=== PATIENT | female | born 1940 | race African-American/Black ===

== ENCOUNTER 2016-11-23 18:23 | Inpatient (IN) | payer BC, OTHER ==
--- NOTE | 2016-11-23 19:11 | PDOC ---
History of Present Illness - History of Present Illness Initial Comments: 11/23/16 20:10 The patient is a 76 year old female, with a significant past medical history of COPD/Asthma, who presents to the emergency department sent by PCP for dyspnea on exertion and dry cough for 1 week. She states she is not dyspneic at baseline , however, has noticed worsening shortness of breath with walking short distances. She also reports a dry, nonproductive cough, which has been worsening over the past few days. She states her asthma is typically controlled with at-home nebulizer treatments, but states they have not been helping with her current symptoms. She states she was seen at her PCP office today, received 2 nebulizer treatments and the physician referred her to the ED for pulse ox of 86% after receiving the treatments. She denies chest pain, headache and dizziness. She denies fever, chills, nausea , vomit, diarrhea and constipation. She denies dysuria, frequency, urgency and hematuria. PCP - Dr. Edilson Day <Nathalie Benjamin - Last Filed: 11/23/16 21:07> <Rand Heard - Last Filed: 11/24/16 01:14> - General Chief Complaint: Shortness of Breath Stated Complaint: PCP SENT/ASTHMA Time Seen by Provider: 11/23/16 18:50 Past History <Nathalie Benjamin - Last Filed: 11/23/16 21:07> - Past Medical History Asthma: Yes Cancer: Yes (rt breast, colon ,ovarian) COPD: Yes Diabetes: Yes HTN: Yes Hypercholesterolemia: Yes - Surgical History Abdominal Surgery: Yes (colon) Appendectomy: Yes - Psycho/Social/Smoking Cessation Hx Anxiety: No Suicidal Ideation: No Smoking History: Former smoker Have you smoked in the past 12 months: No Information on smoking cessation initiated: No Hx Alcohol Use: No Drug/Substance Use Hx: No Substance Use Type: None <Rand Heard - Last Filed: 11/24/16 01:14> - Past Medical History Allergies/Adverse Reactions: Allergies Allergy/AdvReac Type Severity Reaction Status Date / Time No Known Allergies Allergy Unverified 11/23/16 18:42 Home Medications: Ambulatory Orders Insulin Glargine,Hum.rec.anlog [Lantus Solostar] 60 unit SQ ASDIR 02/06/14 Prednisone 20 mg PO DAILY #90 04/16/14 Albuterol Sulfate [Proair Respiclick] 90 mcg IH ASDIR 11/23/16 Amlodipine Besylate [Norvasc -] 10 mg PO DAILY 11/23/16 Cholecalciferol (Vitamin D3) [Vitamin D3 -] 1,000 unit PO DAILY 11/23/16 Folic Acid - 1 mg PO DAILY 11/23/16 Ipratropium [place] 0.2 mg IH ASDIR 11/23/16 Lisinopril [Prinivil] 20 mg PO DAILY 11/23/16 Salmeterol/Fluticasone [Advair 500Mcg/50Mcg] 1 inh PO BID 11/23/16 Simvastatin [Zocor] 10 mg PO HS 11/23/16 Sitagliptin Phos/Metformin HCl [Janumet 50-500 mg Tablet] 1 each PO DAILY Review of Systems - Review of Systems Able to Perform ROS?: Yes Comments:: 11/23/16 20:10 CONSTITUTIONAL: Absent: fever, chills, diaphoresis, generalized weakness, malaise, loss of appetite HEENT: Absent: rhinorrhea, nasal congestion, throat pain, throat swelling, difficulty swallowing, mouth swelling, ear pain, eye pain, visual Changes CARDIOVASCULAR: Absent: chest pain, syncope, palpitations, irregular heart rate, lightheadedness , peripheral edema RESPIRATORY: (+) cough, shortness of breath, dyspnea with exertion, Absent: orthopnea, wheezing, stridor, hemoptysis GASTROINTESTINAL: Absent: abdominal pain, abdominal distension, nausea, vomiting, diarrhea, constipation, melena, hematochezia GENITOURINARY: Absent: dysuria, frequency, urgency, hesitancy, hematuria, flank pain, genital pain MUSCULOSKELETAL: Absent: myalgia, arthralgia, joint swelling SKIN: Absent: rash, itching, pallor HEMATOLOGIC/IMMUNOLOGIC: Absent: easy bleeding, easy bruising, lymphadenopathy, frequent infections ENDOCRINE: Absent: unexplained weight gain, unexplained weight loss, heat intolerance, cold intolerance NEUROLOGIC: Absent: headache, focal weakness or paresthesias, dizziness, unsteady gait, seizure, mental status changes, bladder or bowel incontinence PSYCHIATRIC: Absent: anxiety, depression, suicidal or homicidal ideation, hallucinations. <Nathalie Benjamin - Last Filed: 11/23/16 21:07> *Physical Exam - Vital Signs Last Vital Signs Temp Pulse Resp BP Pulse Ox 97.7 F 88 18 143/76 93 L 11/23/16 18:42 11/23/16 18:42 11/23/16 18:42 11/23/16 18:42 11/23/16 18:42 - Physical Exam Comments: 11/23/16 20:10 GENERAL: Well developed, well nourished. Awake and alert. No acute distress. HEENT: Normocephalic, atraumatic. PERRLA, EOMI. No conjunctival pallor. Sclera are non- icteric. Moist mucous membranes. Oropharynx is clear. NECK: Supple. Full ROM. No JVD. Carotid pulses 2+ and symmetric, without bruits. No thyromegaly. No lymphadenopathy. CARDIOVASCULAR: Regular rate and rhythm. No murmurs, rubs, or gallops. Distal pulses are 2+ and symmetric. PULMONARY: No evidence of respiratory distress. Lungs clear to auscultation bilaterally. No wheezing, rales or rhonchi. ABDOMINAL: Soft. Non-tender. Non-distended. No rebound or guarding. No organomegaly. Normoactive bowel sounds. MUSCULOSKELETAL Normal range of motion at all joints. No bony deformities or tenderness. No CVA tenderness. EXTREMITIES: No cyanosis. No clubbing. No edema. No calf tenderness. SKIN: Warm and dry. Normal capillary refill. No rashes. No jaundice. NEUROLOGICAL: Alert, awake, appropriate. Cranial nerves 2-12 intact. Normoreflexic in the upper and lower extremities. Normal speech. Toes are down-going bilaterally. Gait is normal without ataxia. PSYCHIATRIC: Cooperative. Good eye contact. Appropriate mood and affect. <Nathalie Benjamin - Last Filed: 11/23/16 21:07> - Vital Signs Last Vital Signs Temp Pulse Resp BP Pulse Ox 97.7 F 88 18 143/76 93 L 11/23/16 18:42 11/23/16 18:42 11/23/16 18:42 11/23/16 18:42 11/23/16 18:42 <Rand Heard - Last Filed: 11/24/16 01:14> ED Treatment Course - LABORATORY CBC & Chemistry Diagram: 11/23/16 19:50 11/23/16 19:50 - Medications Given in the ED: ED Medications Discontinued Medications Generic Name Dose Route Start Last Admin Trade Name [place] PRN Reason Stop Dose Admin Magnesium Sulfate 2 gm 11/23/16 19:44 11/23/16 20:02 Magnesium Sulfate IVPB 11/23/16 19:45 2 gm ONCE ONE Administration <Nathalie Benjamin - Last Filed: 11/23/16 21:07> - LABORATORY CBC & Chemistry Diagram: 11/23/16 19:50 11/23/16 19:50 <Rand Heard - Last Filed: 11/24/16 01:14> Medical Decision Making - Medical Decision Making 11/23/16 21:07 Dr. Hayley Corey was paged requesting a callback for doctor to doctor consult regarding patient admission. <Nathalie Benjamin - Last Filed: 11/23/16 21:07> - Medical Decision Making 11/24/16 01:07 76-year-old female sent from Dr. Petty's office for admission for asthma exacerbation Dr. Petty did give her steroids IM and several breathing treatments prior to her arrival. -his referral note stated that she was 85% pulse ox when she arrived in his office. The patient states that she is oxygen dependent and usually uses about 2 L nasal cannula at home Patient still has scattered wheezing She was admitted for asthma exacerbation <Rand Heard - Last Filed: 11/24/16 01:14> *DC/Admit/Observation/Transfer - Attestations Scribe Attestion: 11/23/16 20:11 Documentation prepared by Nathalie Benjamin, acting as medical appointment clerk for Rand Heard MD <Nathalie Benjamin - Last Filed: 11/23/16 21:07> - Discharge Dispostion Admit: Yes <Rand Heard - Last Filed: 11/24/16 01:14> Diagnosis at time of Disposition: Asthma exacerbation - Referrals
[2016-11-23] MEDS ORDERED: MAGNESIUM SULF 50% (8.12 MEQ/2 ML-1 GM VIAL) IVPB ONE (19:44)
[2016-11-23] MEDS ORDERED: MAGNESIUM SULF 50% (8.12 MEQ/2 ML-1 GM VIAL) ONE (19:47)
[2016-11-23] MEDS ORDERED: ALBUTEROL SO4 2.5/IPRATROPIUM 0.5 INH SOL 3 ML VIAL.NEB. NEB ONE (19:51)
[2016-11-23] MEDS ORDERED: predniSONE 20 MG TABLET (UD) PO ONE (20:10)
[2016-11-23 20:11] LABS: BASOPHIL 0.6 % (0-2.0); EOSINOPHIL 3.2 % (0-4.5); MCH 22.1 pg (25.7-33.7); MCHC 31.4 g/dl (32.0-36.0); MEAN CELL VOLUME 70.3 fl (80-96); MEAN PLT VOLUME 8.7 fl (7.5-11.1); NEUTROPHILS 74.2 % (42.8-82.8); PLATELET COUNT 408 K/MM3 (134-434); RDW 16.6 % (11.6-15.6)
[2016-11-23 20:24] LABS: ALBUMIN 3.7 g/dl (3.4-5.0); ANION GAP 10 (8-16); BILIRUBIN,TOTAL 0.3 mg/dL (0.2-1.0); CALCIUM 9.6 mg/dL (8.5-10.1); CO2 28 mmol/L (21-32); CREATININE 0.8 mg/dL (0.55-1.02); GLUCOSE,RANDOM 123 mg/dL (74-106); SGOT/AST 9 U/L (15-37); SGPT/ALT 16 U/L (12-78)
[2016-11-23 20:25] LABS: ALK PHOS 135 U/L (45-117); INR 1.07 (0.82-1.09); PROTHROMBIN TIME (PATIENT) 11.8 SEC (9.98-11.88); TOT PROT 7.1 g/dl (6.4-8.2)
[2016-11-23 20:28] LABS: TROPONIN I < 0.02 ng/ml (0.00-0.05)
[2016-11-23] MEDS ORDERED: HEMOQUE CONTROL SOLUTION ONE (20:28)
[2016-11-23] MEDS ORDERED: predniSONE 20 MG TABLET (UD) ONE ×2 (20:28→20:50)
[2016-11-23] MEDS ORDERED: ALBUTEROL SO4 2.5/IPRATROPIUM 0.5 INH SOL 3 ML VIAL.NEB. NEB PRN (21:14)
[2016-11-23] MEDS: ATORVASTATIN CA 10 MG TABLET (FP) PO SCH (23:08)
[2016-11-23] MEDS: BUDESONIDE/FORMETEROL FUMARATE 160/4.5 mcg INHALER IH SCH (23:12)
[2016-11-23 23:40] VITALS: BMI 31.0
[2016-11-24] MEDS: methylPREDNISolone NA SUCC 125 MG/2 ML VIAL IVPB SCH ×2 (01:56→10:23)
[2016-11-24] MEDS: metFORMIN HCL 500 MG TABLET (FP) PO SCH (06:27)
[2016-11-24] MEDS: sitaGLIPtin PHOSPHATE 50 MG TABLET PO SCH (06:29)
[2016-11-24] MEDS: INSULIN SLIDING SCALE (NOVOLOG) 1 VIAL SQ SCH ×3 (06:30→18:36)
[2016-11-24] MEDS ORDERED: INSULIN DETEMIR 100 UNITS/ML MDV SQ SCH (07:00)
[2016-11-24 08:26] LABS: BASOPHIL 0.1 % (0-2.0); EOSINOPHIL 0.5 % (0-4.5); MCH 22.3 pg (25.7-33.7); MCHC 31.4 g/dl (32.0-36.0); MEAN PLT VOLUME 8.3 fl (7.5-11.1); NEUTROPHILS 95.1 % (42.8-82.8); PLATELET COUNT 390 K/MM3 (134-434); RDW 16.1 % (11.6-15.6); WHITE BLOOD COUNT 11.7 K/mm3 (4.0-10.0)
[2016-11-24 09:35] LABS: ALBUMIN 3.6 g/dl (3.4-5.0); ALK PHOS 131 U/L (45-117); ANION GAP 12 (8-16); BILIRUBIN,TOTAL 0.4 mg/dL (0.2-1.0); CALCIUM 9.6 mg/dL (8.5-10.1); CO2 26 mmol/L (21-32); CREATININE 0.9 mg/dL (0.55-1.02); GLUCOSE,RANDOM 152 mg/dL (74-106); SGOT/AST 7 U/L (15-37); SGPT/ALT 15 U/L (12-78); TOT PROT 7.4 g/dl (6.4-8.2)
[2016-11-24] MEDS ORDERED: PATIENT'S OWN MEDICATION (NON-FORMULARY) (Sitagliptin Phos/Metformin Hcl [Janumet 50-500 M PO SCH (10:00)
[2016-11-24] MEDS: amLODIPine BESYLATE 10 MG TABLET (FP) PO SCH (10:23)
[2016-11-24] MEDS: FOLIC ACID 1 MG TABLET (FP) PO SCH (10:23)
[2016-11-24] MEDS: PANTOPRAZOLE 40 MG TABLET (FP) PO SCH (10:23)
[2016-11-24] MEDS: LISINOPRIL 20 MG TABLET (FP) PO SCH (10:23)
[2016-11-24] MEDS: BUDESONIDE/FORMETEROL FUMARATE 160/4.5 mcg INHALER IH SCH ×2 (10:24→22:29)
--- NOTE | 2016-11-24 11:21 | HP ---
Admitting History and Physical - Primary Care Physician PCP: Edilson Day - Admission Chief Complaint: SOB History of Present Illness: -ER HISTORY History of Present Illness Initial Comments: 11/23/16 20:10 The patient is a 76 year old female, with a significant past medical history of COPD/Asthma, who presents to the emergency department sent by PCP for dyspnea on exertion and dry cough for 1 week. She states she is not dyspneic at baseline , however, has noticed worsening shortness of breath with walking short distances. She also reports a dry, nonproductive cough, which has been worsening over the past few days. She states her asthma is typically controlled with at-home nebulizer treatments, but states they have not been helping with her current symptoms. She states she was seen at her PCP office today, received 2 nebulizer treatments and the physician referred her to the ED for pulse ox of 86% after receiving the treatments. She denies chest pain, headache and dizziness. She denies fever, chills, nausea , vomit, diarrhea and constipation. She denies dysuria, frequency, urgency and hematuria. PCP - Dr. 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 She has worsening SOB for 1 week - exertional dyspnea . She has chronic exertional dyspnea , orthopnea, but it has worsened for the past week. Denies any fever, chills, cold like symptoms Has not seen a cloth doubling machine operator No chest pain States she never has wheezing History Source: Patient Limitations to Obtaining History: No Limitations - Past Medical History Cardiovascular: Yes: HTN Pulmonary: Yes: Asthma, COPD Endocrine: Yes: Diabetes Mellitus - Smoking History Smoking history: Former smoker Have you smoked in the past 12 months: No If you are a former smoker, when did you quit?: years ago - Alcohol/Substance Use Hx Alcohol Use: No Home Medications - Allergies Allergies/Adverse Reactions: Allergies Allergy/AdvReac Type Severity Reaction Status Date / Time No Known Allergies Allergy Unverified 11/23/16 18:42 - Home Medications Home Medications: Ambulatory Orders Insulin Glargine,Hum.rec.anlog [Lantus Solostar] 60 unit SQ ASDIR 04/16/14 Prednisone 20 mg PO DAILY #90 02/06/14 Albuterol Sulfate [Proair Respiclick] 90 mcg IH ASDIR 11/23/16 Amlodipine Besylate [Norvasc -] 10 mg PO DAILY 11/23/16 Cholecalciferol (Vitamin D3) [Vitamin D3 -] 1,000 unit PO DAILY 11/23/16 Folic Acid - 1 mg PO DAILY 11/23/16 Ipratropium [place] 0.2 mg IH ASDIR 11/23/16 Lisinopril [Prinivil] 20 mg PO DAILY 11/23/16 Salmeterol/Fluticasone [Advair 500Mcg/50Mcg] 1 inh PO BID 11/23/16 Simvastatin [Zocor] 10 mg PO HS 11/23/16 Sitagliptin Phos/Metformin HCl [Janumet 50-500 mg Tablet] 1 each PO DAILY Review of Systems - Review of Systems Constitutional: denies: Chills, Fever Cardiovascular: denies: Chest Pain Respiratory: reports: Exercise Intolerance, SOB Physical Examination Vital Signs: Vital Signs Temperature 98.5 F 11/24/16 06:00 Pulse Rate 83 11/24/16 06:00 Respiratory Rate 20 11/24/16 06:00 Blood Pressure 109/58 11/24/16 06:00 O2 Sat by Pulse Oximetry (%) 98 11/23/16 23:44 Constitutional: Yes: No Distress, Calm Cardiovascular: Yes: Regular Rate and Rhythm Respiratory: Yes: Diminished (decreased breath sounds) Gastrointestinal: Yes: Normal Bowel Sounds, Soft, Abdomen, Obese. No: Distention, Tenderness Edema: Yes Edema: LLE: Trace, RLE: Trace Psychiatric: Yes: Alert, Oriented Labs: CBC, BMP 11/24/16 08:05 11/24/16 08:05 Imaging - Results Chest X-ray: Image Reviewed (atelectasis, granuloma) EKG: Image Reviewed (Sinus) Problem List - Problems (1) Asthma exacerbation Code(s): J45.901 - UNSPECIFIED ASTHMA WITH (ACUTE) EXACERBATION (2) COPD (chronic obstructive pulmonary disease) Code(s): J44.9 - CHRONIC OBSTRUCTIVE PULMONARY DISEASE, UNSPECIFIED Qualifiers : COPD type: COPD with acute exacerbation Qualified Code(s): J44.1 - Chronic obstructive pulmonary disease with (acute) exacerbation (3) 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 (4) Diastolic CHF Code(s): I50.30 - UNSPECIFIED DIASTOLIC (CONGESTIVE) HEART FAILURE Qualifiers : Congestive heart failure chronicity: chronic Qualified Code(s): I50.32 - Chronic diastolic (congestive) heart failure Assessment/Plan PLAN --- Continue with Solumedrol -- start Zithromax -- Nebs standing -- check Echo and CT chest -- Pulmonary evaluation -- GI prophylaxis- Protonix -- DVT prophylaxis-- Lovenox -- start IV lasix for diastolic dysfunction due to COPD
--- NOTE | 2016-11-24 13:44 | EKG ---
Test Reason : Blood Pressure : / mmHG Vent. Rate : 085 BPM Atrial Rate : 085 BPM P-R Int : 116 ms QRS Dur : 080 ms QT Int : 370 ms P-R-T Axes : 065 032 062 degrees QTc Int : 440 ms NORMAL SINUS RHYTHM NORMAL ECG NO PREVIOUS ECGS AVAILABLE Confirmed by CHUYITA ARTEAGA, ANITA ([id number]) on 11/24/2016 1:43:43 PM Referred By: Confirmed By:ANITA BOOGIE MD
--- NOTE | 2016-11-24 14:45 | CON.PULM ---
Consult Consult Specialty:: PULMONARY Referred by:: Dr. Corey Reason for Consultation:: shortness of breath - History of Present Illness Chief Complaint: shortness of breath History of Present Illness: 76yo female with h/o HTN, DM, hyperlipidemia, asthma/COPD, chronic hypoxic respiratory failure on home O2, former smoker who presents with worsening shortness of breath x 1 week. She denies any chest pain or discomfort. No palpitations. She reports a nonproductive cough and no wheezing but she states that she never wheezes. He did notice some pedal edema starting 2 days prior to admission and reports waking up at night short of breath and gasping. She has never been intubated, is on prednisone maybe twice a year, has not been hospitalized in a few years for asthma/COPD, maintained on Symbicort and Proair at home. She is a long time smoker, quit 6 years ago. 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 - History Source History Provided By: Patient, Medical Record Limitations to Obtaining History: No Limitations - Past Medical History Cardio/Vascular: Yes: HTN Pulmonary: Yes: Asthma, COPD Endocrine: Yes: Diabetes Mellitus - Alcohol/Substance Use Hx Alcohol Use: No - Smoking History Smoking history: Former smoker Have you smoked in the past 12 months: No If you are a former smoker, when did you quit?: years ago Home Medications - Allergies Allergies/Adverse Reactions: Allergies Allergy/AdvReac Type Severity Reaction Status Date / Time No Known Allergies Allergy Unverified 11/23/16 18:42 - Home Medications Home Medications: Ambulatory Orders Insulin Glargine,Hum.rec.anlog [Lantus Solostar] 60 unit SQ ASDIR 02/06/14 Prednisone 20 mg PO DAILY #90 02/06/14 Albuterol Sulfate [Proair Respiclick] 90 mcg ASDIR 11/23/16 Amlodipine Besylate [Norvasc -] 10 mg PO DAILY 11/23/16 Cholecalciferol (Vitamin D3) [Vitamin D3 -] 1,000 unit PO DAILY 11/23/16 Folic Acid - 1 mg PO DAILY 11/23/16 Ipratropium [place] 0.2 mg IH ASDIR 11/23/16 Lisinopril [Prinivil] 20 mg PO DAILY 11/23/16 Salmeterol/Fluticasone [Advair 500Mcg/50Mcg] 1 inh PO BID 11/23/16 Simvastatin [Zocor] 10 mg PO HS 11/23/16 Sitagliptin Phos/Metformin HCl [Janumet 50-500 mg Tablet] 1 each PO DAILY Family Disease History - Family Disease History Other Family History: non-contributory Review of Systems - Review of Systems Constitutional: reports: Weakness. denies: Chills, Fever Eyes: denies: Recent Change in Vision HENT: denies: Nasal Congestion, Throat Pain Neck: denies: Stiffness, Tenderness Cardiovascular: reports: Edema, Shortness of Breath. denies: Chest Pain, Palpitations Respiratory: reports: Cough, Orthopnea, PND, SOB, SOB on Exertion. denies: Hemoptysis, Wheezing Gastrointestinal: denies: Abdominal Pain, Nausea, Vomiting Genitourinary: denies: Dysuria, Hematuria Neurological: denies: Dizziness, Headache Physical Exam Vital Sings: Vital Signs Temperature 98.2 F 11/24/16 14:13 Pulse Rate 99 H 11/24/16 14:13 Respiratory Rate 16 11/24/16 14:13 Blood Pressure 112/53 11/24/16 14:13 O2 Sat by Pulse Oximetry (%) 98 11/24/16 09:00 Constitutional: Yes: Mild Distress (mildly tachypneic at rest) Eyes: Yes: Conjunctiva Clear, EOM Intact HENT: Yes: Atraumatic, Normocephalic Neck: Yes: Supple, Trachea Midline Cardiovascular: Yes: Regular Rate and Rhythm Respiratory: Yes: Rales (bibasilar) ...Clubbing: No Gastrointestinal: Yes: Normal Bowel Sounds, Soft. No: Tenderness Edema: No Neurological: Yes: Alert, Oriented Labs: CBC, BMP 11/24/16 08:05 11/24/16 08:05 Imaging - Results Chest X-ray: Report Reviewed, Image Reviewed (cardiomegaly, pulmonary vascular congestion, small bilateral effusions) Assessment/Plan r/o CHF exacerbation Asthma/COPD Chronic Hypoxic Respiratory Failure Former smoker HTN DM Hyperlipidemia - suspect CHF over COPD at this time given CXR and clinical exam - will start trial of lasix - monitor urine output, creatinine - O2 to keep SpO2>90% - inhaled bronchodilators - will decrease steroids to 40mg q8h - echocardiogram - DVT prophylaxis - will follow with you Thank you for this consult Sam Boogie MD
[2016-11-24] MEDS: FUROSEMIDE 40 MG/4 ML INJECTABLE VIAL IVPUSH SCH (17:27)
[2016-11-24] MEDS: methylPREDNISolone NA SUCC 40 MG/1 ML VIAL IVPB SCH (17:27)
[2016-11-24 17:39] LABS: URINE APPEARANCE SLCLOUDY; URINE BILIRUBIN NEGATIVE (NEGATIVE); URINE BLOOD NEGATIVE (NEGATIVE); URINE COLOR LTYELLOW; URINE GLUCOSE (UA) 1+ (NEGATIVE); URINE KETONE NEGATIVE (NEGATIVE); URINE NITRITE NEGATIVE (NEGATIVE); URINE PROTEIN NEGATIVE (NEGATIVE); URINE UROBILINOGEN NEGATIVE E.U./dl (0.2-1.0)
[2016-11-24 17:42] LABS: URINE LEUK ESTERASE TRACE (NEGATIVE)
[2016-11-24 17:43] LABS: URINE HYALINE CAST 1 /lpf; URINE MUCUS RARE; URINE RBC <1 /hpf (0-3); URINE WBC 3 /hpf (3-5)
[2016-11-24] MEDS: AZITHROMYCIN IVPB 250 ML IVPB SCH (20:30)
[2016-11-24] MEDS: ALBUTEROL SO4 2.5/IPRATROPIUM 0.5 INH SOL 3 ML VIAL.NEB. NEB PRN (21:50)
[2016-11-24] MEDS: ATORVASTATIN CA 10 MG TABLET (FP) PO SCH (22:06)
[2016-11-24] MEDS ORDERED: PT OWN MED DRAWER 7, Y5N ONE (22:12)
[2016-11-25] MEDS: methylPREDNISolone NA SUCC 40 MG/1 ML VIAL IVPB SCH ×3 (02:00→22:11)
[2016-11-25] MEDS: metFORMIN HCL 500 MG TABLET (FP) PO SCH (06:51)
[2016-11-25] MEDS: sitaGLIPtin PHOSPHATE 50 MG TABLET PO SCH (06:51)
[2016-11-25] MEDS: INSULIN DETEMIR 100 UNITS/ML MDV SQ SCH (06:51)
[2016-11-25] MEDS: INSULIN SLIDING SCALE (NOVOLOG) 1 VIAL SQ SCH ×3 (06:52→18:10)
[2016-11-25] MEDS: ALBUTEROL SO4 2.5/IPRATROPIUM 0.5 INH SOL 3 ML VIAL.NEB. NEB PRN ×2 (06:56→17:44)
--- NOTE | 2016-11-25 09:13 | PN ---
Progress Note (short form) - Note Progress Note: Breathing feels better today. Some dry cough. Reports significant amount of urine output due to Lasix given yesterday. Intake & Output 11/22/16 11/23/16 11/24/16 11/25/16 23:59 23:59 23:59 23:59 Intake Total 100 250 100 Balance 100 250 100 Weight 181 lb Last Vital Signs Temp Pulse Resp BP Pulse Ox 98.5 F 91 H 20 124/73 98 11/25/16 06:16 11/25/16 06:16 11/25/16 06:16 11/25/16 06:16 11/24/16 21:00 Active Medications Albuterol/Ipratropium (Duoneb -) 1 amp NEB Q4H PRN PRN Reason: ASTHMA Last Admin: 11/25/16 06:56 Dose: 1 amp Amlodipine Besylate (Norvasc -) 10 mg PO DAILY [facility] Last Admin: 11/24/16 10:23 Dose: 10 mg Atorvastatin Calcium (Lipitor -) 10 mg PO HS [facility] Last Admin: 11/24/16 22:06 Dose: 10 mg Budesonide/Formoterol Fumarate (Symbicort 160/4.5mcg -) 2 puff IH BID [facility] Last Admin: 11/24/16 22:29 Dose: 2 puff Enoxaparin Sodium (Lovenox -) 40 mg SQ DAILY [facility] Folic Acid (Folic Acid -) 1 mg PO DAILY [facility] Last Admin: 11/24/16 10:23 Dose: 1 mg Furosemide (Lasix Injection -) 20 mg IVPUSH DAILY [facility] Last Admin: 11/24/16 17:27 Dose: 20 mg Azithromycin (Zithromax 500mg Ivpb (Pre-Docked)) 250 mls @ 250 mls/hr IVPB DAILY [facility] Last Admin: 11/24/16 20:30 Dose: 250 mls/hr Insulin Aspart (Novolog Vial Sliding Scale -) 1 vial SQ TIDAC [facility] PRN Reason: Protocol Last Admin: 11/25/16 06:52 Dose: 4 unit Insulin Detemir (Levemir Vial) 35 units SQ AM [facility] Last Admin: 11/25/16 06:51 Dose: 35 units Lisinopril (Prinivil) 20 mg PO DAILY [facility] Last Admin: 11/24/16 10:23 Dose: 20 mg Metformin HCl (Glucophage -) 500 mg PO AM [facility] Last Admin: 11/25/16 06:51 Dose: 500 mg Methylprednisolone Sodium Succinate (Solu-Medrol -) 40 mg IVPB Q8H-IV [facility] Last Admin: 11/25/16 02:00 Dose: 40 mg Pantoprazole Sodium (Protonix -) 40 mg PO DAILY [facility] Last Admin: 11/24/16 10:23 Dose: 40 mg Sitagliptin Phosphate (Januvia -) 50 mg PO DAILY@0700 [facility] Last Admin: 11/25/16 06:51 Dose: 50 mg Constitutional: Yes: Awake and alert, NAD Eyes: Yes: Conjunctiva Clear, EOM Intact HENT: Yes: Atraumatic, Normocephalic Neck: Yes: Supple, Trachea Midline Cardiovascular: Yes: Regular Rate and Rhythm Respiratory: Yes: Scattered rhonchi, no wheeze ...Clubbing: No Gastrointestinal: Yes: Normal Bowel Sounds, Soft. No: Tenderness Edema: No Neurological: Yes: Alert, Oriented Labs: Assessment/Plan (?) CHF exacerbation Asthma/COPD Chronic Hypoxic Respiratory Failure on home O2 since 2011 Former smoker HTN DM Hyperlipidemia - monitor urine output, creatinine - O2 to keep SpO2>90% - inhaled bronchodilators - will decrease steroids to 40mg q12h - Check echocardiogram - DVT prophylaxis - If stable/Improved in AM -> can possibly change to Prednsione and D/C planning - Zmax for [address] Ortiz
[2016-11-25] MEDS: ENOXAPARIN NA (PORCINE) 40 MG/0.4 ML DISP.SYRIN SQ SCH (10:37)
[2016-11-25] MEDS: AZITHROMYCIN IVPB 250 ML IVPB SCH (10:37)
[2016-11-25] MEDS: FUROSEMIDE 40 MG/4 ML INJECTABLE VIAL IVPUSH SCH (10:37)
[2016-11-25] MEDS: FOLIC ACID 1 MG TABLET (FP) PO SCH (10:38)
[2016-11-25] MEDS: PANTOPRAZOLE 40 MG TABLET (FP) PO SCH (10:38)
[2016-11-25] MEDS: LISINOPRIL 20 MG TABLET (FP) PO SCH (10:38)
[2016-11-25] MEDS: amLODIPine BESYLATE 10 MG TABLET (FP) PO SCH (10:38)
[2016-11-25] MEDS: BUDESONIDE/FORMETEROL FUMARATE 160/4.5 mcg INHALER IH SCH ×2 (10:39→22:11)
--- NOTE | 2016-11-25 12:31 | PN ---
Progress Note, Physician Chief Complaint: feels better had SOB last night she ambulates to the bathroom without O2 on and she gets more SOB not at her baseline yet - Current Medication List Current Medications: Active Medications Albuterol Sulfate (Ventolin 0.083% Nebulizer Soln -) 1 amp NEB TIDR ZAKI Albuterol/Ipratropium (Duoneb -) 1 amp NEB Q4H PRN PRN Reason: ASTHMA Last Admin: 11/25/16 06:56 Dose: 1 amp Amlodipine Besylate (Norvasc -) 10 mg PO DAILY [facility] Last Admin: 11/25/16 10:38 Dose: 10 mg Atorvastatin Calcium (Lipitor -) 10 mg PO HS [facility] Last Admin: 11/24/16 22:06 Dose: 10 mg Budesonide/Formoterol Fumarate (Symbicort 160/4.5mcg -) 2 puff IH BID [facility] Last Admin: 11/25/16 10:39 Dose: 2 puff Enoxaparin Sodium (Lovenox -) 40 mg SQ DAILY [facility] Last Admin: 11/25/16 10:37 Dose: 40 mg Folic Acid (Folic Acid -) 1 mg PO DAILY [facility] Last Admin: 11/25/16 10:38 Dose: 1 mg Furosemide (Lasix Injection -) 20 mg IVPUSH DAILY [facility] Last Admin: 11/25/16 10:37 Dose: 20 mg Azithromycin (Zithromax 500mg Ivpb (Pre-Docked)) 250 mls @ 250 mls/hr IVPB DAILY [facility] Last Admin: 11/25/16 10:37 Dose: 250 mls/hr Insulin Aspart (Novolog Vial Sliding Scale -) 1 vial SQ TIDAC [facility] PRN Reason: Protocol Last Admin: 11/25/16 12:05 Dose: 6 unit Insulin Detemir (Levemir Vial) 35 units SQ AM [facility] Last Admin: 11/25/16 06:51 Dose: 35 units Lisinopril (Prinivil) 20 mg PO DAILY [facility] Last Admin: 11/25/16 10:38 Dose: 20 mg Metformin HCl (Glucophage -) 500 mg PO AM [facility] Last Admin: 11/25/16 06:51 Dose: 500 mg Methylprednisolone Sodium Succinate (Solu-Medrol -) 40 mg IVPB BID [facility] Last Admin: 11/25/16 10:39 Dose: 40 mg Pantoprazole Sodium (Protonix -) 40 mg PO DAILY [facility] Last Admin: 11/25/16 10:38 Dose: 40 mg Sitagliptin Phosphate (Januvia -) 50 mg PO DAILY@0700 [facility] Last Admin: 11/25/16 06:51 Dose: 50 mg - Objective Vital Signs: Vital Signs Temperature 98.0 F 11/25/16 09:00 Pulse Rate 63 11/25/16 10:10 Respiratory Rate 18 11/25/16 09:00 Blood Pressure 117/61 11/25/16 09:00 O2 Sat by Pulse Oximetry (%) 94 L 11/25/16 10:10 Constitutional: Yes: No Distress, Calm Cardiovascular: Yes: Regular Rate and Rhythm Respiratory: Yes: Diminished Gastrointestinal: Yes: Normal Bowel Sounds, Soft, Abdomen, Obese. No: Distention, Tenderness Edema: No Labs: CBC, BMP 11/24/16 08:05 11/24/16 08:05 INR, PTT INR 1.07 (0.82-1.09) 11/23/16 19:50 Problem List - Problems (1) Asthma exacerbation Code(s): J45.901 - UNSPECIFIED ASTHMA WITH (ACUTE) EXACERBATION (2) COPD (chronic obstructive pulmonary disease) Code(s): J44.9 - CHRONIC OBSTRUCTIVE PULMONARY DISEASE, UNSPECIFIED Qualifiers : COPD type: COPD with acute exacerbation Qualified Code(s): J44.1 - Chronic obstructive pulmonary disease with (acute) exacerbation (3) 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 (4) Diastolic CHF Code(s): I50.30 - UNSPECIFIED DIASTOLIC (CONGESTIVE) HEART FAILURE Qualifiers : Congestive heart failure chronicity: chronic Qualified Code(s): I50.32 - Chronic diastolic (congestive) heart failure Assessment/Plan PLAN --- Continue tapering Solumedrol -- on Zithromax -- Nebs standing -- echo and CT chest noted-- d/w pt -- Pulmonary evaluation appreciated -- GI prophylaxis- Protonix -- DVT prophylaxis-- Lovenox --IV Lasix-- pt has good response
[2016-11-25] MEDS: ALBUTEROL SO4 0.083% IH SOL 2.5 MG/3 ML VIAL.NEB. NEB SCH ×2 (14:23→22:37)
[2016-11-25] MEDS: ATORVASTATIN CA 10 MG TABLET (FP) PO SCH (22:11)
[2016-11-26] MEDS: ALBUTEROL SO4 0.083% IH SOL 2.5 MG/3 ML VIAL.NEB. NEB SCH ×3 (06:46→22:00)
[2016-11-26] MEDS: INSULIN DETEMIR 100 UNITS/ML MDV SQ SCH (06:51)
[2016-11-26] MEDS: metFORMIN HCL 500 MG TABLET (FP) PO SCH (06:52)
[2016-11-26] MEDS: sitaGLIPtin PHOSPHATE 50 MG TABLET PO SCH (06:52)
[2016-11-26] MEDS: INSULIN SLIDING SCALE (NOVOLOG) 1 VIAL SQ SCH ×3 (06:52→18:20)
--- NOTE | 2016-11-26 08:46 | PN ---
Progress Note (short form) - Note Progress Note: SUBJECTIVE: Patient seen and examined. Still feels short of breath. No distress. Chart reviewed. Denies chest pain. OBJECTIVE: Vital Signs 11/26/16 06:00 Temperature 98.3 F Pulse Rate 94 H Respiratory 20 Rate Blood Pressure 104/70 Intake & Output 11/25/16 11/26/16 11/26/16 23:59 07:59 15:59 Intake Total 750 Output Total 1 1 Balance 749 -1 Weight 82.463 kg Intake: IVPB 300 Oral 450 Output: Urine 1 1 Void 1 1 Other: Voiding Method Toilet Weight Measurement Method Built in [facility] Active Medications Albuterol Sulfate (Ventolin 0.083% Nebulizer Soln -) 1 amp NEB TIDR [facility] Last Admin: 11/26/16 06:46 Dose: 1 amp Albuterol/Ipratropium (Duoneb -) 1 amp NEB Q4H PRN PRN Reason: ASTHMA Last Admin: 11/25/16 17:44 Dose: 1 amp Amlodipine Besylate (Norvasc -) 10 mg PO DAILY [facility] Last Admin: 11/25/16 10:38 Dose: 10 mg Atorvastatin Calcium (Lipitor -) 10 mg PO HS [facility] Last Admin: 11/25/16 22:11 Dose: 10 mg Budesonide/Formoterol Fumarate (Symbicort 160/4.5mcg -) 2 puff IH BID [facility] Last Admin: 11/25/16 22:11 Dose: 2 puff Enoxaparin Sodium (Lovenox -) 40 mg SQ DAILY [facility] Last Admin: 11/25/16 10:37 Dose: 40 mg Folic Acid (Folic Acid -) 1 mg PO DAILY [facility] Last Admin: 11/25/16 10:38 Dose: 1 mg Furosemide (Lasix Injection -) 20 mg IVPUSH DAILY [facility] Last Admin: 11/25/16 10:37 Dose: 20 mg Azithromycin (Zithromax 500mg Ivpb (Pre-Docked)) 250 mls @ 250 mls/hr IVPB DAILY [facility] Last Admin: 11/25/16 10:37 Dose: 250 mls/hr Insulin Aspart (Novolog Vial Sliding Scale -) 1 vial SQ TIDAC [facility] PRN Reason: Protocol Last Admin: 11/26/16 06:52 Dose: 4 unit Insulin Detemir (Levemir Vial) 35 units SQ AM [facility] Last Admin: 11/26/16 06:51 Dose: 35 units Lisinopril (Prinivil) 20 mg PO DAILY [facility] Last Admin: 11/25/16 10:38 Dose: 20 mg Metformin HCl (Glucophage -) 500 mg PO AM [facility] Last Admin: 11/26/16 06:52 Dose: 500 mg Methylprednisolone Sodium Succinate (Solu-Medrol -) 40 mg IVPB BID [facility] Last Admin: 11/25/16 22:11 Dose: 40 mg Pantoprazole Sodium (Protonix -) 40 mg PO DAILY [facility] Last Admin: 11/25/16 10:38 Dose: 40 mg Sitagliptin Phosphate (Januvia -) 50 mg PO DAILY@0700 [facility] Last Admin: 11/26/16 06:52 Dose: 50 mg CBC, BMP 11/24/16 08:05 11/24/16 08:05 Laboratory Results - last 24 hr 11/25/16 11/25/16 11/26/16 11:46 17:51 06:51 POC Glucometer 257 235 214 PHYSICAL EXAMINATION: Constitutional: Yes: No Distress, Calm Cardiovascular: Yes: Regular Rate and Rhythm Respiratory: Yes: Scattered Rhonchi Gastrointestinal: Yes: Normal Bowel Sounds, Soft, Abdomen, Obese. No: Distention, Tenderness Edema: No ASSESSMENT & PLAN: - Clinically better. - Still short of breath. - Continue steroids. - Daily out of bed to chair. - Will follow. 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
[2016-11-26] MEDS ORDERED: PT OWN MED DRAWER 7, Y5N ONE (10:42)
[2016-11-26] MEDS: AZITHROMYCIN IVPB 250 ML IVPB SCH (10:44)
[2016-11-26] MEDS: FOLIC ACID 1 MG TABLET (FP) PO SCH (10:45)
[2016-11-26] MEDS: BUDESONIDE/FORMETEROL FUMARATE 160/4.5 mcg INHALER IH SCH ×2 (10:45→21:58)
[2016-11-26] MEDS: ENOXAPARIN NA (PORCINE) 40 MG/0.4 ML DISP.SYRIN SQ SCH (10:45)
[2016-11-26] MEDS: FUROSEMIDE 40 MG/4 ML INJECTABLE VIAL IVPUSH SCH (10:45)
[2016-11-26] MEDS: methylPREDNISolone NA SUCC 40 MG/1 ML VIAL IVPB SCH ×2 (10:46→21:57)
[2016-11-26] MEDS: PANTOPRAZOLE 40 MG TABLET (FP) PO SCH (10:46)
[2016-11-26] MEDS: LISINOPRIL 20 MG TABLET (FP) PO SCH (10:46)
[2016-11-26] MEDS: amLODIPine BESYLATE 10 MG TABLET (FP) PO SCH (10:46)
--- NOTE | 2016-11-26 15:37 | PN ---
Progress Note (short form) - Note Progress Note: Breathing feels slightly more labored today. Increased SOB / cough. Intake & Output 11/23/16 11/24/16 11/25/16 11/26/16 23:59 23:59 23:59 23:59 Intake Total 041 119 1210 Output Total 1 1 Balance 100 250 999 -1 Weight 181 lb 181 lb 12.8 oz Last Vital Signs Temp Pulse Resp BP Pulse Ox 97.9 F 93 H 20 122/66 94 L 11/26/16 15:29 11/26/16 15:29 11/26/16 15:29 11/26/16 15:29 11/25/16 21:00 Active Medications Albuterol Sulfate (Ventolin 0.083% Nebulizer Soln -) 1 amp NEB TIDR [facility] Last Admin: 11/26/16 14:15 Dose: 1 amp Albuterol/Ipratropium (Duoneb -) 1 amp NEB Q4H PRN PRN Reason: ASTHMA Last Admin: 11/25/16 17:44 Dose: 1 amp Amlodipine Besylate (Norvasc -) 10 mg PO DAILY [facility] Last Admin: 11/26/16 10:46 Dose: 10 mg Atorvastatin Calcium (Lipitor -) 10 mg PO HS [facility] Last Admin: 11/25/16 22:11 Dose: 10 mg Budesonide/Formoterol Fumarate (Symbicort 160/4.5mcg -) 2 puff IH BID [facility] Last Admin: 11/26/16 10:45 Dose: 2 puff Enoxaparin Sodium (Lovenox -) 40 mg SQ DAILY [facility] Last Admin: 11/26/16 10:45 Dose: 40 mg Folic Acid (Folic Acid -) 1 mg PO DAILY [facility] Last Admin: 11/26/16 10:45 Dose: 1 mg Furosemide (Lasix Injection -) 20 mg IVPUSH DAILY [facility] Last Admin: 11/26/16 10:45 Dose: 20 mg Azithromycin (Zithromax 500mg Ivpb (Pre-Docked)) 250 mls @ 250 mls/hr IVPB DAILY [facility] Last Admin: 11/26/16 10:44 Dose: 250 mls/hr Insulin Aspart (Novolog Vial Sliding Scale -) 1 vial SQ TIDAC [facility] PRN Reason: Protocol Last Admin: 11/26/16 12:38 Dose: 4 unit Insulin Detemir (Levemir Vial) 35 units SQ AM [facility] Last Admin: 11/26/16 06:51 Dose: 35 units Lisinopril (Prinivil) 20 mg PO DAILY [facility] Last Admin: 11/26/16 10:46 Dose: 20 mg Metformin HCl (Glucophage -) 500 mg PO AM [facility] Last Admin: 11/26/16 06:52 Dose: 500 mg Methylprednisolone Sodium Succinate (Solu-Medrol -) 40 mg IVPB BID [facility] Last Admin: 11/26/16 10:46 Dose: 40 mg Pantoprazole Sodium (Protonix -) 40 mg PO DAILY [facility] Last Admin: 11/26/16 10:46 Dose: 40 mg Sitagliptin Phosphate (Januvia -) 50 mg PO DAILY@0700 [facility] Last Admin: 11/26/16 06:52 Dose: 50 mg Constitutional: Yes: Awake and alert, NAD Eyes: Yes: Conjunctiva Clear, EOM Intact HENT: Yes: Atraumatic, Normocephalic Neck: Yes: Supple, Trachea Midline Cardiovascular: Yes: Regular Rate and Rhythm Respiratory: Yes: Scattered rhonchi, no wheeze ...Clubbing: No Gastrointestinal: Yes: Normal Bowel Sounds, Soft. No: Tenderness Edema: No Neurological: Yes: Alert, Oriented Labs: Laboratory Results - last 24 hr 11/25/16 11/26/16 11/26/16 17:51 06:51 12:38 POC Glucometer 235 214 229 Assessment/Plan Asthma/COPD Chronic Hypoxic Respiratory Failure on home O2 since 2011 Former smoker HTN DM Hyperlipidemia - monitor urine output, creatinine - O2 to keep SpO2>90% - inhaled bronchodilators - Medrol IV - DVT prophylaxis - Zmax for [address] Ortiz
[2016-11-26] MEDS: ATORVASTATIN CA 10 MG TABLET (FP) PO SCH (21:57)
[2016-11-27] MEDS: INSULIN SLIDING SCALE (NOVOLOG) 1 VIAL SQ SCH ×3 (06:12→17:01)
[2016-11-27] MEDS: sitaGLIPtin PHOSPHATE 50 MG TABLET PO SCH (06:12)
[2016-11-27] MEDS: metFORMIN HCL 500 MG TABLET (FP) PO SCH (06:12)
[2016-11-27] MEDS: INSULIN DETEMIR 100 UNITS/ML MDV SQ SCH (06:12)
[2016-11-27] MEDS: ALBUTEROL SO4 0.083% IH SOL 2.5 MG/3 ML VIAL.NEB. NEB SCH ×3 (06:40→21:15)
--- NOTE | 2016-11-27 09:46 | PN ---
Progress Note (short form) - Note Progress Note: Breathing feels better today. Less HAUSER on ambulating to the bathroom. Less cough. Intake & Output 11/24/16 11/25/16 11/26/16 11/27/16 23:59 23:59 23:59 23:59 Intake Total 250 1000 600 150 Output Total 1 1 Balance 250 999 599 150 Weight 181 lb 12.8 oz 183 lb Last Vital Signs Temp Pulse Resp BP Pulse Ox 98.3 F 82 20 120/61 96 11/27/16 06:21 11/27/16 06:21 11/27/16 06:21 11/27/16 06:21 11/26/16 21:00 Active Medications Albuterol Sulfate (Ventolin 0.083% Nebulizer Soln -) 1 amp NEB TIDR [facility] Last Admin: 11/27/16 06:40 Dose: 1 amp Albuterol/Ipratropium (Duoneb -) 1 amp NEB Q4H PRN PRN Reason: ASTHMA Last Admin: 11/25/16 17:44 Dose: 1 amp Amlodipine Besylate (Norvasc -) 10 mg PO DAILY [facility] Last Admin: 11/26/16 10:46 Dose: 10 mg Atorvastatin Calcium (Lipitor -) 10 mg PO HS [facility] Last Admin: 11/26/16 21:57 Dose: 10 mg Budesonide/Formoterol Fumarate (Symbicort 160/4.5mcg -) 2 puff IH BID [facility] Last Admin: 11/26/16 21:58 Dose: 2 puff Enoxaparin Sodium (Lovenox -) 40 mg SQ DAILY [facility] Last Admin: 11/26/16 10:45 Dose: 40 mg Folic Acid (Folic Acid -) 1 mg PO DAILY [facility] Last Admin: 11/26/16 10:45 Dose: 1 mg Furosemide (Lasix Injection -) 20 mg IVPUSH DAILY [facility] Last Admin: 11/26/16 10:45 Dose: 20 mg Azithromycin (Zithromax 500mg Ivpb (Pre-Docked)) 250 mls @ 250 mls/hr IVPB DAILY [facility] Last Admin: 11/26/16 10:44 Dose: 250 mls/hr Insulin Aspart (Novolog Vial Sliding Scale -) 1 vial SQ TIDAC [facility] PRN Reason: Protocol Last Admin: 11/27/16 06:12 Dose: 4 unit Insulin Detemir (Levemir Vial) 35 units SQ AM [facility] Last Admin: 11/27/16 06:12 Dose: 35 units Lisinopril (Prinivil) 20 mg PO DAILY [facility] Last Admin: 11/26/16 10:46 Dose: 20 mg Metformin HCl (Glucophage -) 500 mg PO AM [facility] Last Admin: 11/27/16 06:12 Dose: 500 mg Methylprednisolone Sodium Succinate (Solu-Medrol -) 40 mg IVPB BID [facility] Last Admin: 11/26/16 21:57 Dose: 40 mg Pantoprazole Sodium (Protonix -) 40 mg PO DAILY [facility] Last Admin: 11/26/16 10:46 Dose: 40 mg Sitagliptin Phosphate (Januvia -) 50 mg PO DAILY@0700 [facility] Last Admin: 11/27/16 06:12 Dose: 50 mg Constitutional: Yes: Awake and alert, NAD Eyes: Yes: Conjunctiva Clear, EOM Intact HENT: Yes: Atraumatic, Normocephalic Neck: Yes: Supple, Trachea Midline Cardiovascular: Yes: Regular Rate and Rhythm Respiratory: Yes: Scattered rhonchi, no wheeze ...Clubbing: No Gastrointestinal: Yes: Normal Bowel Sounds, Soft. No: Tenderness Edema: No Neurological: Yes: Alert, Oriented Labs: Laboratory Results - last 24 hr 11/26/16 11/26/16 11/27/16 12:38 16:58 06:11 POC Glucometer 229 249 240 Assessment/Plan Asthma/COPD Chronic Hypoxic Respiratory Failure on home O2 since 2011 Former smoker HTN DM Hyperlipidemia - monitor urine output, creatinine - O2 to keep SpO2>90% - inhaled bronchodilators - Medrol IV -> If she remains stable/improved can change to Prednisone in the AM - DVT prophylaxis - Zmax for [address] Ortiz
[2016-11-27] MEDS ORDERED: PT OWN MED DRAWER 7, Y5N ONE (10:56)
[2016-11-27] MEDS: FUROSEMIDE 40 MG/4 ML INJECTABLE VIAL IVPUSH SCH (10:58)
[2016-11-27] MEDS: LISINOPRIL 20 MG TABLET (FP) PO SCH (10:58)
[2016-11-27] MEDS: FOLIC ACID 1 MG TABLET (FP) PO SCH (10:58)
[2016-11-27] MEDS: amLODIPine BESYLATE 10 MG TABLET (FP) PO SCH (10:58)
[2016-11-27] MEDS: ENOXAPARIN NA (PORCINE) 40 MG/0.4 ML DISP.SYRIN SQ SCH (10:58)
[2016-11-27] MEDS: BUDESONIDE/FORMETEROL FUMARATE 160/4.5 mcg INHALER IH SCH ×2 (10:59→22:02)
[2016-11-27] MEDS: PANTOPRAZOLE 40 MG TABLET (FP) PO SCH (10:59)
[2016-11-27] MEDS: methylPREDNISolone NA SUCC 40 MG/1 ML VIAL IVPB SCH ×2 (10:59→22:02)
--- NOTE | 2016-11-27 12:39 | PN ---
Progress Note, Physician Chief Complaint: feels better no cough - Current Medication List Current Medications: Active Medications Albuterol Sulfate (Ventolin 0.083% Nebulizer Soln -) 1 amp NEB TIDR [facility] [place] Last Admin: 11/27/16 06:40 Dose: 1 amp Albuterol/Ipratropium (Duoneb -) 1 amp NEB Q4H PRN PRN Reason: ASTHMA Last Admin: 11/25/16 17:44 Dose: 1 amp Amlodipine Besylate (Norvasc -) 10 mg PO DAILY [facility] [place] Last Admin: 11/27/16 10:58 Dose: 10 mg Atorvastatin Calcium (Lipitor -) 10 mg PO HS [facility] [place] Last Admin: 11/26/16 21:57 Dose: 10 mg Budesonide/Formoterol Fumarate (Symbicort 160/4.5mcg -) 2 puff IH BID [facility] Last Admin: 11/27/16 10:59 Dose: 2 puff Enoxaparin Sodium (Lovenox -) 40 mg SQ DAILY [facility] Last Admin: 11/27/16 10:58 Dose: 40 mg Folic Acid (Folic Acid -) 1 mg PO DAILY [facility] Last Admin: 11/27/16 10:58 Dose: 1 mg Furosemide (Lasix Injection -) 20 mg IVPUSH DAILY [facility] [place] Last Admin: 11/27/16 10:58 Dose: 20 mg Insulin Aspart (Novolog Vial Sliding Scale -) 1 vial SQ TIDAC [facility] PRN Reason: Protocol Last Admin: 11/27/16 06:12 Dose: 4 unit Insulin Detemir (Levemir Vial) 35 units SQ AM [facility] [place] Last Admin: 11/27/16 06:12 Dose: 35 units Lisinopril (Prinivil) 20 mg PO DAILY [facility] Last Admin: 11/27/16 10:58 Dose: 20 mg Metformin HCl (Glucophage -) 500 mg PO AM [facility] [place] Last Admin: 11/27/16 06:12 Dose: 500 mg Methylprednisolone Sodium Succinate (Solu-Medrol -) 40 mg IVPB BID [facility] Last Admin: 11/27/16 10:59 Dose: 40 mg Pantoprazole Sodium (Protonix -) 40 mg PO DAILY [facility] Last Admin: 11/27/16 10:59 Dose: 40 mg Sitagliptin Phosphate (Januvia -) 50 mg PO DAILY@0700 [facility] Last Admin: 11/27/16 06:12 Dose: 50 mg - Objective Vital Signs: Vital Signs Temperature 98.4 F 11/27/16 10:00 Pulse Rate 100 H 11/27/16 10:00 Respiratory Rate 20 11/27/16 10:00 Blood Pressure 144/78 11/27/16 10:00 O2 Sat by Pulse Oximetry (%) 96 11/26/16 21:00 Constitutional: Yes: No Distress, Calm Cardiovascular: Yes: Regular Rate and Rhythm Respiratory: Yes: Diminished (better aeration) Gastrointestinal: Yes: Normal Bowel Sounds, Soft. 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
[2016-11-27] MEDS: ATORVASTATIN CA 10 MG TABLET (FP) PO SCH (21:57)
[2016-11-28] MEDS: ALBUTEROL SO4 0.083% IH SOL 2.5 MG/3 ML VIAL.NEB. NEB SCH ×3 (06:25→21:55)
[2016-11-28] MEDS: metFORMIN HCL 500 MG TABLET (FP) PO SCH (06:39)
[2016-11-28] MEDS: sitaGLIPtin PHOSPHATE 50 MG TABLET PO SCH (06:39)
[2016-11-28] MEDS: INSULIN DETEMIR 100 UNITS/ML MDV SQ SCH (06:39)
[2016-11-28] MEDS: INSULIN SLIDING SCALE (NOVOLOG) 1 VIAL SQ SCH ×3 (06:40→16:48)
--- NOTE | 2016-11-28 09:18 | PN ---
[id number] Medication List Current Medications: Active Medications Albuterol Sulfate (Ventolin 0.083% Nebulizer Soln -) 1 amp NEB TIDR [facility] Last Admin: 11/28/16 06:25 Dose: 1 amp Albuterol/Ipratropium (Duoneb -) 1 amp NEB Q4H PRN PRN Reason: ASTHMA Last Admin: 11/25/16 17:44 Dose: 1 amp Amlodipine Besylate (Norvasc -) 10 mg PO DAILY [facility] Last Admin: 11/27/16 10:58 Dose: 10 mg Atorvastatin Calcium (Lipitor -) 10 mg PO HS [facility] Last Admin: 11/27/16 21:57 Dose: 10 mg Budesonide/Formoterol Fumarate (Symbicort 160/4.5mcg -) 2 puff IH BID [facility] Last Admin: 11/27/16 22:02 Dose: 2 puff Enoxaparin Sodium (Lovenox -) 40 mg SQ DAILY [facility] Last Admin: 11/27/16 10:58 Dose: 40 mg Folic Acid (Folic Acid -) 1 mg PO DAILY [facility] Last Admin: 11/27/16 10:58 Dose: 1 mg Furosemide (Lasix -) 20 mg PO DAILY [facility] Insulin Aspart (Novolog Vial Sliding Scale -) 1 vial SQ TIDAC [facility] PRN Reason: Protocol Last Admin: 11/28/16 06:40 Dose: 4 unit Insulin Detemir (Levemir Vial) 35 units SQ AM [facility] Last Admin: 11/28/16 06:39 Dose: 35 units Lisinopril (Prinivil) 20 mg PO DAILY [facility] Last Admin: 11/27/16 10:58 Dose: 20 mg Metformin HCl (Glucophage -) 500 mg PO AM [facility] Last Admin: 11/28/16 06:39 Dose: 500 mg Methylprednisolone Sodium Succinate (Solu-Medrol -) 40 mg IVPB BID [facility] Last Admin: 11/27/16 22:02 Dose: 40 mg Pantoprazole Sodium (Protonix -) 40 mg PO DAILY [facility] Last Admin: 11/27/16 10:59 Dose: 40 mg Sitagliptin Phosphate (Januvia -) 50 mg PO DAILY@0700 [facility] Last Admin: 11/28/16 06:39 Dose: 50 mg - Objective Vital Signs: Vital Signs Temperature 98.0 F 11/28/16 08:44 Pulse Rate 86 11/28/16 08:44 Respiratory Rate 20 11/28/16 08:44 Blood Pressure 123/78 11/28/16 08:44 O2 Sat by Pulse Oximetry (%) 96 11/27/16 21:00 Constitutional: Yes: No Distress, Calm Cardiovascular: Yes: Regular Rate and Rhythm Respiratory: Yes: Diminished. No: Rhonchi Gastrointestinal: Yes: Normal Bowel Sounds, Soft, Abdomen, Obese. 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
[2016-11-28] MEDS ORDERED: PT OWN MED DRAWER 7, Y5N ONE (10:24)
[2016-11-28] MEDS: FUROSEMIDE 20 MG TABLET (FP) PO SCH (10:28)
[2016-11-28] MEDS: ENOXAPARIN NA (PORCINE) 40 MG/0.4 ML DISP.SYRIN SQ SCH (10:28)
[2016-11-28] MEDS: predniSONE 20 MG TABLET (UD) PO SCH ×2 (10:28→22:12)
[2016-11-28] MEDS: FOLIC ACID 1 MG TABLET (FP) PO SCH (10:28)
[2016-11-28] MEDS: LISINOPRIL 20 MG TABLET (FP) PO SCH (10:29)
[2016-11-28] MEDS: amLODIPine BESYLATE 10 MG TABLET (FP) PO SCH (10:29)
[2016-11-28] MEDS: PANTOPRAZOLE 40 MG TABLET (FP) PO SCH (10:29)
[2016-11-28] MEDS: BUDESONIDE/FORMETEROL FUMARATE 160/4.5 mcg INHALER IH SCH ×2 (10:29→22:11)
--- NOTE | 2016-11-28 10:32 | PN ---
Progress Note (short form) - Note Progress Note: Breathing feels better today. No HAUSER on ambulating to the bathroom. Less cough. Intake & Output 11/25/16 11/26/16 11/27/16 11/28/16 23:59 23:59 23:59 23:59 Intake Total 1000 600 850 Output Total 1 1 Balance 999 599 850 Weight 181 lb 12.8 oz 183 lb 181 lb 5 oz Last Vital Signs Temp Pulse Resp BP Pulse Ox 98.0 F 86 20 123/78 96 11/28/16 08:44 11/28/16 08:44 11/28/16 08:44 11/28/16 08:44 11/27/16 21:00 Active Medications Albuterol Sulfate (Ventolin 0.083% Nebulizer Soln -) 1 amp NEB TIDR [facility] Last Admin: 11/28/16 06:25 Dose: 1 amp Albuterol/Ipratropium (Duoneb -) 1 amp NEB Q4H PRN PRN Reason: ASTHMA Last Admin: 11/25/16 17:44 Dose: 1 amp Amlodipine Besylate (Norvasc -) 10 mg PO DAILY [facility] Last Admin: 11/28/16 10:29 Dose: 10 mg Atorvastatin Calcium (Lipitor -) 10 mg PO HS [facility] Last Admin: 11/27/16 21:57 Dose: 10 mg Budesonide/Formoterol Fumarate (Symbicort 160/4.5mcg -) 2 puff IH BID [facility] Last Admin: 11/28/16 10:29 Dose: 2 puff Enoxaparin Sodium (Lovenox -) 40 mg SQ DAILY [facility] Last Admin: 11/28/16 10:28 Dose: 40 mg Folic Acid (Folic Acid -) 1 mg PO DAILY [facility] Last Admin: 11/28/16 10:28 Dose: 1 mg Furosemide (Lasix -) 20 mg PO DAILY [facility] Last Admin: 11/28/16 10:28 Dose: 20 mg Insulin Aspart (Novolog Vial Sliding Scale -) 1 vial SQ TIDAC [facility] PRN Reason: Protocol Last Admin: 11/28/16 06:40 Dose: 4 unit Insulin Detemir (Levemir Vial) 35 units SQ AM [facility] Last Admin: 11/28/16 06:39 Dose: 35 units Lisinopril (Prinivil) 20 mg PO DAILY [facility] Last Admin: 11/28/16 10:29 Dose: 20 mg Metformin HCl (Glucophage -) 500 mg PO AM [facility] Last Admin: 11/28/16 06:39 Dose: 500 mg Pantoprazole Sodium (Protonix -) 40 mg PO DAILY [facility] Last Admin: 11/28/16 10:29 Dose: 40 mg Prednisone (Deltasone -) 40 mg PO BID [facility] Last Admin: 11/28/16 10:28 Dose: 40 mg Sitagliptin Phosphate (Januvia -) 50 mg PO DAILY@0700 [facility] Last Admin: 11/28/16 06:39 Dose: 50 mg Constitutional: Yes: Awake and alert, NAD Eyes: Yes: Conjunctiva Clear, EOM Intact HENT: Yes: Atraumatic, Normocephalic Neck: Yes: Supple, Trachea Midline Cardiovascular: Yes: Regular Rate and Rhythm Respiratory: Yes: Scattered rhonchi, no wheeze ...Clubbing: No Gastrointestinal: Yes: Normal Bowel Sounds, Soft. No: Tenderness Edema: No Neurological: Yes: Alert, Oriented Labs: Laboratory Results - last 24 hr 11/27/16 11/27/16 11/28/16 11:58 17:00 05:57 POC Glucometer 267 270 238 Assessment/Plan Asthma/COPD Chronic Hypoxic Respiratory Failure on home O2 since 2011 Former smoker HTN DM Hyperlipidemia - O2 to keep SpO2>90% - inhaled bronchodilators - Prednisone - DVT prophylaxis - D/C planning Dr Ortiz
[2016-11-28] MEDS: ATORVASTATIN CA 10 MG TABLET (FP) PO SCH (22:12)
[2016-11-28] MEDS ORDERED: methylPREDNISolone NA SUCC 40 MG/1 ML VIAL IVPB ONE (23:45)
[2016-11-28] MEDS ORDERED: methylPREDNISolone NA SUCC 125 MG/2 ML VIAL ONE ×2 (23:50→23:58)
[2016-11-29] MEDS: metFORMIN HCL 500 MG TABLET (FP) PO SCH (06:18)
[2016-11-29] MEDS: sitaGLIPtin PHOSPHATE 50 MG TABLET PO SCH (06:19)
[2016-11-29] MEDS: INSULIN DETEMIR 100 UNITS/ML MDV SQ SCH (06:19)
[2016-11-29] MEDS: INSULIN SLIDING SCALE (NOVOLOG) 1 VIAL SQ SCH ×3 (06:20→17:52)
[2016-11-29] MEDS: ALBUTEROL SO4 0.083% IH SOL 2.5 MG/3 ML VIAL.NEB. NEB SCH (06:48)
--- NOTE | 2016-11-29 08:19 | PN ---
Progress Note (short form) - Note Progress Note: SUBJECTIVE: Patient seen and examined. Chart reviewed. Still feels short of breath. On Venti-Mask now. Denies chest pain. Got Solumedrol last night. OBJECTIVE: Vital Signs 11/29/16 05:59 Temperature 98.4 F Pulse Rate 81 Respiratory 20 Rate Blood Pressure 128/72 Intake & Output 11/28/16 11/29/16 11/29/16 23:59 07:59 15:59 Intake Total 120 0 Balance 120 0 Weight 83.121 kg Intake: Oral 120 0 Other: Voiding Method Toilet Toilet # Unmeasured Voids Void 1 1 Bowel Movement No No Weight Measurement Method Built in [facility] Active Medications Albuterol Sulfate (Ventolin 0.083% Nebulizer Soln -) 1 amp NEB TIDR [facility] Last Admin: 11/29/16 06:48 Dose: 1 amp Albuterol/Ipratropium (Duoneb -) 1 amp NEB Q4H PRN PRN Reason: ASTHMA Last Admin: 11/25/16 17:44 Dose: 1 amp Amlodipine Besylate (Norvasc -) 10 mg PO DAILY [facility] Last Admin: 11/28/16 10:29 Dose: 10 mg Atorvastatin Calcium (Lipitor -) 10 mg PO HS [facility] Last Admin: 11/28/16 22:12 Dose: 10 mg Budesonide/Formoterol Fumarate (Symbicort 160/4.5mcg -) 2 puff IH BID [facility] Last Admin: 11/28/16 22:11 Dose: 2 puff Enoxaparin Sodium (Lovenox -) 40 mg SQ DAILY [facility] Last Admin: 11/28/16 10:28 Dose: 40 mg Folic Acid (Folic Acid -) 1 mg PO DAILY [facility] Last Admin: 11/28/16 10:28 Dose: 1 mg Furosemide (Lasix -) 20 mg PO DAILY [facility] Last Admin: 11/28/16 10:28 Dose: 20 mg Insulin Aspart (Novolog Vial Sliding Scale -) 1 vial SQ TIDAC [facility] PRN Reason: Protocol Last Admin: 11/29/16 06:20 Dose: 6 unit Insulin Detemir (Levemir Vial) 35 units SQ AM [facility] Last Admin: 11/29/16 06:19 Dose: 35 units Lisinopril (Prinivil) 20 mg PO DAILY [facility] Last Admin: 11/28/16 10:29 Dose: 20 mg Metformin HCl (Glucophage -) 500 mg PO AM [facility] Last Admin: 11/29/16 06:18 Dose: 500 mg Pantoprazole Sodium (Protonix -) 40 mg PO DAILY [facility] Last Admin: 11/28/16 10:29 Dose: 40 mg Prednisone (Deltasone -) 40 mg PO BID [facility] Last Admin: 11/28/16 22:12 Dose: 40 mg Sitagliptin Phosphate (Januvia -) 50 mg PO DAILY@0700 [facility] Last Admin: 11/29/16 06:19 Dose: 50 mg CBC, BMP 11/24/16 08:05 11/24/16 08:05 Laboratory Results - last 24 hr 11/28/16 11/28/16 11/29/16 11:46 16:46 05:57 POC Glucometer 214 350 280 PHYSICAL EXAMINATION: Constitutional: Yes: No Distress, Calm Cardiovascular: Yes: Regular Rate and Rhythm Respiratory: Yes: Diminished, No Wheezes. Gastrointestinal: Yes: Normal Bowel Sounds, Soft. No: Distention, Tenderness Edema: No Psychiatric: Yes: Alert ASSESSMENT & PLAN: - Still feeling short of breath. - Pulmonary to follow. - Continue present care. - Increase Prednisone. - Will not discharge to home today. - Discussed with Dr. Boogie also. 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
--- NOTE | 2016-11-29 10:05 | PN ---
Progress Note (short form) - Note Progress Note: PULMONARY Short of breath overnight with nonproductive cough and wheezing. CXR unchanged. Now on ventimask. Last Vital Signs Temp Pulse Resp BP Pulse Ox 98.4 F 81 20 128/72 92 L 11/29/16 05:59 11/29/16 05:59 11/29/16 05:59 11/29/16 05:59 11/28/16 21:00 Gen: anxious, mildly tachypneic at rest Heart: RRR Lung: distant breath sounds, no wheezes Abd: soft, nontender Ext: no edema CBC, BMP 11/24/16 08:05 11/24/16 08:05 Active Medications Albuterol Sulfate (Ventolin 0.083% Nebulizer Soln -) 1 amp NEB TIDR [facility] Last Admin: 11/29/16 06:48 Dose: 1 amp Albuterol/Ipratropium (Duoneb -) 1 amp NEB Q4H PRN PRN Reason: ASTHMA Last Admin: 11/25/16 17:44 Dose: 1 amp Amlodipine Besylate (Norvasc -) 10 mg PO DAILY [facility] Last Admin: 11/28/16 10:29 Dose: 10 mg Atorvastatin Calcium (Lipitor -) 10 mg PO HS [facility] Last Admin: 11/28/16 22:12 Dose: 10 mg Budesonide/Formoterol Fumarate (Symbicort 160/4.5mcg -) 2 puff IH BID [facility] Last Admin: 11/28/16 22:11 Dose: 2 puff Enoxaparin Sodium (Lovenox -) 40 mg SQ DAILY [facility] Last Admin: 11/28/16 10:28 Dose: 40 mg Folic Acid (Folic Acid -) 1 mg PO DAILY [facility] Last Admin: 11/28/16 10:28 Dose: 1 mg Furosemide (Lasix -) 20 mg PO DAILY [facility] Last Admin: 11/28/16 10:28 Dose: 20 mg Insulin Aspart (Novolog Vial Sliding Scale -) 1 vial SQ TIDAC [facility] PRN Reason: Protocol Last Admin: 11/29/16 06:20 Dose: 6 unit Insulin Detemir (Levemir Vial) 35 units SQ AM [facility] Last Admin: 11/29/16 06:19 Dose: 35 units Lisinopril (Prinivil) 20 mg PO DAILY [facility] Last Admin: 11/28/16 10:29 Dose: 20 mg Metformin HCl (Glucophage -) 500 mg PO AM [facility] Last Admin: 11/29/16 06:18 Dose: 500 mg Pantoprazole Sodium (Protonix -) 40 mg PO DAILY [facility] Last Admin: 11/28/16 10:29 Dose: 40 mg Prednisone (Deltasone -) 40 mg PO BID [facility] Last Admin: 11/28/16 22:12 Dose: 40 mg Sitagliptin Phosphate (Januvia -) 50 mg PO DAILY@0700 [facility] Last Admin: 11/29/16 06:19 Dose: 50 mg A/P Acute COPD Exacerbation Chronic Hypoxic Respiratory Failure Former smoker HTN DM Hyperlipidemia - will increase prednisone to 60mg BID - taper O2 to keep SpO2>90% - inhaled bronchodilators - DVT prophylaxis
[2016-11-29] MEDS ORDERED: ALBUTEROL SO4 0.083% IH SOL 2.5 MG/3 ML VIAL.NEB. NEB PRN (10:06)
[2016-11-29] MEDS: amLODIPine BESYLATE 10 MG TABLET (FP) PO SCH (10:38)
[2016-11-29] MEDS: PANTOPRAZOLE 40 MG TABLET (FP) PO SCH (10:38)
[2016-11-29] MEDS: BUDESONIDE/FORMETEROL FUMARATE 160/4.5 mcg INHALER IH SCH ×2 (10:38→21:29)
[2016-11-29] MEDS: FUROSEMIDE 20 MG TABLET (FP) PO SCH (10:38)
[2016-11-29] MEDS: FOLIC ACID 1 MG TABLET (FP) PO SCH (10:38)
[2016-11-29] MEDS: LISINOPRIL 20 MG TABLET (FP) PO SCH (10:38)
[2016-11-29] MEDS: ENOXAPARIN NA (PORCINE) 40 MG/0.4 ML DISP.SYRIN SQ SCH (10:38)
[2016-11-29] MEDS: predniSONE 20 MG TABLET (UD) PO SCH ×2 (10:55→21:24)
[2016-11-29] MEDS: ALBUTEROL SO4 2.5/IPRATROPIUM 0.5 INH SOL 3 ML VIAL.NEB. NEB SCH ×2 (11:25→16:40)
[2016-11-29] MEDS: ATORVASTATIN CA 10 MG TABLET (FP) PO SCH (21:25)
[2016-11-30] MEDS: metFORMIN HCL 500 MG TABLET (FP) PO SCH (06:04)
[2016-11-30] MEDS: sitaGLIPtin PHOSPHATE 50 MG TABLET PO SCH (06:04)
[2016-11-30] MEDS: INSULIN DETEMIR 100 UNITS/ML MDV SQ SCH (06:18)
[2016-11-30] MEDS: INSULIN SLIDING SCALE (NOVOLOG) 1 VIAL SQ SCH ×2 (06:23→11:47)
[2016-11-30] MEDS: ALBUTEROL SO4 2.5/IPRATROPIUM 0.5 INH SOL 3 ML VIAL.NEB. NEB SCH ×3 (09:15→13:46)
[2016-11-30] MEDS: predniSONE 20 MG TABLET (UD) PO SCH ×2 (09:19→12:03)
[2016-11-30] MEDS: PANTOPRAZOLE 40 MG TABLET (FP) PO SCH (09:20)
[2016-11-30] MEDS: FUROSEMIDE 20 MG TABLET (FP) PO SCH (09:20)
[2016-11-30] MEDS: amLODIPine BESYLATE 10 MG TABLET (FP) PO SCH (09:20)
[2016-11-30] MEDS: ENOXAPARIN NA (PORCINE) 40 MG/0.4 ML DISP.SYRIN SQ SCH (09:20)
[2016-11-30] MEDS: FOLIC ACID 1 MG TABLET (FP) PO SCH (09:20)
[2016-11-30] MEDS: BUDESONIDE/FORMETEROL FUMARATE 160/4.5 mcg INHALER IH SCH (09:20)
[2016-11-30] MEDS: LISINOPRIL 20 MG TABLET (FP) PO SCH (09:20)
--- NOTE | 2016-11-30 10:06 | PN ---
Progress Note (short form) - Note Progress Note: PULMONARY Prednisone increased yesterday with improvement in symptoms. No cough or wheezing. Last Vital Signs Temp Pulse Resp BP Pulse Ox 98.6 F 92 H 20 117/59 93 L 11/30/16 08:41 11/30/16 08:41 11/30/16 08:41 11/30/16 08:41 11/29/16 21:00 Gen: less tachypneic Heart: RRR Lung: distant breath sounds, no wheezes Abd: soft, nontender Ext: no edema CBC, BMP 11/24/16 08:05 11/24/16 08:05 Active Medications Albuterol Sulfate (Ventolin 0.083% Nebulizer Soln -) 1 amp NEB Q4H PRN PRN Reason: SHORT OF BREATH/WHEEZING Last Admin: 11/30/16 06:31 Dose: 1 amp Albuterol/Ipratropium (Duoneb -) 1 amp NEB QID [facility] Last Admin: 11/30/16 09:15 Dose: Not Given Amlodipine Besylate (Norvasc -) 10 mg PO DAILY [facility] Last Admin: 11/30/16 09:20 Dose: 10 mg Atorvastatin Calcium (Lipitor -) 10 mg PO HS [facility] Last Admin: 11/29/16 21:25 Dose: 10 mg Budesonide/Formoterol Fumarate (Symbicort 160/4.5mcg -) 2 puff IH BID [facility] Last Admin: 11/30/16 09:20 Dose: 2 puff Enoxaparin Sodium (Lovenox -) 40 mg SQ DAILY [facility] Last Admin: 11/30/16 09:20 Dose: 40 mg Folic Acid (Folic Acid -) 1 mg PO DAILY [facility] Last Admin: 11/30/16 09:20 Dose: 1 mg Furosemide (Lasix -) 20 mg PO DAILY [facility] Last Admin: 11/30/16 09:20 Dose: 20 mg Insulin Aspart (Novolog Vial Sliding Scale -) 1 vial SQ TIDAC [facility] PRN Reason: Protocol Last Admin: 11/30/16 06:23 Dose: 6 unit Insulin Detemir (Levemir Vial) 35 units SQ AM [facility] Last Admin: 11/30/16 06:18 Dose: 35 units Lisinopril (Prinivil) 20 mg PO DAILY [facility] Last Admin: 11/30/16 09:20 Dose: 20 mg Metformin HCl (Glucophage -) 500 mg PO AM [facility] Last Admin: 11/30/16 06:04 Dose: 500 mg Pantoprazole Sodium (Protonix -) 40 mg PO DAILY [facility] Last Admin: 11/30/16 09:20 Dose: 40 mg Prednisone (Deltasone -) 60 mg PO BID [facility] Last Admin: 11/30/16 09:19 Dose: 60 mg Sitagliptin Phosphate (Januvia -) 50 mg PO DAILY@0700 [facility] Last Admin: 11/30/16 06:04 Dose: 50 mg A/P Acute COPD Exacerbation Chronic Hypoxic Respiratory Failure Former smoker HTN DM Hyperlipidemia - continue prednisone 60mg BID and taper as outpt - taper O2 to keep SpO2>90% - inhaled bronchodilators - DVT prophylaxis - can discharge home from pulmonary standpoint
--- NOTE | 2016-11-30 13:31 | DS ---
Physical Examination Vital Signs: Vital Signs Temperature 98.6 F 11/30/16 08:41 Pulse Rate 92 H 11/30/16 11:41 Respiratory Rate 20 11/30/16 08:41 Blood Pressure 117/59 11/30/16 08:41 O2 Sat by Pulse Oximetry (%) 93 L 11/30/16 11:41 Constitutional: Yes: No Distress, Calm Cardiovascular: Yes: Regular Rate and Rhythm Respiratory: Yes: Diminished. No: Rales, Rhonchi, Wheezes Gastrointestinal: Yes: Normal Bowel Sounds, Soft, Abdomen, Obese. No: Distention, Tenderness Edema: No Labs: CBC, BMP 11/24/16 08:05 11/24/16 08:05 Discharge Summary Reason For Visit: EXACERBATION OF ASTHMA,INCREASED OXYGEN DEMAND Current Active Problems Asthma exacerbation (Acute) COPD (chronic obstructive pulmonary disease) (Acute) Diastolic CHF (Acute) O2 dependent (Acute) Hospital Course: Admitted for asthma exacerbation / COPD exacerbation She is on home O2 Was started on Solumedrol , nebs and LAsix Echo noted Pt was seen by Pulmonary Stable after tapering steroids Stable for dc home Condition: Good - Instructions Diet, Activity, Other Instructions: Pt advised to stay home from work for one more week- she will be seeing her PMD to be cleared to return to work . Referrals: Sami Harrington MD [Staff Physician] - Edilson Day MD [Primary Care Provider] - 1 Week Disposition: HOME - Home Medications Comprehensive Discharge Medication List: Ambulatory Orders Albuterol Sulfate [Proair Respiclick] 90 mcg IH ASDIR 11/23/16 Amlodipine Besylate [Norvasc -] 10 mg PO DAILY 11/23/16 Cholecalciferol (Vitamin D3) [Vitamin D3 -] 1,000 unit PO DAILY 11/23/16 Folic Acid - 1 mg PO DAILY 11/23/16 Ipratropium Payne 0.2 mg IH ASDIR 11/23/16 Lisinopril [Prinivil] 20 mg PO DAILY 11/23/16 Salmeterol/Fluticasone [Advair 500Mcg/50Mcg -] 1 inh PO BID 11/23/16 Simvastatin [Zocor -] 10 mg PO HS 11/23/16 Sitagliptin Phos/Metformin HCl [Janumet 50-500 mg Tablet] 1 each PO DAILY Albuterol 0.083% Nebulizer Jazmine [Ventolin 0.083% Nebulizer Soln -] 1 amp NEB TIDR amp 11/29/16 Albuterol 2.5/Ipratropium 0.5 [Duoneb -] 1 amp NEB Q4H PRN #0 amp 11/29/16 Furosemide [Lasix -] 20 mg PO DAILY tablet 11/29/16 Insulin (Levemir) [Levemir Vial] 35 units SQ AM ml 11/29/16 Insulin Sliding Scale [Novolog Vial Sliding Scale -] 1 vial SQ TIDAC units 04/09 Metformin HCl [Glucophage -] 500 mg PO AM tablet 11/29/16 Pantoprazole Sodium [Protonix -] 40 mg PO DAILY tablet.ec 11/29/16 Prednisone 10 mg PO BID #60 tablet 11/29/16 Ranitidine HCl [Zantac] 150 mg PO DAILY #30 tablet 11/29/16 Sitagliptin Phosphate [Januvia -] 50 mg PO DAILY@0700 tablet 11/29/16
--- NOTE | 2016-11-30 13:31 | PN ---
Progress Note, Physician Chief Complaint: see dc summary - Current Medication List Current Medications: Active Medications Albuterol Sulfate (Ventolin 0.083% Nebulizer Soln -) 1 amp NEB Q4H PRN PRN Reason: SHORT OF BREATH/WHEEZING Last Admin: 11/30/16 06:31 Dose: 1 amp Albuterol/Ipratropium (Duoneb -) 1 amp NEB QID [facility] Last Admin: 11/30/16 09:15 Dose: Not Given Amlodipine Besylate (Norvasc -) 10 mg PO DAILY [facility] Last Admin: 11/30/16 09:20 Dose: 10 mg Atorvastatin Calcium (Lipitor -) 10 mg PO HS [facility] Last Admin: 11/29/16 21:25 Dose: 10 mg Budesonide/Formoterol Fumarate (Symbicort 160/4.5mcg -) 2 puff IH BID [facility] Last Admin: 11/30/16 09:20 Dose: 2 puff Enoxaparin Sodium (Lovenox -) 40 mg SQ DAILY [facility] Last Admin: 11/30/16 09:20 Dose: 40 mg Folic Acid (Folic Acid -) 1 mg PO DAILY [facility] Last Admin: 11/30/16 09:20 Dose: 1 mg Furosemide (Lasix -) 20 mg PO DAILY [facility] Last Admin: 11/30/16 09:20 Dose: 20 mg Insulin Aspart (Novolog Vial Sliding Scale -) 1 vial SQ TIDAC [facility] PRN Reason: Protocol Last Admin: 11/30/16 11:47 Dose: 8 unit Insulin Detemir (Levemir Vial) 35 units SQ AM [facility] Last Admin: 11/30/16 06:18 Dose: 35 units Lisinopril (Prinivil) 20 mg PO DAILY [facility] Last Admin: 11/30/16 09:20 Dose: 20 mg Metformin HCl (Glucophage -) 500 mg PO AM [facility] Last Admin: 11/30/16 06:04 Dose: 500 mg Pantoprazole Sodium (Protonix -) 40 mg PO DAILY [facility] Last Admin: 11/30/16 09:20 Dose: 40 mg Prednisone (Deltasone -) 60 mg PO BID [facility] Last Admin: 11/30/16 09:19 Dose: 60 mg Sitagliptin Phosphate (Januvia -) 50 mg PO DAILY@0700 [facility] Last Admin: 11/30/16 06:04 Dose: 50 mg - Objective Vital Signs: Vital Signs Temperature 98.6 F 11/30/16 08:41 Pulse Rate 92 H 11/30/16 11:41 Respiratory Rate 20 11/30/16 08:41 Blood Pressure 117/59 11/30/16 08:41 O2 Sat by Pulse Oximetry (%) 93 L 11/30/16 11:41 Labs: CBC, BMP 11/24/16 08:05 11/24/16 08:05 INR, PTT INR 1.07 (0.82-1.09) 11/23/16 19:50 Problem List - Problems (1) Asthma exacerbation Code(s): J45.901 - UNSPECIFIED ASTHMA WITH (ACUTE) EXACERBATION (2) COPD (chronic obstructive pulmonary disease) Code(s): J44.9 - CHRONIC OBSTRUCTIVE PULMONARY DISEASE, UNSPECIFIED Qualifiers : COPD type: COPD with acute exacerbation Qualified Code(s): J44.1 - Chronic obstructive pulmonary disease with (acute) exacerbation (3) 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 (4) Diastolic CHF Code(s): I50.30 - UNSPECIFIED DIASTOLIC (CONGESTIVE) HEART FAILURE Qualifiers : Congestive heart failure chronicity: chronic Qualified Code(s): I50.32 - Chronic diastolic (congestive) heart failure
[2016-11-30 15:17] VITALS: BP 118/61; PULSE 106; TEMP 98.2
== END 2016-11-30 16:33 | disposition home or self-care (01) | DRG 191 ==
LOC: JER 18:23 → J8W 20:39
PROVIDERS: ADMIT Internal Medicine; ATTEND Internal Medicine
PROC: 3E0F7GC Introduction of Other Therapeutic Substance into Respiratory Tract, Via Natural or Artificial Opening (ICD-10-PCS; principal; 2016-11-23)
DX: J44.1 Chronic obstructive pulmonary disease with (acute) exacerbation (principal); J96.10 Chronic respiratory failure, unspecified whether with hypoxia or hypercapnia; I50.32 Chronic diastolic (congestive) heart failure; J45.901 Unspecified asthma with (acute) exacerbation; I10 Essential (primary) hypertension; E78.00 Pure hypercholesterolemia, unspecified; E11.9 Type 2 diabetes mellitus without complications; Z99.81 Dependence on supplemental oxygen; Z87.891 Personal history of nicotine dependence; Z85.3 Personal history of malignant neoplasm of breast; Z85.038 Personal history of other malignant neoplasm of large intestine; Z85.43 Personal history of malignant neoplasm of ovary
CPT/HCPCS: 36415; 71010-TC; 71250-TC; 80053; 81003; 81015; 82550; 83880; 84484; 85025; 85610; 93005; 93010; 93306-TC; 94150; 94640; 99283-25

== ENCOUNTER 2018-03-10 10:01 | Inpatient (IN) | payer BC, OTHER ==
[2018-03-10] MEDS ORDERED: methylPREDNISolone NA SUCC 125 MG/2 ML VIAL IVPUSH ONE (11:11)
--- NOTE | 2018-03-10 11:16 | PDOC ---
History of Present Illness <Apollo Frank - Last Filed: 03/10/18 11:31> - History of Present Illness Initial Comments: 03/10/18 11:28 The patient is a 77 year old female with a significant PMH of COPD, asthma, breast CA, colon CA, ovarian CA, HTN, hyperlipidemia, and diabetes who presents to the emergency department with worsening shortness of breath beginning approximately 1 week ago. The patients notes dyspnea with minimal exertion which is aggravated by walking and alleviated by rest. She reports she was very lightheaded this morning when she tried to walk, prompting her to see her PMD. She reports taking a dose of steroids last night which she uses as needed. The patient denies sick contacts or recent travel. The patient denies leg swelling. She denies cough. Saw her PMD Dr. Day this morning who send her to the ED. The patient denies chest pain, headache Denies fever, chills, nausea, vomit, diarrhea and constipation. Denies dysuria, frequency, urgency and hematuria. Allergies: NKA Past surgical history: Colon resection. Appendectomy. Right breast surgery. Social history: Former smoker (quit 10 years ago). No reported alcohol or drug use. PCP: Dr. Edilson Day Pulm: Dr. Garcia <Ryann Mantilla - Last Filed: 03/10/18 14:50> - General Chief Complaint: Shortness of Breath Stated Complaint: SOB (PCP SENT) Time Seen by Provider: 03/10/18 10:22 Past History <Apollo Frank - Last Filed: 03/10/18 11:31> - Past Medical History Asthma: Yes Cancer: Yes (rt breast, colon ,ovarian) COPD: Yes Diabetes: Yes HTN: Yes Hypercholesterolemia: Yes - Surgical History Abdominal Surgery: Yes (colon) Appendectomy: Yes - Suicide/Smoking/Psychosocial Hx Smoking History: Former smoker Have you smoked in the past 12 months: No If you are a former smoker, when did you quit?: 10yrs ago Information on smoking cessation initiated: No Hx Alcohol Use: No Drug/Substance Use Hx: No Substance Use Type: None <Ryann Mantilla - Last Filed: 03/10/18 14:50> - Past Medical History Allergies/Adverse Reactions: Allergies Allergy/AdvReac Type Severity Reaction Status Date / Time No Known Allergies Allergy Unverified 11/23/16 18:42 Home Medications: Ambulatory Orders Albuterol Sulfate [Proair Hfa] 8.5 gm IH DAILY 03/10/18 Amlodipine Besylate 10 mg PO DAILY 03/10/18 Fluticasone/Salmeterol [Advair 250-50 Diskus] 1 each IH DAILY 03/10/18 Folic Acid - 1 mg PO DAILY 03/10/18 Insulin Glargine,Hum.rec.anlog [Basaglar Kwikpen U-100] 45 unit SQ DAILY Lisinopril 20 mg PO DAILY 03/10/18 Montelukast Na [Singulair -] 10 mg PO HS 03/10/18 Simvastatin 10 mg PO HS 03/10/18 Sitagliptin Phos/Metformin HCl [Janumet 50-1,000 mg Tablet] 1 each PO BID Review of Systems - Review of Systems Comments:: 03/10/18 11:29 GENERAL/CONSTITUTIONAL: No fever or chills. No weakness. HEAD, EYES, EARS, NOSE AND THROAT: No change in vision. No ear pain or discharge. No sore throat. GASTROINTESTINAL: No nausea, vomiting, diarrhea or constipation. GENITOURINARY: No dysuria, frequency, or change in urination. CARDIOVASCULAR: No chest pain. RESPIRATORY: (+) Shortness of breath. No cough, wheezing, or hemoptysis. MUSCULOSKELETAL: No joint or muscle swelling or pain. No neck or back pain. SKIN: No rash NEUROLOGIC: No headache, vertigo, loss of consciousness, or change in strength/ sensation. ENDOCRINE: No increased thirst. No abnormal weight change. HEMATOLOGIC/LYMPHATIC: No anemia, easy bleeding, or history of blood clots. ALLERGIC/IMMUNOLOGIC: No hives or skin allergy. <Ryann Mantilla - Last Filed: 03/10/18 14:50> *Physical Exam - Vital Signs Last Vital Signs Temp Pulse Resp BP Pulse Ox 97.8 F 92 H 22 153/80 95 03/10/18 10:15 03/10/18 10:15 03/10/18 10:15 03/10/18 10:15 03/10/18 10:15 <Apollo Frank - Last Filed: 03/10/18 11:31> - Vital Signs Last Vital Signs Temp Pulse Resp BP Pulse Ox 97.8 F 92 H 22 153/80 95 03/10/18 10:15 03/10/18 10:15 03/10/18 10:15 03/10/18 10:15 03/10/18 10:15 - Physical Exam Comments: 03/10/18 11:29 GENERAL: Awake, alert, and fully oriented, in no acute distress HEAD: No signs of trauma EYES: PERRLA, EOMI, sclera anicteric, conjunctiva clear ENT: Auricles normal inspection, hearing grossly normal, nares patent, oropharynx clear without exudates. Moist mucosa NECK: Normal ROM, supple, no lymphadenopathy, JVD, or masses LUNGS: (+) Diminished breath sounds throughout. No wheezes, and no crackles HEART: Regular rate and rhythm, normal S1 and S2, no murmurs, rubs or gallops ABDOMEN: Soft, nontender, normoactive bowel sounds. No guarding, no rebound. No masses EXTREMITIES: Normal range of motion, no edema. No clubbing or cyanosis. No cords , erythema, or tenderness BACK: No midline spinal tenderness in cervical/thoracic/lumbar region NEUROLOGICAL: Normal speech, cranial nerves intact, negative pronator drift, 5/ 5 strength in all 4 extremities, normal sensation to light touch in all 4 extremities, normal cerebellar exam, normal gait, normal reflexes and tone SKIN: Warm, Dry, normal turgor, no rashes or lesions noted. <Ryann Mantilla - Last Filed: 03/10/18 14:50> Heart Score/ECG Review #1 03/10/18 11:29 Twelve-lead EKG was performed and reviewed by me. Sinus rhythm, rate 92. Normal axis. No ST elevations or T-wave inversions. +PAC <Ryann Mantilla - Last Filed: 03/10/18 14:50> ED Treatment Course - LABORATORY CBC & Chemistry Diagram: 03/10/18 11:32 03/10/18 11:32 - RADIOLOGY Radiology Studies Ordered: Category Date Time Status CHEST X-RAY PORTABLE* [RAD] Stat Radiology 03/10/18 11:09 Ordered <Ryann Mantilla - Last Filed: 03/10/18 14:50> Medical Decision Making - Medical Decision Making 03/10/18 11:15 77-year-old female with multiple medical problems including COPD presents the emergency department with progressive shortness of breath on exertion and lightheadness this morning. Vitals unremarkable. Exam with diminished breath sounds throughout. Differential includes COPD exacerbation versus CHF versus ACS versus pulmonary embolism. Patient has no PE risk factors and thus we'll check a d-dimer. Plan -labs -CXR -call PMD -dispo 03/10/18 11:[address] Day, pt was very dyspneic in his office, he sent her in for observation as she often syncopizes when SOB in the setting of her COPD exacerbations. 03/10/18 14:49 Pt remains SOB despite nebs and steroids, will redose albuterol. Case Discussed with Dr. Burciaga, will admit to tele obs Case discussed in detail with admitting physician including history, physical exam and ancillary studies. Admitting physician has assumed care for the patient, will follow all pending diagnostics and will complete the evaluation and treatment. <Ryann Mantilla - Last Filed: 03/10/18 14:50> *DC/Admit/Observation/Transfer - Attestations Scribe Attestion: 03/10/18 11:31 Documentation prepared by Apollo Frank, acting as hospital medical assistant for Ryann Mantilla MD. <Apollo Frank - Last Filed: 03/10/18 11:31> - Discharge Dispostion Decision to Admit order: Yes - Attestations Physician Attestion: 03/10/18 14:50 I, Dr. Ryann Mantilla MD, attest that this document has been prepared under my direction and personally reviewed by me in its entirety. I further attest, that it accurately reflects all work, treatment, procedures and medical decision -making performed by me. <Ryann Mantilla - Last Filed: 03/10/18 14:50> Diagnosis at time of Disposition: COPD (chronic obstructive pulmonary disease) - Discharge Dispostion Condition at time of disposition: Stable - Referrals Referrals: Edilson Day MD [Primary Care Provider] - - Patient Instructions - Post Discharge Activity
[2018-03-10] MEDS ORDERED: ALBUTEROL SO4 2.5/IPRATROPIUM 0.5 INH SOL 3 ML VIAL.NEB. NEB ONE ×3 (11:20→14:49)
[2018-03-10] MEDS ORDERED: methylPREDNISolone NA SUCC 125 MG/2 ML VIAL ONE (11:21)
[2018-03-10] MEDS: ALBUTEROL SO4 2.5/IPRATROPIUM 0.5 INH SOL 3 ML VIAL.NEB. NEB SCH ×4 (11:22→12:18)
[2018-03-10 11:56] LABS: HEMATOCRIT 35.5 % (32.4-45.2); HEMOGLOBIN 10.9 GM/dL (10.7-15.3); MCHC 30.8 g/dl (32.0-36.0); MEAN CELL VOLUME 68.1 fl (80-96); MEAN PLT VOLUME 9.1 fl (7.5-11.1); PLATELET COUNT 463 K/MM3 (134-434); RBC 5.22 M/mm3 (3.60-5.2); RDW 17.4 % (11.6-15.6); WHITE BLOOD COUNT 12.2 K/mm3 (4.0-10.0)
[2018-03-10 12:22] LABS: ALBUMIN 3.9 g/dl (3.4-5.0); ANION GAP 6 (8-16); BILIRUBIN,TOTAL 0.5 mg/dL (0.2-1.0); BLOOD UREA NITROGEN 18 mg/dL (7-18); CALCIUM 9.7 mg/dL (8.5-10.1); CHLORIDE 104 mmol/L (98-107); CO2 30 mmol/L (21-32); GLUCOSE,RANDOM 95 mg/dL (74-106); POTASSIUM 4.8 mmol/L (3.5-5.1); SGOT/AST 8 U/L (15-37); SGPT/ALT 12 U/L (12-78); SODIUM 140 mmol/L (136-145)
[2018-03-10 12:24] LABS: ALK PHOS 173 U/L (45-117); CREATININE 0.9 mg/dL (0.55-1.02)
[2018-03-10 12:51] LABS: URINE APPEARANCE CLEAR; URINE BILIRUBIN NEGATIVE (<2.0 mg/dL); URINE COLOR LTYELLOW; URINE GLUCOSE (UA) NEGATIVE (NEGATIVE); URINE KETONE NEGATIVE (NEGATIVE); URINE NITRITE NEGATIVE (NEGATIVE); URINE PROTEIN NEGATIVE (NEGATIVE); URINE UROBILINOGEN NEGATIVE mg/dL (0.2-1.0)
[2018-03-10 12:55] LABS: URINE LEUK ESTERASE 2+ (NEGATIVE)
[2018-03-10 12:58] LABS: EPI CELLS RARE /HPF (FEW); URINE HYALINE CAST 1 /lpf; URINE MUCUS RARE
[2018-03-10 13:19] LABS: ANISOCYTOSIS 2+; PLATELET ESTIMATE NORMAL
[2018-03-10] MEDS ORDERED: ACETAMINOPHEN 325 MG TABLET (FP) PO PRN (16:27)
--- NOTE | 2018-03-10 16:32 | HP ---
Admitting History and Physical - Primary Care Physician PCP: Edilson Day - Admission Chief Complaint: sob. History of Present Illness: The patient is a 77 year old female with a significant PMH of COPD, asthma, breast CA, colon CA, ovarian CA, HTN, hyperlipidemia, and diabetes who presents to the emergency department with worsening shortness of breath beginning approximately 1 week ago. The patients notes dyspnea with minimal exertion which is aggravated by walking and alleviated by rest. She reports she was very lightheaded this morning when she tried to walk, prompting her to see her PMD. She reports taking a dose of steroids last night which she uses as needed. The patient denies sick contacts or recent travel. The patient denies leg swelling. She denies cough. Saw her PMD Dr. Day this morning who send her to the ED. The patient denies chest pain, headache Denies fever, chills, nausea, vomit, diarrhea and constipation. Denies dysuria, frequency, urgency and hematuria. pt given nebulizer treatment / prednisone --no improvement pt given solumedrol-- being admitted for further management. Pt seen by me in er. chart reviewed pt has severe copd -- pfts 2017 - reviewed. pt is ex smoker- quit 10 yrs ago. echo - 2017- lv function. ekg - today ok. History Source: Patient Limitations to Obtaining History: No Limitations - Past Medical History Cardiovascular: Yes: HTN Pulmonary: Yes: Asthma, COPD Endocrine: Yes: Diabetes Mellitus - Smoking History Smoking history: Former smoker Have you smoked in the past 12 months: No If you are a former smoker, when did you quit?: 10yrs ago - Alcohol/Substance Use Hx Alcohol Use: No Home Medications - Allergies Allergies/Adverse Reactions: Allergies Allergy/AdvReac Type Severity Reaction Status Date / Time No Known Allergies Allergy Unverified 11/23/16 18:42 - Home Medications Home Medications: Ambulatory Orders Albuterol Sulfate [Proair Hfa] 8.5 gm IH DAILY 03/10/18 Amlodipine Besylate 10 mg PO DAILY 03/10/18 Fluticasone/Salmeterol [Advair 250-50 Diskus] 1 each IH DAILY 03/10/18 Folic Acid - 1 mg PO DAILY 03/10/18 Insulin Glargine,Hum.rec.anlog [Basaglar Kwikpen U-100] 45 unit SQ DAILY Lisinopril 20 mg PO DAILY 03/10/18 Montelukast Na [Singulair -] 10 mg PO HS 03/10/18 Simvastatin 10 mg PO HS 03/10/18 Sitagliptin Phos/Metformin HCl [Janumet 50-1,000 mg Tablet] 1 each PO BID Review of Systems - Review of Systems Constitutional: reports: Weakness Eyes: reports: No Symptoms HENT: reports: No Symptoms Neck: reports: No Symptoms Cardiovascular: reports: No Symptoms Respiratory: reports: SOB Gastrointestinal: reports: No Symptoms Genitourinary: reports: No Symptoms Neurological: reports: No Symptoms Psychiatric: reports: No Symptoms Physical Examination Vital Signs: Vital Signs Temperature 97.6 F 03/10/18 16:04 Pulse Rate 110 H 03/10/18 16:04 Respiratory Rate 20 03/10/18 16:04 Blood Pressure 131/70 03/10/18 16:04 O2 Sat by Pulse Oximetry (%) 97 03/10/18 16:04 Constitutional: Yes: No Distress, Calm Eyes: Yes: Conjunctiva Clear Neck: Yes: Supple Cardiovascular: Yes: Regular Rate and Rhythm Respiratory: Yes: Poor Air Entry, Wheezes. No: Rhonchi Gastrointestinal: Yes: Normal Bowel Sounds, Soft Edema: No Neurological: Yes: Alert Labs: CBC, BMP 03/10/18 11:32 03/10/18 11:32 Imaging - Results Chest X-ray: Report Reviewed EKG: Report Reviewed Problem List - Problems (1) COPD with acute exacerbation Code(s): J44.1 - CHRONIC OBSTRUCTIVE PULMONARY DISEASE W (ACUTE) EXACERBATION (2) COPD (chronic obstructive pulmonary disease) Code(s): J44.9 - CHRONIC OBSTRUCTIVE PULMONARY DISEASE, UNSPECIFIED Qualifiers: (3) HTN (hypertension) Code(s): I10 - ESSENTIAL (PRIMARY) HYPERTENSION (4) IDDM (insulin dependent diabetes mellitus) Code(s): E11.9 - TYPE 2 DIABETES MELLITUS WITHOUT COMPLICATIONS; 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
[2018-03-10] MEDS ORDERED: ALBUTEROL SO4 2.5/IPRATROPIUM 0.5 INH SOL 3 ML VIAL.NEB. NEB PRN (16:48)
[2018-03-10] MEDS: INSULIN SLIDING SCALE (NOVOLOG) 1 VIAL SQ SCH ×2 (17:25→21:10)
[2018-03-10] MEDS ORDERED: INSULIN (NOVOLOG) ASPART 100 UNITS/ML 10ML VIAL ONE ×2 (17:27→21:04)
[2018-03-10 20:11] VITALS: BMI 29.7
[2018-03-10] MEDS: MONTELUKAST NA 10 MG TABLET PO SCH (21:06)
[2018-03-10] MEDS: ATORVASTATIN CA 10 MG TABLET (FP) PO SCH (21:06)
[2018-03-11] MEDS: INSULIN SLIDING SCALE (NOVOLOG) 1 VIAL SQ SCH ×4 (06:32→21:50)
[2018-03-11] MEDS: INSULIN (LEVEMIR) 100 UNITS/ML UNITS SQ SCH (06:32)
[2018-03-11] MEDS: methylPREDNISolone NA SUCC 125 MG/2 ML VIAL IVPB SCH ×4 (06:33→17:12)
[2018-03-11 07:46] LABS: HEMATOCRIT 31.4 % (32.4-45.2); HEMOGLOBIN 9.9 GM/dL (10.7-15.3); MCH 21.3 pg (25.7-33.7); MCHC 31.6 g/dl (32.0-36.0); MEAN CELL VOLUME 67.4 fl (80-96); MEAN PLT VOLUME 9.4 fl (7.5-11.1); PLATELET COUNT 366 K/MM3 (134-434); RBC 4.66 M/mm3 (3.60-5.2); RDW 17.2 % (11.6-15.6); WHITE BLOOD COUNT 16.2 K/mm3 (4.0-10.0)
[2018-03-11 08:21] LABS: CHLORIDE 102 mmol/L (98-107); POTASSIUM 4.6 mmol/L (3.5-5.1); SODIUM 138 mmol/L (136-145)
--- NOTE | 2018-03-11 08:24 | PN ---
Progress Note, Physician Chief Complaint: still SOB has cough - Current Medication List Current Medications: Active Medications Acetaminophen (Tylenol -) 650 mg PO Q4H PRN PRN Reason: PAIN LEVEL 1-5 Albuterol/Ipratropium (Duoneb -) 1 amp NEB Q4H PRN PRN Reason: SHORTNESS OF BREATH Amlodipine Besylate (Norvasc -) 10 mg PO DAILY [facility] Atorvastatin Calcium (Lipitor -) 10 mg PO HS [facility] Last Admin: 03/10/18 21:06 Dose: 10 mg Budesonide/Formoterol Fumarate (Symbicort 80/4.5mcg -) 2 puff IH BID [facility] Enoxaparin Sodium (Lovenox -) 40 mg SQ DAILY [facility] Folic Acid (Folic Acid -) 1 mg PO DAILY [facility] Insulin Aspart (Novolog Vial Sliding Scale -) 1 vial SQ ACHS [facility] PRN Reason: Protocol Last Admin: 03/11/18 06:32 Dose: Not Given Insulin Detemir (Levemir Vial) 45 units SQ ACBK [facility] Last Admin: 03/11/18 06:32 Dose: 45 units Lisinopril (Prinivil) 20 mg PO DAILY [facility] Methylprednisolone Sodium Succinate (Solu-Medrol -) 60 mg IVPB Q8H-IV [facility] Last Admin: 03/11/18 06:33 Dose: 60 mg Montelukast Sodium (Singulair -) 10 mg PO HS [facility] Last Admin: 03/10/18 21:06 Dose: 10 mg Pantoprazole Sodium (Protonix -) 20 mg PO DAILY [facility] - Objective Vital Signs: Vital Signs Temperature 97.9 F 03/11/18 06:00 Pulse Rate 94 H 03/11/18 06:00 Respiratory Rate 20 03/11/18 06:00 Blood Pressure 127/81 03/11/18 06:00 O2 Sat by Pulse Oximetry (%) 96 03/11/18 02:00 Constitutional: Yes: No Distress, Calm Cardiovascular: Yes: Regular Rate and Rhythm Respiratory: Yes: Diminished Gastrointestinal: Yes: Normal Bowel Sounds, Soft. No: Palpable Mass, Tenderness Edema: No Labs: CBC, BMP 03/11/18 06:00 Problem List - Problems (1) UTI (urinary tract infection) Code(s): N39.0 - URINARY TRACT INFECTION, SITE NOT SPECIFIED (2) COPD (chronic obstructive pulmonary disease) Code(s): J44.9 - CHRONIC OBSTRUCTIVE PULMONARY DISEASE, UNSPECIFIED Qualifiers: (3) COPD with acute exacerbation Code(s): J44.1 - CHRONIC OBSTRUCTIVE PULMONARY DISEASE W (ACUTE) EXACERBATION (4) HTN (hypertension) Code(s): I10 - ESSENTIAL (PRIMARY) HYPERTENSION (5) IDDM (insulin dependent diabetes mellitus) Code(s): E11.9 - TYPE 2 DIABETES MELLITUS WITHOUT COMPLICATIONS; 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
[2018-03-11 08:33] LABS: ALBUMIN 3.4 g/dl (3.4-5.0); ALK PHOS 146 U/L (45-117); ANION GAP 8 (8-16); BILIRUBIN,TOTAL 0.3 mg/dL (0.2-1.0); BLOOD UREA NITROGEN 22 mg/dL (7-18); CALCIUM 9.2 mg/dL (8.5-10.1); CO2 28 mmol/L (21-32); CREATININE 0.8 mg/dL (0.55-1.02); GLUCOSE,RANDOM 122 mg/dL (74-106); SGOT/AST 6 U/L (15-37); SGPT/ALT 10 U/L (12-78); TOT PROT 6.9 g/dl (6.4-8.2)
[2018-03-11] MEDS ORDERED: PT OWN MED DRAWER 7, Y5N ONE (09:18)
[2018-03-11] MEDS: LISINOPRIL 20 MG TABLET (FP) PO SCH (09:45)
[2018-03-11] MEDS: FOLIC ACID 1 MG TABLET (FP) PO SCH (09:46)
[2018-03-11] MEDS: PANTOPRAZOLE 20 MG TABLET (FP) PO SCH (09:46)
[2018-03-11] MEDS: ENOXAPARIN NA (PORCINE) 40 MG/0.4 ML DISP.SYRIN SQ SCH (09:46)
[2018-03-11] MEDS: amLODIPine BESYLATE 10 MG TABLET (FP) PO SCH (09:46)
[2018-03-11] MEDS ORDERED: ALBUTEROL SO4 2.5/IPRATROPIUM 0.5 INH SOL 3 ML VIAL.NEB. NEB PRN (09:56)
[2018-03-11] MEDS ORDERED: ALBUTEROL SO4 0.083% IH SOL 2.5 MG/3 ML VIAL.NEB. NEB ONE (10:00)
[2018-03-11 10:10] LABS: PLATELET ESTIMATE NORMAL
[2018-03-11] MEDS: ALBUTEROL SO4 2.5/IPRATROPIUM 0.5 INH SOL 3 ML VIAL.NEB. NEB SCH ×4 (10:32→21:18)
--- NOTE | 2018-03-11 13:01 | CON.PULM ---
Consult Consult Specialty:: PULMONARY Referred by:: PMD Reason for Consultation:: HAUSER - History of Present Illness History of Present Illness: The patient is a 77 year old female with a significant PMH of COPD, asthma, breast CA, colon CA, ovarian CA, HTN, hyperlipidemia, and diabetes who presents to the emergency department with worsening shortness of breath beginning approximately 1 week ago. The patients notes dyspnea with minimal exertion which is aggravated by walking and alleviated by rest. She reports she was very lightheaded on morning of admission when she tried to walk, prompting her to see her PMD. She reports taking a dose of steroids last night which she uses as needed. The patient denies sick contacts or recent travel. The patient denies leg swelling. She denies cough. Saw her PMD Dr. Day yesterday who send her to the ED. The patient denies chest pain, headache, fever, chills, nausea, vomit, diarrhea and constipation.Denies dysuria, frequency, urgency and hematuria. 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 No: AFIB Pulmonary: Yes: Asthma, COPD Gastrointestinal: No: Ascites Hepatobiliary: No: Cirrhosis Renal/: No: Renal Failure Reproductive: Yes: Postmenopausal ...: No Heme/Onc: Yes: Anemia Endocrine: Yes: Diabetes Mellitus - Alcohol/Substance Use Hx Alcohol Use: No - Smoking History Smoking history: Former smoker Have you smoked in the past 12 months: No If you are a former smoker, when did you quit?: 10yrs ago - Social History Place of : [facility] History of Recent Travel: No Home Medications - Allergies Allergies/Adverse Reactions: Allergies Allergy/AdvReac Type Severity Reaction Status Date / Time No Known Allergies Allergy Unverified 11/23/16 18:42 - Home Medications Home Medications: Ambulatory Orders Albuterol Sulfate [Proair Hfa] 8.5 gm IH DAILY 03/10/18 Amlodipine Besylate 10 mg PO DAILY 03/10/18 Fluticasone/Salmeterol [Advair 250-50 Diskus] 1 each IH DAILY 03/10/18 Folic Acid - 1 mg PO DAILY 03/10/18 Insulin Glargine,Hum.rec.anlog [Basaglar Kwikpen U-100] 45 unit SQ DAILY Lisinopril 20 mg PO DAILY 03/10/18 Montelukast Na [Singulair -] 10 mg PO HS 03/10/18 Simvastatin 10 mg PO HS 03/10/18 Sitagliptin Phos/Metformin HCl [Janumet 50-1,000 mg Tablet] 1 each PO BID Spiriva Respimat 2 inh DAILY 03/10/18 Family Disease History - Family Disease History Family History: Unremarkable Review of Systems - Review of Systems Constitutional: denies: Diaphoresis, Fever, Night Sweats Eyes: denies: Blurred Vision HENT: denies: Difficult Swallowing Neck: denies: Decreased ROM Cardiovascular: reports: Shortness of Breath. denies: Chest Pain, Edema, Palpitations Respiratory: reports: Cough, Exercise Intolerance, SOB, SOB on Exertion. denies : Hemoptysis, Wheezing Gastrointestinal: denies: Abdominal Pain Genitourinary: denies: Burning Breasts: reports: No Symptoms Reported Physical Exam Vital Sings: Vital Signs Temperature 97.9 F 03/11/18 06:00 Pulse Rate 94 H 03/11/18 06:00 Respiratory Rate 20 03/11/18 06:00 Blood Pressure 127/81 03/11/18 06:00 O2 Sat by Pulse Oximetry (%) 96 03/11/18 02:00 Constitutional: Yes: Calm Eyes: Yes: EOM Intact HENT: Yes: Normocephalic Neck: Yes: Trachea Midline Cardiovascular: Yes: Regular Rate and Rhythm Respiratory: Yes: Diminished Gastrointestinal: Yes: Normal Bowel Sounds, Soft, Abdomen, Obese Edema: No Labs: CBC, BMP 03/11/18 06:00 03/11/18 06:00 Imaging - Results Chest X-ray: Report Reviewed, Image Reviewed Ultrasound: Report Reviewed Problem List - Problems (1) Breast CA Code(s): C50.919 - MALIGNANT NEOPLASM OF UNSP SITE OF UNSPECIFIED FEMALE BREAST (2) COPD (chronic obstructive pulmonary disease) Code(s): J44.9 - CHRONIC OBSTRUCTIVE PULMONARY DISEASE, UNSPECIFIED Qualifiers: (3) COPD with acute exacerbation Code(s): J44.1 - CHRONIC OBSTRUCTIVE PULMONARY DISEASE W (ACUTE) EXACERBATION (4) HTN (hypertension) Code(s): I10 - ESSENTIAL (PRIMARY) HYPERTENSION (5) IDDM (insulin dependent diabetes mellitus) Code(s): E11.9 - TYPE 2 DIABETES MELLITUS WITHOUT COMPLICATIONS; Z79.4 - YOKE SETTER (CURRENT) USE OF INSULIN (6) Asthma exacerbation Code(s): J45.901 - UNSPECIFIED ASTHMA WITH (ACUTE) EXACERBATION (7) Diastolic CHF Code(s): I50.30 - UNSPECIFIED DIASTOLIC (CONGESTIVE) HEART FAILURE Qualifiers: Qualified Code(s): I50.32 - Chronic diastolic (congestive) heart failure (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
[2018-03-11] MEDS: BUDESONIDE/FORMETEROL FUMARATE 80/4.5 mcg INHALER IH SCH ×2 (15:28→21:42)
[2018-03-11] MEDS ORDERED: INSULIN (NOVOLOG) ASPART 100 UNITS/ML 10ML VIAL ONE ×2 (17:09→21:41)
[2018-03-11] MEDS: MONTELUKAST NA 10 MG TABLET PO SCH (21:42)
[2018-03-11] MEDS: ATORVASTATIN CA 10 MG TABLET (FP) PO SCH (21:42)
[2018-03-12] MEDS: ALBUTEROL SO4 2.5/IPRATROPIUM 0.5 INH SOL 3 ML VIAL.NEB. NEB SCH ×6 (02:10→21:20)
[2018-03-12] MEDS: methylPREDNISolone NA SUCC 125 MG/2 ML VIAL IVPB SCH ×2 (02:35→09:38)
[2018-03-12] MEDS ORDERED: INSULIN (NOVOLOG) ASPART 100 UNITS/ML 10ML VIAL ONE (06:53)
[2018-03-12] MEDS: INSULIN SLIDING SCALE (NOVOLOG) 1 VIAL SQ SCH ×4 (06:55→21:12)
[2018-03-12] MEDS: INSULIN (LEVEMIR) 100 UNITS/ML UNITS SQ SCH (06:55)
--- NOTE | 2018-03-12 09:31 | PN ---
Progress Note, Physician Chief Complaint: SOB better no distress no chest heaviness - Current Medication List Current Medications: Active Medications Acetaminophen (Tylenol -) 650 mg PO Q4H PRN PRN Reason: PAIN LEVEL 1-5 Albuterol/Ipratropium (Duoneb -) 1 amp NEB Q4H [facility] Last Admin: 03/12/18 06:40 Dose: 1 amp Albuterol/Ipratropium (Duoneb -) 1 amp NEB Q6H PRN PRN Reason: SHORTNESS OF BREATH Amlodipine Besylate (Norvasc -) 10 mg PO DAILY [facility] Last Admin: 03/11/18 09:46 Dose: 10 mg Atorvastatin Calcium (Lipitor -) 10 mg PO HS [facility] Last Admin: 03/11/18 21:42 Dose: 10 mg Budesonide/Formoterol Fumarate (Symbicort 80/4.5mcg -) 2 puff IH BID [facility] Last Admin: 03/11/18 21:42 Dose: 2 puff Enoxaparin Sodium (Lovenox -) 40 mg SQ DAILY [facility] Last Admin: 03/11/18 09:46 Dose: 40 mg Folic Acid (Folic Acid -) 1 mg PO DAILY [facility] Last Admin: 03/11/18 09:46 Dose: 1 mg Levofloxacin (Levaquin 500 Mg Premixed Ivpb -) 500 mg in 100 mls @ 100 mls/hr IVPB DAILY [facility] PRN Reason: Protocol Insulin Aspart (Novolog Vial Sliding Scale -) 1 vial SQ ACHS [facility] PRN Reason: Protocol Last Admin: 03/12/18 06:55 Dose: 5 units Insulin Detemir (Levemir Vial) 45 units SQ ACBK [facility] Last Admin: 03/12/18 06:55 Dose: 45 units Lisinopril (Prinivil) 20 mg PO DAILY [facility] Last Admin: 03/11/18 09:45 Dose: 20 mg Methylprednisolone Sodium Succinate (Solu-Medrol -) 60 mg IVPB Q8H-IV [facility] Last Admin: 03/12/18 02:35 Dose: 60 mg Montelukast Sodium (Singulair -) 10 mg PO HS [facility] Last Admin: 03/11/18 21:42 Dose: 10 mg Pantoprazole Sodium (Protonix -) 20 mg PO DAILY [facility] Last Admin: 03/11/18 09:46 Dose: 20 mg - Objective Vital Signs: Vital Signs Temperature 98.1 F 03/12/18 05:31 Pulse Rate 100 H 03/12/18 05:31 Respiratory Rate 20 03/12/18 05:31 Blood Pressure 141/82 03/12/18 05:31 O2 Sat by Pulse Oximetry (%) 96 03/11/18 21:00 Constitutional: Yes: No Distress Cardiovascular: Yes: Regular Rate and Rhythm Respiratory: Yes: Diminished Gastrointestinal: Yes: Normal Bowel Sounds, Soft. No: Tenderness Edema: No Labs: CBC, BMP 03/11/18 06:00 03/11/18 06:00 Problem List - Problems (1) UTI (urinary tract infection) Code(s): N39.0 - URINARY TRACT INFECTION, SITE NOT SPECIFIED (2) COPD (chronic obstructive pulmonary disease) Code(s): J44.9 - CHRONIC OBSTRUCTIVE PULMONARY DISEASE, UNSPECIFIED Qualifiers: (3) COPD with acute exacerbation Code(s): J44.1 - CHRONIC OBSTRUCTIVE PULMONARY DISEASE W (ACUTE) EXACERBATION (4) HTN (hypertension) Code(s): I10 - ESSENTIAL (PRIMARY) HYPERTENSION (5) IDDM (insulin dependent diabetes mellitus) Code(s): E11.9 - TYPE 2 DIABETES MELLITUS WITHOUT COMPLICATIONS; Z79.4 - RESIDENTIAL (CURRENT) USE OF INSULIN Assessment/Plan PLAN continue with Solumedrol - tapering on Levaquin for UTI continue with meds Diabetic control CT chest ordered
[2018-03-12] MEDS: ENOXAPARIN NA (PORCINE) 40 MG/0.4 ML DISP.SYRIN SQ SCH (09:38)
[2018-03-12] MEDS: PANTOPRAZOLE 20 MG TABLET (FP) PO SCH (09:39)
[2018-03-12] MEDS: LISINOPRIL 20 MG TABLET (FP) PO SCH (09:39)
[2018-03-12] MEDS: BUDESONIDE/FORMETEROL FUMARATE 80/4.5 mcg INHALER IH SCH ×2 (09:39→21:12)
[2018-03-12] MEDS: FOLIC ACID 1 MG TABLET (FP) PO SCH (09:39)
[2018-03-12] MEDS: amLODIPine BESYLATE 10 MG TABLET (FP) PO SCH (09:39)
[2018-03-12] MEDS ORDERED: ALBUTEROL SO4 0.083% IH SOL 2.5 MG/3 ML VIAL.NEB. NEB PRN (14:41)
--- NOTE | 2018-03-12 14:43 | PN ---
Progress Note (short form) - Note Progress Note: PULMONARY VSS/AFEBRILE ANICTERIC DIMINISHED BREATH SOUNDS S1S2 BS+ OBESE MILD EDEMA LOWER EXT LABS/MEDS/NOTES/IMAGES REVIEWED (1) Breast CA Code(s): C50.919 - MALIGNANT NEOPLASM OF UNSP SITE OF UNSPECIFIED FEMALE BREAST (2) COPD (chronic obstructive pulmonary disease) Code(s): J44.9 - CHRONIC OBSTRUCTIVE PULMONARY DISEASE, UNSPECIFIED Qualifiers: (3) COPD with acute exacerbation Code(s): J44.1 - CHRONIC OBSTRUCTIVE PULMONARY DISEASE W (ACUTE) EXACERBATION (4) HTN (hypertension) Code(s): I10 - ESSENTIAL (PRIMARY) HYPERTENSION (5) IDDM (insulin dependent diabetes mellitus) Code(s): E11.9 - TYPE 2 DIABETES MELLITUS WITHOUT COMPLICATIONS; Z79.4 - MANAGER AGRICULTURE (CURRENT) USE OF INSULIN (6) Asthma exacerbation Code(s): J45.901 - UNSPECIFIED ASTHMA WITH (ACUTE) EXACERBATION (7) Diastolic CHF Code(s): I50.30 - UNSPECIFIED DIASTOLIC (CONGESTIVE) HEART FAILURE Qualifiers: Qualified Code(s): I50.32 - Chronic diastolic (congestive) heart failure (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 Assessment/Plan SYSTEMIC STEROIDS ARE BEING REDUCED LION/LABA/LAMA/SINGULAIR/O2 ANTIBIOTICS ON HOLD FOR NOW GYLCEMIC CONTROL DVT PROPHYLAXSIS OOB TO CHAIR/INCENTIVE ISABEL CT CHEST PENDING R MAKENNA ARTEAGA Problem List - Problems (1) Breast CA Code(s): C50.919 - MALIGNANT NEOPLASM OF UNSP SITE OF UNSPECIFIED FEMALE BREAST (2) COPD (chronic obstructive pulmonary disease) Code(s): J44.9 - CHRONIC OBSTRUCTIVE PULMONARY DISEASE, UNSPECIFIED Qualifiers: (3) COPD with acute exacerbation Code(s): J44.1 - CHRONIC OBSTRUCTIVE PULMONARY DISEASE W (ACUTE) EXACERBATION (4) HTN (hypertension) Code(s): I10 - ESSENTIAL (PRIMARY) HYPERTENSION (5) IDDM (insulin dependent diabetes mellitus) Code(s): E11.9 - TYPE 2 DIABETES MELLITUS WITHOUT COMPLICATIONS; Z79.4 - RESIDENTIAL (CURRENT) USE OF INSULIN (6) Asthma exacerbation Code(s): J45.901 - UNSPECIFIED ASTHMA WITH (ACUTE) EXACERBATION (7) Diastolic CHF Code(s): I50.30 - UNSPECIFIED DIASTOLIC (CONGESTIVE) HEART FAILURE Qualifiers: Qualified Code(s): I50.32 - Chronic diastolic (congestive) heart failure (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
[2018-03-12] MEDS: methylPREDNISolone NA SUCC 40 MG/1 ML VIAL IVPB SCH (17:23)
[2018-03-12] MEDS ORDERED: PT OWN MED DRAWER 7, Y5N ONE (20:36)
[2018-03-12] MEDS: ATORVASTATIN CA 10 MG TABLET (FP) PO SCH (21:12)
[2018-03-12] MEDS: MONTELUKAST NA 10 MG TABLET PO SCH (21:12)
[2018-03-13] MEDS: methylPREDNISolone NA SUCC 40 MG/1 ML VIAL IVPB SCH ×3 (01:16→17:14)
[2018-03-13] MEDS: ALBUTEROL SO4 2.5/IPRATROPIUM 0.5 INH SOL 3 ML VIAL.NEB. NEB SCH ×6 (01:59→21:29)
[2018-03-13] MEDS ORDERED: INSULIN (NOVOLOG) ASPART 100 UNITS/ML 10ML VIAL ONE ×2 (06:26→21:25)
[2018-03-13] MEDS: INSULIN (LEVEMIR) 100 UNITS/ML UNITS SQ SCH (06:39)
[2018-03-13] MEDS: INSULIN SLIDING SCALE (NOVOLOG) 1 VIAL SQ SCH ×4 (06:40→21:26)
[2018-03-13 08:11] LABS: HEMATOCRIT 32.2 % (32.4-45.2); MCHC 31.1 g/dl (32.0-36.0); MEAN CELL VOLUME 67.6 fl (80-96); MEAN PLT VOLUME 8.9 fl (7.5-11.1); PLATELET COUNT 426 K/MM3 (134-434); RBC 4.76 M/mm3 (3.60-5.2); WHITE BLOOD COUNT 16.9 K/mm3 (4.0-10.0)
[2018-03-13 08:43] LABS: CHLORIDE 102 mmol/L (98-107); POTASSIUM 4.4 mmol/L (3.5-5.1); SODIUM 138 mmol/L (136-145)
[2018-03-13 09:04] LABS: ALBUMIN 3.2 g/dl (3.4-5.0); ALK PHOS 133 U/L (45-117); ANION GAP 8 (8-16); BILIRUBIN,TOTAL 0.2 mg/dL (0.2-1.0); BLOOD UREA NITROGEN 34 mg/dL (7-18); CALCIUM 8.9 mg/dL (8.5-10.1); CO2 28 mmol/L (21-32); GLUCOSE,RANDOM 179 mg/dL (74-106); SGOT/AST 7 U/L (15-37); SGPT/ALT 12 U/L (12-78); TOT PROT 6.5 g/dl (6.4-8.2)
[2018-03-13] MEDS ORDERED: PT OWN MED DRAWER 7, Y5N ONE ×3 (09:17→21:20)
[2018-03-13] MEDS: FOLIC ACID 1 MG TABLET (FP) PO SCH (09:59)
[2018-03-13] MEDS: ENOXAPARIN NA (PORCINE) 40 MG/0.4 ML DISP.SYRIN SQ SCH (09:59)
[2018-03-13] MEDS: LISINOPRIL 20 MG TABLET (FP) PO SCH (09:59)
[2018-03-13] MEDS: PANTOPRAZOLE 20 MG TABLET (FP) PO SCH (09:59)
[2018-03-13] MEDS: amLODIPine BESYLATE 10 MG TABLET (FP) PO SCH (09:59)
[2018-03-13] MEDS: BUDESONIDE/FORMETEROL FUMARATE 80/4.5 mcg INHALER IH SCH ×2 (11:00→21:22)
[2018-03-13 11:04] LABS: ANISOCYTOSIS 2+; PLATELET ESTIMATE NORMAL
--- NOTE | 2018-03-13 12:40 | PN ---
Progress Note, Physician History of Present Illness: PULMONARY ALERT,STILL C/O SOB,OCC COUGH - Current Medication List Current Medications: Active Medications Acetaminophen (Tylenol -) 650 mg PO Q4H PRN PRN Reason: PAIN LEVEL 1-5 Albuterol Sulfate (Ventolin 0.083% Nebulizer Soln -) 1 amp NEB Q1H PRN PRN Reason: SHORT OF BREATH/WHEEZING Albuterol/Ipratropium (Duoneb -) 1 amp NEB Q4H [facility] Last Admin: 03/13/18 09:31 Dose: 1 amp Amlodipine Besylate (Norvasc -) 10 mg PO DAILY [facility] Last Admin: 03/13/18 09:59 Dose: 10 mg Atorvastatin Calcium (Lipitor -) 10 mg PO HS [facility] Last Admin: 03/12/18 21:12 Dose: 10 mg Budesonide/Formoterol Fumarate (Symbicort 80/4.5mcg -) 2 puff IH BID [facility] Last Admin: 03/12/18 21:12 Dose: 2 puff Enoxaparin Sodium (Lovenox -) 40 mg SQ DAILY [facility] Last Admin: 03/13/18 09:59 Dose: 40 mg Folic Acid (Folic Acid -) 1 mg PO DAILY [facility] Last Admin: 03/13/18 09:59 Dose: 1 mg Levofloxacin (Levaquin 500 Mg Premixed Ivpb -) 500 mg in 100 mls @ 100 mls/hr IVPB DAILY [facility] PRN Reason: Protocol Last Admin: 03/13/18 09:59 Dose: 100 mls/hr Insulin Aspart (Novolog Vial Sliding Scale -) 1 vial SQ ACHS [facility] PRN Reason: Protocol Last Admin: 03/13/18 11:20 Dose: 8 units Insulin Detemir (Levemir Vial) 45 units SQ ACBK [facility] Last Admin: 03/13/18 06:39 Dose: 45 units Lisinopril (Prinivil) 20 mg PO DAILY [facility] Last Admin: 03/13/18 09:59 Dose: 20 mg Methylprednisolone Sodium Succinate (Solu-Medrol -) 20 mg IVPB Q8H-IV [facility] Last Admin: 03/13/18 09:59 Dose: 20 mg Montelukast Sodium (Singulair -) 10 mg PO HS [facility] Last Admin: 03/12/18 21:12 Dose: 10 mg Pantoprazole Sodium (Protonix -) 20 mg PO DAILY [facility] Last Admin: 03/13/18 09:59 Dose: 20 mg - Objective Vital Signs: Vital Signs Temperature 98.3 F 03/13/18 06:08 Pulse Rate 95 H 03/13/18 06:08 Respiratory Rate 18 03/13/18 09:00 Blood Pressure 97/75 03/13/18 06:08 O2 Sat by Pulse Oximetry (%) 96 03/13/18 09:00 Constitutional: Yes: Well Nourished, Calm Eyes: Yes: WNL HENT: Yes: WNL Neck: Yes: WNL Cardiovascular: Yes: Regular Rate and Rhythm, S1, S2 Respiratory: Yes: Rhonchi, Wheezes (SCATTERED JH WHEEZES AND RHONCHI) Gastrointestinal: Yes: Normal Bowel Sounds, Soft Extremities: Yes: WNL Edema: No Labs: CBC, BMP 03/13/18 07:28 03/13/18 07:48 Assessment/Plan 1) Breast CA Code(s): C50.919 - MALIGNANT NEOPLASM OF UNSP SITE OF UNSPECIFIED FEMALE BREAST (2) COPD (chronic obstructive pulmonary disease) Code(s): J44.9 - CHRONIC OBSTRUCTIVE PULMONARY DISEASE, UNSPECIFIED Qualifiers: (3) COPD with acute exacerbation Code(s): J44.1 - CHRONIC OBSTRUCTIVE PULMONARY DISEASE W (ACUTE) EXACERBATION (4) HTN (hypertension) Code(s): I10 - ESSENTIAL (PRIMARY) HYPERTENSION (5) IDDM (insulin dependent diabetes mellitus) Code(s): E11.9 - TYPE 2 DIABETES MELLITUS WITHOUT COMPLICATIONS; Z79.4 - CARE HOME (CURRENT) USE OF INSULIN (6) Asthma exacerbation Code(s): J45.901 - UNSPECIFIED ASTHMA WITH (ACUTE) EXACERBATION (7) Diastolic CHF Code(s): I50.30 - UNSPECIFIED DIASTOLIC (CONGESTIVE) HEART FAILURE Qualifiers: Qualified Code(s): I50.32 - Chronic diastolic (congestive) heart failure (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 Assessment/Plan CONTINUE STEROIDS IMHALED BRONCHODILATORS GYLCEMIC CONTROL DVT PROPHYLAXSIS OOB TO CHAIR/INCENTIVE ISABEL SMITH Problem List - Problems (1) Breast CA Code(s): C50.919 - MALIGNANT NEOPLASM OF UNSP SITE OF UNSPECIFIED FEMALE BREAST (2) COPD (chronic obstructive pulmonary disease) Code(s): J44.9 - CHRONIC OBSTRUCTIVE PULMONARY DISEASE, UNSPECIFIED Qualifiers: (3) COPD with acute exacerbation Code(s): J44.1 - CHRONIC OBSTRUCTIVE PULMONARY DISEASE W (ACUTE) EXACERBATION (4) HTN (hypertension) Code(s): I10 - ESSENTIAL (PRIMARY) HYPERTENSION (5) IDDM (insulin dependent diabetes mellitus) Code(s): E11.9 - TYPE 2 DIABETES MELLITUS WITHOUT COMPLICATIONS; Z79.4 - HEMATOLOGY TECHNOLOGIST (CURRENT) USE OF INSULIN (6) Asthma exacerbation Code(s): J45.901 - UNSPECIFIED ASTHMA WITH (ACUTE) EXACERBATION (7) Diastolic CHF Code(s): I50.30 - UNSPECIFIED DIASTOLIC (CONGESTIVE) HEART FAILURE Qualifiers: Qualified Code(s): I50.32 - Chronic diastolic (congestive) heart failure (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
--- NOTE | 2018-03-13 13:28 | PN ---
Progress Note (short form) - Note Progress Note: Pt seen/ examined. Chart reviewed. Better still sob. cough + afebrile Vital Signs Temp 98.3 F 03/13/18 06:08 Pulse 95 H 03/13/18 06:08 Resp 18 03/13/18 09:00 BP 97/75 03/13/18 06:08 Pulse Ox 96 03/13/18 09:00 Intake & Output 03/12/18 03/13/18 03/13/18 23:59 11:59 23:59 Intake Total 230 Balance 230 Intake: IV 10 LH 22 03/12/2018 10 IVPB 100 Oral 120 Other: Voiding Method Toilet Toilet # Unmeasured Voids Void 1 Bowel Movement No Active Medications Acetaminophen (Tylenol -) 650 mg PO Q4H PRN PRN Reason: PAIN LEVEL 1-5 Albuterol Sulfate (Ventolin 0.083% Nebulizer Soln -) 1 amp NEB Q1H PRN PRN Reason: SHORT OF BREATH/WHEEZING Albuterol/Ipratropium (Duoneb -) 1 amp NEB Q4H [facility] Last Admin: 03/13/18 13:15 Dose: 1 amp Amlodipine Besylate (Norvasc -) 10 mg PO DAILY [facility] Last Admin: 03/13/18 09:59 Dose: 10 mg Atorvastatin Calcium (Lipitor -) 10 mg PO HS [facility] Last Admin: 03/12/18 21:12 Dose: 10 mg Budesonide/Formoterol Fumarate (Symbicort 80/4.5mcg -) 2 puff IH BID [facility] Last Admin: 03/12/18 21:12 Dose: 2 puff Enoxaparin Sodium (Lovenox -) 40 mg SQ DAILY [facility] Last Admin: 03/13/18 09:59 Dose: 40 mg Folic Acid (Folic Acid -) 1 mg PO DAILY [facility] Last Admin: 03/13/18 09:59 Dose: 1 mg Levofloxacin (Levaquin 500 Mg Premixed Ivpb -) 500 mg in 100 mls @ 100 mls/hr IVPB DAILY [facility] PRN Reason: Protocol Last Admin: 03/13/18 09:59 Dose: 100 mls/hr Insulin Aspart (Novolog Vial Sliding Scale -) 1 vial SQ ACHS [facility] PRN Reason: Protocol Last Admin: 03/13/18 11:20 Dose: 8 units Insulin Detemir (Levemir Vial) 45 units SQ ACBK [facility] Last Admin: 03/13/18 06:39 Dose: 45 units Lisinopril (Prinivil) 20 mg PO DAILY [facility] Last Admin: 03/13/18 09:59 Dose: 20 mg Methylprednisolone Sodium Succinate (Solu-Medrol -) 20 mg IVPB Q8H-IV [facility] Last Admin: 03/13/18 09:59 Dose: 20 mg Montelukast Sodium (Singulair -) 10 mg PO HS [facility] Last Admin: 03/12/18 21:12 Dose: 10 mg Pantoprazole Sodium (Protonix -) 20 mg PO DAILY [facility] Last Admin: 03/13/18 09:59 Dose: 20 mg CBC, BMP 03/13/18 07:28 03/13/18 07:48 Microbiology 03/10/18 12:29 Urine Culture - Final Urine - Urine Clean Catch Escherichia Coli Ct Chest -Reviewed - Atelectasis-- lower lobes Echo- N lv function. Physical Examination Constitutional: Yes: No Distress, Calm Eyes: Yes: Conjunctiva Clear Neck: Yes: Supple. no jvd Cardiovascular: Yes: Regular Rate and Rhythm Respiratory: Yes:scattered wheezes. Gastrointestinal: Yes: Normal Bowel Sounds, Soft Edema: No Neurological: Yes: Alert A/p Continue present care Meds reviewed Same dose of steroids oob - chair Ambulate as tolerated Incentive spirometry. Stool Softners Will follow Also discussed with today as well as Nursing staff Time spend 25 min Problem List - Problems (1) COPD with acute exacerbation Code(s): J44.1 - CHRONIC OBSTRUCTIVE PULMONARY DISEASE W (ACUTE) EXACERBATION (2) COPD (chronic obstructive pulmonary disease) Code(s): J44.9 - CHRONIC OBSTRUCTIVE PULMONARY DISEASE, UNSPECIFIED Qualifiers: (3) HTN (hypertension) Code(s): I10 - ESSENTIAL (PRIMARY) HYPERTENSION (4) IDDM (insulin dependent diabetes mellitus) Code(s): E11.9 - TYPE 2 DIABETES MELLITUS WITHOUT COMPLICATIONS; Z79.4 - SENIOR RESEARCH PROJECT MANAGER (CURRENT) USE OF INSULIN (5) Breast CA Code(s): C50.919 - MALIGNANT NEOPLASM OF UNSP SITE OF UNSPECIFIED FEMALE BREAST
[2018-03-13] MEDS: DOCUSATE SODIUM 100 MG CAPSULE (FP) PO SCH ×2 (15:33→21:22)
[2018-03-13] MEDS: ATORVASTATIN CA 10 MG TABLET (FP) PO SCH (21:22)
[2018-03-13] MEDS: MONTELUKAST NA 10 MG TABLET PO SCH (21:22)
--- NOTE | 2018-03-14 00:46 | EKG ---
Test Reason : Blood Pressure : / mmHG Vent. Rate : 092 BPM Atrial Rate : 092 BPM P-R Int : 120 ms QRS Dur : 076 ms QT Int : 352 ms P-R-T Axes : 052 019 051 degrees QTc Int : 435 ms SINUS RHYTHM WITH PREMATURE ATRIAL COMPLEXES OTHERWISE NORMAL ECG WHEN COMPARED WITH ECG OF 23-NOV-2016 19:13, PREMATURE ATRIAL COMPLEXES ARE NOW PRESENT Confirmed by DONNA BURNHAM MD ([id number]) on 03/14/2018 12:46:03 AM Referred By: Confirmed By:DONNA BURNHAM MD
[2018-03-14] MEDS: ALBUTEROL SO4 2.5/IPRATROPIUM 0.5 INH SOL 3 ML VIAL.NEB. NEB SCH ×6 (02:00→21:42)
[2018-03-14] MEDS: methylPREDNISolone NA SUCC 40 MG/1 ML VIAL IVPB SCH ×3 (02:13→17:32)
[2018-03-14] MEDS: DOCUSATE SODIUM 100 MG CAPSULE (FP) PO SCH ×3 (06:19→22:58)
[2018-03-14] MEDS: INSULIN SLIDING SCALE (NOVOLOG) 1 VIAL SQ SCH ×4 (06:21→22:58)
[2018-03-14] MEDS: INSULIN (LEVEMIR) 100 UNITS/ML UNITS SQ SCH (06:21)
[2018-03-14] MEDS ORDERED: INSULIN (NOVOLOG) ASPART 100 UNITS/ML 10ML VIAL ONE ×2 (06:48→11:02)
[2018-03-14] MEDS ORDERED: PT OWN MED DRAWER 7, Y5N ONE ×3 (08:55→23:06)
[2018-03-14] MEDS: amLODIPine BESYLATE 10 MG TABLET (FP) PO SCH (10:38)
[2018-03-14] MEDS: LISINOPRIL 20 MG TABLET (FP) PO SCH (10:38)
[2018-03-14] MEDS: PANTOPRAZOLE 20 MG TABLET (FP) PO SCH (10:38)
[2018-03-14] MEDS: ENOXAPARIN NA (PORCINE) 40 MG/0.4 ML DISP.SYRIN SQ SCH (10:38)
[2018-03-14] MEDS: BUDESONIDE/FORMETEROL FUMARATE 80/4.5 mcg INHALER IH SCH ×2 (10:38→22:57)
[2018-03-14] MEDS: FOLIC ACID 1 MG TABLET (FP) PO SCH (10:38)
--- NOTE | 2018-03-14 11:14 | PN ---
Progress Note, Physician History of Present Illness: PULMONARY ALERT,FEELING BETTER,LESS DYSPNEIC - Current Medication List Current Medications: Active Medications Acetaminophen (Tylenol -) 650 mg PO Q4H PRN PRN Reason: PAIN LEVEL 1-5 Albuterol Sulfate (Ventolin 0.083% Nebulizer Soln -) 1 amp NEB Q1H PRN PRN Reason: SHORT OF BREATH/WHEEZING Albuterol/Ipratropium (Duoneb -) 1 amp NEB Q4H [facility] Last Admin: 03/14/18 09:11 Dose: 1 amp Amlodipine Besylate (Norvasc -) 10 mg PO DAILY [facility] Last Admin: 03/14/18 10:38 Dose: 10 mg Atorvastatin Calcium (Lipitor -) 10 mg PO HS [facility] Last Admin: 03/13/18 21:22 Dose: 10 mg Budesonide/Formoterol Fumarate (Symbicort 80/4.5mcg -) 2 puff IH BID [facility] Last Admin: 03/14/18 10:38 Dose: 2 puff Docusate Sodium (Colace -) 100 mg PO TID [facility] Last Admin: 03/14/18 06:19 Dose: 100 mg Enoxaparin Sodium (Lovenox -) 40 mg SQ DAILY [facility] Last Admin: 03/14/18 10:38 Dose: 40 mg Folic Acid (Folic Acid -) 1 mg PO DAILY [facility] Last Admin: 03/14/18 10:38 Dose: 1 mg Levofloxacin (Levaquin 500 Mg Premixed Ivpb -) 500 mg in 100 mls @ 100 mls/hr IVPB DAILY [facility] PRN Reason: Protocol Last Admin: 03/14/18 10:39 Dose: 100 mls/hr Insulin Aspart (Novolog Vial Sliding Scale -) 1 vial SQ ACHS [facility] PRN Reason: Protocol Last Admin: 03/14/18 11:07 Dose: 8 units Insulin Detemir (Levemir Vial) 45 units SQ ACBK [facility] Last Admin: 03/14/18 06:21 Dose: 45 units Lisinopril (Prinivil) 20 mg PO DAILY [facility] Last Admin: 03/14/18 10:38 Dose: 20 mg Methylprednisolone Sodium Succinate (Solu-Medrol -) 20 mg IVPB Q8H-IV [facility] Last Admin: 03/14/18 10:36 Dose: 20 mg Montelukast Sodium (Singulair -) 10 mg PO HS [facility] Last Admin: 03/13/18 21:22 Dose: 10 mg Pantoprazole Sodium (Protonix -) 20 mg PO DAILY [facility] Last Admin: 03/14/18 10:38 Dose: 20 mg - Objective Vital Signs: Vital Signs Temperature 98.4 F 03/14/18 06:00 Pulse Rate 91 H 03/14/18 06:00 Respiratory Rate 20 03/14/18 06:00 Blood Pressure 134/74 03/14/18 06:00 O2 Sat by Pulse Oximetry (%) 97 03/13/18 21:00 Constitutional: Yes: Well Nourished, Calm Eyes: Yes: WNL HENT: Yes: WNL Neck: Yes: Supple Cardiovascular: Yes: Regular Rate and Rhythm, S1, S2 Respiratory: Yes: Diminished Gastrointestinal: Yes: Normal Bowel Sounds, Soft Extremities: Yes: WNL Edema: No Labs: Assessment/Plan 1) Breast CA Code(s): C50.919 - MALIGNANT NEOPLASM OF UNSP SITE OF UNSPECIFIED FEMALE BREAST (2) COPD (chronic obstructive pulmonary disease) Code(s): J44.9 - CHRONIC OBSTRUCTIVE PULMONARY DISEASE, UNSPECIFIED Qualifiers: (3) COPD with acute exacerbation Code(s): J44.1 - CHRONIC OBSTRUCTIVE PULMONARY DISEASE W (ACUTE) EXACERBATION (4) HTN (hypertension) Code(s): I10 - ESSENTIAL (PRIMARY) HYPERTENSION (5) IDDM (insulin dependent diabetes mellitus) Code(s): E11.9 - TYPE 2 DIABETES MELLITUS WITHOUT COMPLICATIONS; Z79.4 - BATTERY MECHANIC (CURRENT) USE OF INSULIN (6) Asthma exacerbation Code(s): J45.901 - UNSPECIFIED ASTHMA WITH (ACUTE) EXACERBATION (7) Diastolic CHF Code(s): I50.30 - UNSPECIFIED DIASTOLIC (CONGESTIVE) HEART FAILURE Qualifiers: Qualified Code(s): I50.32 - Chronic diastolic (congestive) heart failure (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 Assessment/Plan STEROIDS INHALED BRONCHODILATORS GYLCEMIC CONTROL DVT PROPHYLAXSIS OOB TO CHAIR/INCENTIVE ISABEL DR MSITH Problem List - Problems (1) Breast CA Code(s): C50.919 - MALIGNANT NEOPLASM OF UNSP SITE OF UNSPECIFIED FEMALE BREAST (2) COPD (chronic obstructive pulmonary disease) Code(s): J44.9 - CHRONIC OBSTRUCTIVE PULMONARY DISEASE, UNSPECIFIED Qualifiers: (3) COPD with acute exacerbation Code(s): J44.1 - CHRONIC OBSTRUCTIVE PULMONARY DISEASE W (ACUTE) EXACERBATION (4) HTN (hypertension) Code(s): I10 - ESSENTIAL (PRIMARY) HYPERTENSION (5) IDDM (insulin dependent diabetes mellitus) Code(s): E11.9 - TYPE 2 DIABETES MELLITUS WITHOUT COMPLICATIONS; Z79.4 - INTERMEDIATE (CURRENT) USE OF INSULIN (6) Asthma exacerbation Code(s): J45.901 - UNSPECIFIED ASTHMA WITH (ACUTE) EXACERBATION (7) Diastolic CHF Code(s): I50.30 - UNSPECIFIED DIASTOLIC (CONGESTIVE) HEART FAILURE Qualifiers: Qualified Code(s): I50.32 - Chronic diastolic (congestive) heart failure (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
--- NOTE | 2018-03-14 12:18 | PN ---
Progress Note, Physician Chief Complaint: SOB better no distress no chest heaviness - Current Medication List Current Medications: Active Medications Acetaminophen (Tylenol -) 650 mg PO Q4H PRN PRN Reason: PAIN LEVEL 1-5 Albuterol Sulfate (Ventolin 0.083% Nebulizer Soln -) 1 amp NEB Q1H PRN PRN Reason: SHORT OF BREATH/WHEEZING Albuterol/Ipratropium (Duoneb -) 1 amp NEB Q4H [facility] Last Admin: 03/14/18 09:11 Dose: 1 amp Amlodipine Besylate (Norvasc -) 10 mg PO DAILY [facility] Last Admin: 03/14/18 10:38 Dose: 10 mg Atorvastatin Calcium (Lipitor -) 10 mg PO HS [facility] Last Admin: 03/13/18 21:22 Dose: 10 mg Budesonide/Formoterol Fumarate (Symbicort 80/4.5mcg -) 2 puff IH BID [facility] Last Admin: 03/14/18 10:38 Dose: 2 puff Docusate Sodium (Colace -) 100 mg PO TID [facility] Last Admin: 03/14/18 06:19 Dose: 100 mg Enoxaparin Sodium (Lovenox -) 40 mg SQ DAILY [facility] Last Admin: 03/14/18 10:38 Dose: 40 mg Folic Acid (Folic Acid -) 1 mg PO DAILY [facility] Last Admin: 03/14/18 10:38 Dose: 1 mg Levofloxacin (Levaquin 500 Mg Premixed Ivpb -) 500 mg in 100 mls @ 100 mls/hr IVPB DAILY [facility] PRN Reason: Protocol Last Admin: 03/14/18 10:39 Dose: 100 mls/hr Insulin Aspart (Novolog Vial Sliding Scale -) 1 vial SQ ACHS [facility] PRN Reason: Protocol Last Admin: 03/14/18 11:07 Dose: 8 units Insulin Detemir (Levemir Vial) 45 units SQ ACBK [facility] Last Admin: 03/14/18 06:21 Dose: 45 units Lisinopril (Prinivil) 20 mg PO DAILY [facility] Last Admin: 03/14/18 10:38 Dose: 20 mg Methylprednisolone Sodium Succinate (Solu-Medrol -) 20 mg IVPB Q8H-IV [facility] Last Admin: 03/14/18 10:36 Dose: 20 mg Montelukast Sodium (Singulair -) 10 mg PO HS [facility] Last Admin: 03/13/18 21:22 Dose: 10 mg Pantoprazole Sodium (Protonix -) 20 mg PO DAILY [facility] Last Admin: 03/14/18 10:38 Dose: 20 mg - Objective Vital Signs: Vital Signs Temperature 98.4 F 03/14/18 06:00 Pulse Rate 91 H 03/14/18 06:00 Respiratory Rate 20 03/14/18 06:00 Blood Pressure 134/74 03/14/18 06:00 O2 Sat by Pulse Oximetry (%) 97 03/13/18 21:00 Constitutional: Yes: No Distress, Calm Cardiovascular: Yes: Regular Rate and Rhythm Respiratory: Yes: Diminished. No: Rhonchi Gastrointestinal: Yes: Normal Bowel Sounds, Soft. No: Tenderness Edema: No Labs: CBC, BMP 03/13/18 07:28 03/13/18 07:48 Problem List - Problems (1) UTI (urinary tract infection) Code(s): N39.0 - URINARY TRACT INFECTION, SITE NOT SPECIFIED (2) COPD (chronic obstructive pulmonary disease) Code(s): J44.9 - CHRONIC OBSTRUCTIVE PULMONARY DISEASE, UNSPECIFIED Qualifiers: (3) COPD with acute exacerbation Code(s): J44.1 - CHRONIC OBSTRUCTIVE PULMONARY DISEASE W (ACUTE) EXACERBATION (4) HTN (hypertension) Code(s): I10 - ESSENTIAL (PRIMARY) HYPERTENSION (5) IDDM (insulin dependent diabetes mellitus) Code(s): E11.9 - TYPE 2 DIABETES MELLITUS WITHOUT COMPLICATIONS; Z79.4 - NURSING HOME (CURRENT) USE OF INSULIN Assessment/Plan PLAN continue with Solumedrol - tapering on Levaquin for UTI continue with meds Diabetic control CT chest -- spoke with pt incentive spirometry
[2018-03-14] MEDS: MONTELUKAST NA 10 MG TABLET PO SCH (22:58)
[2018-03-14] MEDS: ATORVASTATIN CA 10 MG TABLET (FP) PO SCH (22:58)
[2018-03-15] MEDS: ALBUTEROL SO4 2.5/IPRATROPIUM 0.5 INH SOL 3 ML VIAL.NEB. NEB SCH ×6 (02:19→21:40)
[2018-03-15] MEDS: methylPREDNISolone NA SUCC 40 MG/1 ML VIAL IVPB SCH ×3 (02:53→17:41)
[2018-03-15] MEDS: INSULIN SLIDING SCALE (NOVOLOG) 1 VIAL SQ SCH ×4 (06:51→22:24)
[2018-03-15] MEDS: DOCUSATE SODIUM 100 MG CAPSULE (FP) PO SCH ×3 (06:51→22:25)
[2018-03-15] MEDS: INSULIN (LEVEMIR) 100 UNITS/ML UNITS SQ SCH (06:52)
[2018-03-15] MEDS ORDERED: PT OWN MED DRAWER 7, Y5N ONE ×2 (08:42→22:14)
[2018-03-15] MEDS: PANTOPRAZOLE 20 MG TABLET (FP) PO SCH (09:02)
[2018-03-15] MEDS: LISINOPRIL 20 MG TABLET (FP) PO SCH (09:02)
[2018-03-15] MEDS: amLODIPine BESYLATE 10 MG TABLET (FP) PO SCH (09:02)
[2018-03-15] MEDS: FOLIC ACID 1 MG TABLET (FP) PO SCH (09:02)
[2018-03-15] MEDS: BUDESONIDE/FORMETEROL FUMARATE 80/4.5 mcg INHALER IH SCH ×2 (09:03→22:25)
[2018-03-15] MEDS: ENOXAPARIN NA (PORCINE) 40 MG/0.4 ML DISP.SYRIN SQ SCH (09:03)
--- NOTE | 2018-03-15 11:09 | PN ---
Progress Note, Physician History of Present Illness: pulmonary alert,oob-chair,dyspnea improving - Current Medication List Current Medications: Active Medications Acetaminophen (Tylenol -) 650 mg PO Q4H PRN PRN Reason: PAIN LEVEL 1-5 Albuterol Sulfate (Ventolin 0.083% Nebulizer Soln -) 1 amp NEB Q1H PRN PRN Reason: SHORT OF BREATH/WHEEZING Albuterol/Ipratropium (Duoneb -) 1 amp NEB Q4H [facility] Last Admin: 03/15/18 09:27 Dose: 1 amp Amlodipine Besylate (Norvasc -) 10 mg PO DAILY [facility] Last Admin: 03/15/18 09:02 Dose: 10 mg Atorvastatin Calcium (Lipitor -) 10 mg PO HS [facility] Last Admin: 03/14/18 22:58 Dose: 10 mg Budesonide/Formoterol Fumarate (Symbicort 80/4.5mcg -) 2 puff IH BID [facility] Last Admin: 03/15/18 09:03 Dose: 2 puff Docusate Sodium (Colace -) 100 mg PO TID [facility] Last Admin: 03/15/18 06:51 Dose: 100 mg Enoxaparin Sodium (Lovenox -) 40 mg SQ DAILY [facility] Last Admin: 03/15/18 09:03 Dose: 40 mg Folic Acid (Folic Acid -) 1 mg PO DAILY [facility] Last Admin: 03/15/18 09:02 Dose: 1 mg Levofloxacin (Levaquin 500 Mg Premixed Ivpb -) 500 mg in 100 mls @ 100 mls/hr IVPB DAILY [facility]; Protocol Last Admin: 03/15/18 09:03 Dose: 100 mls/hr Insulin Aspart (Novolog Vial Sliding Scale -) 1 vial SQ ACHS [facility]; Protocol Last Admin: 03/15/18 06:51 Dose: 3 units Insulin Detemir (Levemir Vial) 45 units SQ ACBK [facility] Last Admin: 03/15/18 06:52 Dose: 45 units Lisinopril (Prinivil) 20 mg PO DAILY [facility] Last Admin: 03/15/18 09:02 Dose: 20 mg Methylprednisolone Sodium Succinate (Solu-Medrol -) 20 mg IVPB Q8H-IV [facility] Last Admin: 03/15/18 09:03 Dose: 20 mg Montelukast Sodium (Singulair -) 10 mg PO HS [facility] Last Admin: 03/14/18 22:58 Dose: 10 mg Pantoprazole Sodium (Protonix -) 20 mg PO DAILY [facility] Last Admin: 03/15/18 09:02 Dose: 20 mg - Objective Vital Signs: Vital Signs Temperature 98.8 F 03/15/18 08:48 Pulse Rate 93 H 03/15/18 08:48 Respiratory Rate 18 03/15/18 08:48 Blood Pressure 129/59 03/15/18 08:48 O2 Sat by Pulse Oximetry (%) 98 03/14/18 21:00 Constitutional: Yes: Well Nourished, Calm Eyes: Yes: WNL HENT: Yes: WNL Neck: Yes: WNL Cardiovascular: Yes: Regular Rate and Rhythm, S1, S2 Respiratory: Yes: Rales (bibasialr rales) Gastrointestinal: Yes: Normal Bowel Sounds, Soft Extremities: Yes: WNL Edema: No Labs: Assessment/Plan 1) Breast CA Code(s): C50.919 - MALIGNANT NEOPLASM OF UNSP SITE OF UNSPECIFIED FEMALE BREAST (2) COPD (chronic obstructive pulmonary disease) Code(s): J44.9 - CHRONIC OBSTRUCTIVE PULMONARY DISEASE, UNSPECIFIED Qualifiers: (3) COPD with acute exacerbation Code(s): J44.1 - CHRONIC OBSTRUCTIVE PULMONARY DISEASE W (ACUTE) EXACERBATION (4) HTN (hypertension) Code(s): I10 - ESSENTIAL (PRIMARY) HYPERTENSION (5) IDDM (insulin dependent diabetes mellitus) Code(s): E11.9 - TYPE 2 DIABETES MELLITUS WITHOUT COMPLICATIONS; Z79.4 - SHELTER (CURRENT) USE OF INSULIN (6) Asthma exacerbation Code(s): J45.901 - UNSPECIFIED ASTHMA WITH (ACUTE) EXACERBATION (7) Diastolic CHF Code(s): I50.30 - UNSPECIFIED DIASTOLIC (CONGESTIVE) HEART FAILURE Qualifiers: Qualified Code(s): I50.32 - Chronic diastolic (congestive) heart failure (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 Assessment/Plan STEROID TAPER INHALED BRONCHODILATORS GYLCEMIC CONTROL DVT PROPHYLAXSIS OOB TO CHAIR INCENTIVE SPIROMETRY DR SMITH Problem List - Problems (1) Breast CA Code(s): C50.919 - MALIGNANT NEOPLASM OF UNSP SITE OF UNSPECIFIED FEMALE BREAST (2) COPD (chronic obstructive pulmonary disease) Code(s): J44.9 - CHRONIC OBSTRUCTIVE PULMONARY DISEASE, UNSPECIFIED Qualifiers: (3) COPD with acute exacerbation Code(s): J44.1 - CHRONIC OBSTRUCTIVE PULMONARY DISEASE W (ACUTE) EXACERBATION (4) HTN (hypertension) Code(s): I10 - ESSENTIAL (PRIMARY) HYPERTENSION (5) IDDM (insulin dependent diabetes mellitus) Code(s): E11.9 - TYPE 2 DIABETES MELLITUS WITHOUT COMPLICATIONS; Z79.4 - SHELTER (CURRENT) USE OF INSULIN (6) Asthma exacerbation Code(s): J45.901 - UNSPECIFIED ASTHMA WITH (ACUTE) EXACERBATION (7) Diastolic CHF Code(s): I50.30 - UNSPECIFIED DIASTOLIC (CONGESTIVE) HEART FAILURE Qualifiers: Qualified Code(s): I50.32 - Chronic diastolic (congestive) heart failure (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
--- NOTE | 2018-03-15 13:12 | PN ---
Progress Note, Physician Chief Complaint: FEELING BETTER no distress - Current Medication List Current Medications: Active Medications Acetaminophen (Tylenol -) 650 mg PO Q4H PRN PRN Reason: PAIN LEVEL 1-5 Albuterol Sulfate (Ventolin 0.083% Nebulizer Soln -) 1 amp NEB Q1H PRN PRN Reason: SHORT OF BREATH/WHEEZING Albuterol/Ipratropium (Duoneb -) 1 amp NEB Q4H [facility] Last Admin: 03/15/18 09:27 Dose: 1 amp Amlodipine Besylate (Norvasc -) 10 mg PO DAILY [facility] Last Admin: 03/15/18 09:02 Dose: 10 mg Atorvastatin Calcium (Lipitor -) 10 mg PO HS [facility] Last Admin: 03/14/18 22:58 Dose: 10 mg Budesonide/Formoterol Fumarate (Symbicort 80/4.5mcg -) 2 puff IH BID [facility] Last Admin: 03/15/18 09:03 Dose: 2 puff Docusate Sodium (Colace -) 100 mg PO TID [facility] Last Admin: 03/15/18 06:51 Dose: 100 mg Enoxaparin Sodium (Lovenox -) 40 mg SQ DAILY [facility] Last Admin: 03/15/18 09:03 Dose: 40 mg Folic Acid (Folic Acid -) 1 mg PO DAILY [facility] Last Admin: 03/15/18 09:02 Dose: 1 mg Levofloxacin (Levaquin 500 Mg Premixed Ivpb -) 500 mg in 100 mls @ 100 mls/hr IVPB DAILY [facility]; Protocol Last Admin: 03/15/18 09:03 Dose: 100 mls/hr Insulin Aspart (Novolog Vial Sliding Scale -) 1 vial SQ ACHS [facility]; Protocol Last Admin: 03/15/18 12:16 Dose: 8 units Insulin Detemir (Levemir Vial) 45 units SQ ACBK [facility] Last Admin: 03/15/18 06:52 Dose: 45 units Lisinopril (Prinivil) 20 mg PO DAILY [facility] Last Admin: 03/15/18 09:02 Dose: 20 mg Methylprednisolone Sodium Succinate (Solu-Medrol -) 20 mg IVPB Q8H-IV [facility] Stop: 03/15/18 23:00 Last Admin: 03/15/18 09:03 Dose: 20 mg Montelukast Sodium (Singulair -) 10 mg PO HS [facility] Last Admin: 03/14/18 22:58 Dose: 10 mg Pantoprazole Sodium (Protonix -) 20 mg PO DAILY [facility] Last Admin: 03/15/18 09:02 Dose: 20 mg Prednisone (Deltasone -) 40 mg PO DAILY [facility] - Objective Vital Signs: Vital Signs Temperature 98.8 F 03/15/18 08:48 Pulse Rate 93 H 03/15/18 08:48 Respiratory Rate 18 03/15/18 08:48 Blood Pressure 129/59 03/15/18 08:48 O2 Sat by Pulse Oximetry (%) 98 03/14/18 21:00 Constitutional: Yes: No Distress, Calm Cardiovascular: Yes: Regular Rate and Rhythm Respiratory: Yes: Diminished Gastrointestinal: Yes: Normal Bowel Sounds, Soft. No: Tenderness Edema: No Labs: CBC, BMP 03/13/18 07:28 03/13/18 07:48 Problem List - Problems (1) UTI (urinary tract infection) Code(s): N39.0 - URINARY TRACT INFECTION, SITE NOT SPECIFIED (2) COPD (chronic obstructive pulmonary disease) Code(s): J44.9 - CHRONIC OBSTRUCTIVE PULMONARY DISEASE, UNSPECIFIED Qualifiers: (3) COPD with acute exacerbation Code(s): J44.1 - CHRONIC OBSTRUCTIVE PULMONARY DISEASE W (ACUTE) EXACERBATION (4) HTN (hypertension) Code(s): I10 - ESSENTIAL (PRIMARY) HYPERTENSION (5) IDDM (insulin dependent diabetes mellitus) Code(s): E11.9 - TYPE 2 DIABETES MELLITUS WITHOUT COMPLICATIONS; Z79.4 - [facility] (CURRENT) USE OF INSULIN Assessment/Plan PLAN tapering steroids on Levaquin for UTI continue with meds Diabetic control CT chest -- spoke with pt incentive spirometry
[2018-03-15] MEDS: MONTELUKAST NA 10 MG TABLET PO SCH (22:25)
[2018-03-15] MEDS: ATORVASTATIN CA 10 MG TABLET (FP) PO SCH (22:25)
[2018-03-16] MEDS: ALBUTEROL SO4 2.5/IPRATROPIUM 0.5 INH SOL 3 ML VIAL.NEB. NEB SCH ×4 (02:05→21:28)
[2018-03-16] MEDS: INSULIN SLIDING SCALE (NOVOLOG) 1 VIAL SQ SCH ×4 (06:34→22:26)
[2018-03-16] MEDS: INSULIN (LEVEMIR) 100 UNITS/ML UNITS SQ SCH (06:34)
[2018-03-16] MEDS: DOCUSATE SODIUM 100 MG CAPSULE (FP) PO SCH ×3 (06:34→22:26)
[2018-03-16] MEDS: amLODIPine BESYLATE 10 MG TABLET (FP) PO SCH (10:19)
[2018-03-16] MEDS: BUDESONIDE/FORMETEROL FUMARATE 80/4.5 mcg INHALER IH SCH ×2 (10:19→22:27)
[2018-03-16] MEDS: PANTOPRAZOLE 20 MG TABLET (FP) PO SCH (10:19)
[2018-03-16] MEDS: predniSONE 20 MG TABLET (UD) PO SCH (10:19)
[2018-03-16] MEDS: FOLIC ACID 1 MG TABLET (FP) PO SCH (10:19)
[2018-03-16] MEDS: LISINOPRIL 20 MG TABLET (FP) PO SCH (10:19)
[2018-03-16] MEDS: ENOXAPARIN NA (PORCINE) 40 MG/0.4 ML DISP.SYRIN SQ SCH (10:20)
--- NOTE | 2018-03-16 12:36 | PN ---
Progress Note, Physician Chief Complaint: was SOB last night- feels very tired today cough+ - Current Medication List Current Medications: Active Medications Acetaminophen (Tylenol -) 650 mg PO Q4H PRN PRN Reason: PAIN LEVEL 1-5 Albuterol Sulfate (Ventolin 0.083% Nebulizer Soln -) 1 amp NEB Q1H PRN PRN Reason: SHORT OF BREATH/WHEEZING Amlodipine Besylate (Norvasc -) 10 mg PO DAILY REPLACED BY [facility] Last Admin: 03/16/18 10:19 Dose: 10 mg Atorvastatin Calcium (Lipitor -) 10 mg PO HS REPLACED BY [facility] Last Admin: 03/15/18 22:25 Dose: 10 mg Budesonide/Formoterol Fumarate (Symbicort 80/4.5mcg -) 2 puff IH BID REPLACED BY [facility] Last Admin: 03/16/18 10:19 Dose: 2 puff Docusate Sodium (Colace -) 100 mg PO TID REPLACED BY [facility] Last Admin: 03/16/18 06:34 Dose: 100 mg Enoxaparin Sodium (Lovenox -) 40 mg SQ DAILY REPLACED BY [facility] Last Admin: 03/16/18 10:20 Dose: 40 mg Folic Acid (Folic Acid -) 1 mg PO DAILY REPLACED BY [facility] Last Admin: 03/16/18 10:19 Dose: 1 mg Levofloxacin (Levaquin 500 Mg Premixed Ivpb -) 500 mg in 100 mls @ 100 mls/hr IVPB DAILY REPLACED BY [facility]; Protocol Last Admin: 03/16/18 10:20 Dose: 100 mls/hr Insulin Aspart (Novolog Vial Sliding Scale -) 1 vial SQ ACHS REPLACED BY [facility]; Protocol Last Admin: 03/16/18 06:34 Dose: 3 units Insulin Detemir (Levemir Vial) 45 units SQ ACBK REPLACED BY [facility] Last Admin: 03/16/18 06:34 Dose: 45 units Lisinopril (Prinivil) 20 mg PO DAILY REPLACED BY [facility] Last Admin: 03/16/18 10:19 Dose: 20 mg Montelukast Sodium (Singulair -) 10 mg PO HS REPLACED BY [facility] Last Admin: 03/15/18 22:25 Dose: 10 mg Pantoprazole Sodium (Protonix -) 20 mg PO DAILY REPLACED BY [facility] Last Admin: 03/16/18 10:19 Dose: 20 mg Prednisone (Deltasone -) 40 mg PO DAILY REPLACED BY [facility] Last Admin: 03/16/18 10:19 Dose: 40 mg - Objective Vital Signs: Vital Signs Temperature 99.3 F 03/16/18 10:00 Pulse Rate 90 03/16/18 10:00 Respiratory Rate 20 03/16/18 10:00 Blood Pressure 132/74 03/16/18 10:00 O2 Sat by Pulse Oximetry (%) 94 L 03/15/18 20:51 Constitutional: Yes: No Distress Cardiovascular: Yes: Regular Rate and Rhythm Respiratory: Yes: Diminished Gastrointestinal: Yes: Normal Bowel Sounds, Soft. No: Tenderness Edema: No Labs: CBC, BMP 03/13/18 07:28 03/13/18 07:48 Problem List - Problems (1) UTI (urinary tract infection) Code(s): N39.0 - URINARY TRACT INFECTION, SITE NOT SPECIFIED (2) COPD (chronic obstructive pulmonary disease) Code(s): J44.9 - CHRONIC OBSTRUCTIVE PULMONARY DISEASE, UNSPECIFIED Qualifiers: (3) COPD with acute exacerbation Code(s): J44.1 - CHRONIC OBSTRUCTIVE PULMONARY DISEASE W (ACUTE) EXACERBATION (4) HTN (hypertension) Code(s): I10 - ESSENTIAL (PRIMARY) HYPERTENSION (5) IDDM (insulin dependent diabetes mellitus) Code(s): E11.9 - TYPE 2 DIABETES MELLITUS WITHOUT COMPLICATIONS; Z79.4 - CARE HOME (CURRENT) USE OF INSULIN Assessment/Plan PLAN continue with prednisone still SOB slow taper on Levaquin for UTI continue with meds Diabetic control CT chest -- spoke with pt incentive spirometry
--- NOTE | 2018-03-16 12:56 | PN ---
Progress Note (short form) - Note Progress Note: PULMONARY States breathing worse today, short of breath overnight. Last Vital Signs Temp Pulse Resp BP Pulse Ox 99.3 F 90 20 132/74 94 L 03/16/18 10:00 03/16/18 10:00 03/16/18 10:00 03/16/18 10:00 03/15/18 20:51 Gen: NAD at rest Heart: RRR Lung: decreased breath sounds at the bases, no wheezes Abd: soft, nontender Ext: no edema CBC, BMP 03/13/18 07:28 03/13/18 07:48 Active Medications Acetaminophen (Tylenol -) 650 mg PO Q4H PRN PRN Reason: PAIN LEVEL 1-5 Albuterol Sulfate (Ventolin 0.083% Nebulizer Soln -) 1 amp NEB Q1H PRN PRN Reason: SHORT OF BREATH/WHEEZING Amlodipine Besylate (Norvasc -) 10 mg PO DAILY [facility] Last Admin: 03/16/18 10:19 Dose: 10 mg Atorvastatin Calcium (Lipitor -) 10 mg PO HS [facility] Last Admin: 03/15/18 22:25 Dose: 10 mg Budesonide/Formoterol Fumarate (Symbicort 80/4.5mcg -) 2 puff IH BID [facility] Last Admin: 03/16/18 10:19 Dose: 2 puff Docusate Sodium (Colace -) 100 mg PO TID [facility] Last Admin: 03/16/18 06:34 Dose: 100 mg Enoxaparin Sodium (Lovenox -) 40 mg SQ DAILY [facility] Last Admin: 03/16/18 10:20 Dose: 40 mg Folic Acid (Folic Acid -) 1 mg PO DAILY [facility] Last Admin: 03/16/18 10:19 Dose: 1 mg Levofloxacin (Levaquin 500 Mg Premixed Ivpb -) 500 mg in 100 mls @ 100 mls/hr IVPB DAILY [facility]; Protocol Last Admin: 03/16/18 10:20 Dose: 100 mls/hr Insulin Aspart (Novolog Vial Sliding Scale -) 1 vial SQ ACHS [facility]; Protocol Last Admin: 03/16/18 06:34 Dose: 3 units Insulin Detemir (Levemir Vial) 45 units SQ ACBK [facility] Last Admin: 03/16/18 06:34 Dose: 45 units Lisinopril (Prinivil) 20 mg PO DAILY [facility] Last Admin: 03/16/18 10:19 Dose: 20 mg Montelukast Sodium (Singulair -) 10 mg PO HS [facility] Last Admin: 03/15/18 22:25 Dose: 10 mg Pantoprazole Sodium (Protonix -) 20 mg PO DAILY [facility] Last Admin: 03/16/18 10:19 Dose: 20 mg Prednisone (Deltasone -) 40 mg PO DAILY [facility] Last Admin: 03/16/18 10:19 Dose: 40 mg A/P Acute COPD Exacerbation LV Diastolic Dysfunction HTN DM h/o Breast Ca - continue prednisone - inhaled bronchodilators standing and PRN - if still worse, may need to resume medrol - O2 to keep SpO2 >90% - DVT prophylaxis
[2018-03-16] MEDS ORDERED: PT OWN MED DRAWER 7, Y5N ONE (22:22)
[2018-03-16] MEDS: ATORVASTATIN CA 10 MG TABLET (FP) PO SCH (22:26)
[2018-03-16] MEDS: MONTELUKAST NA 10 MG TABLET PO SCH (22:26)
[2018-03-17] MEDS: DOCUSATE SODIUM 100 MG CAPSULE (FP) PO SCH ×3 (05:28→21:29)
[2018-03-17] MEDS: INSULIN SLIDING SCALE (NOVOLOG) 1 VIAL SQ SCH ×4 (06:07→21:33)
[2018-03-17] MEDS: ALBUTEROL SO4 2.5/IPRATROPIUM 0.5 INH SOL 3 ML VIAL.NEB. NEB SCH ×4 (08:34→20:41)
[2018-03-17] MEDS ORDERED: PT OWN MED DRAWER 7, Y5N ONE (09:45)
[2018-03-17] MEDS: INSULIN (LEVEMIR) 100 UNITS/ML UNITS SQ SCH (09:48)
[2018-03-17] MEDS: BUDESONIDE/FORMETEROL FUMARATE 80/4.5 mcg INHALER IH SCH ×2 (09:49→21:29)
[2018-03-17] MEDS: ENOXAPARIN NA (PORCINE) 40 MG/0.4 ML DISP.SYRIN SQ SCH (09:50)
[2018-03-17] MEDS: amLODIPine BESYLATE 10 MG TABLET (FP) PO SCH (09:50)
[2018-03-17] MEDS: predniSONE 20 MG TABLET (UD) PO SCH (09:50)
[2018-03-17] MEDS: LISINOPRIL 20 MG TABLET (FP) PO SCH (09:50)
[2018-03-17] MEDS: PANTOPRAZOLE 20 MG TABLET (FP) PO SCH (09:50)
[2018-03-17] MEDS: FOLIC ACID 1 MG TABLET (FP) PO SCH (09:50)
--- NOTE | 2018-03-17 12:05 | PN ---
Progress Note, Physician History of Present Illness: pulmonary alert,feeling better,-resp distress - Current Medication List Current Medications: Active Medications Acetaminophen (Tylenol -) 650 mg PO Q4H PRN PRN Reason: PAIN LEVEL 1-5 Albuterol Sulfate (Ventolin 0.083% Nebulizer Soln -) 1 amp NEB Q1H PRN PRN Reason: SHORT OF BREATH/WHEEZING Last Admin: 03/17/18 01:56 Dose: 1 amp Albuterol/Ipratropium (Duoneb -) 1 amp NEB RQID [facility] Last Admin: 03/17/18 11:48 Dose: 1 amp Amlodipine Besylate (Norvasc -) 10 mg PO DAILY [facility] Last Admin: 03/17/18 09:50 Dose: 10 mg Atorvastatin Calcium (Lipitor -) 10 mg PO HS [facility] Last Admin: 03/16/18 22:26 Dose: 10 mg Budesonide/Formoterol Fumarate (Symbicort 80/4.5mcg -) 2 puff IH BID [facility] Last Admin: 03/17/18 09:49 Dose: 2 puff Docusate Sodium (Colace -) 100 mg PO TID [facility] Last Admin: 03/17/18 05:28 Dose: Not Given Enoxaparin Sodium (Lovenox -) 40 mg SQ DAILY [facility] Last Admin: 03/17/18 09:50 Dose: 40 mg Folic Acid (Folic Acid -) 1 mg PO DAILY [facility] Last Admin: 03/17/18 09:50 Dose: 1 mg Levofloxacin (Levaquin 500 Mg Premixed Ivpb -) 500 mg in 100 mls @ 100 mls/hr IVPB DAILY [facility]; Protocol Last Admin: 03/17/18 09:49 Dose: 100 mls/hr Insulin Aspart (Novolog Vial Sliding Scale -) 1 vial SQ ACHS [facility]; Protocol Last Admin: 03/17/18 06:07 Dose: Not Given Insulin Detemir (Levemir Vial) 45 units SQ ACBK [facility] Last Admin: 03/17/18 09:48 Dose: 45 units Lisinopril (Prinivil) 20 mg PO DAILY [facility] Last Admin: 03/17/18 09:50 Dose: 20 mg Montelukast Sodium (Singulair -) 10 mg PO HS [facility] Last Admin: 03/16/18 22:26 Dose: 10 mg Pantoprazole Sodium (Protonix -) 20 mg PO DAILY [facility] Last Admin: 03/17/18 09:50 Dose: 20 mg Prednisone (Deltasone -) 40 mg PO DAILY [facility] Last Admin: 03/17/18 09:50 Dose: 40 mg - Objective Vital Signs: Vital Signs Temperature 98.4 F 03/17/18 10:00 Pulse Rate 85 03/17/18 10:00 Respiratory Rate 20 03/17/18 10:00 Blood Pressure 132/65 03/17/18 10:00 O2 Sat by Pulse Oximetry (%) 95 03/17/18 09:00 Constitutional: Yes: Well Nourished, Calm Eyes: Yes: WNL HENT: Yes: WNL Neck: Yes: WNL Cardiovascular: Yes: Regular Rate and Rhythm, S1, S2 Respiratory: Yes: Rales (few bibasilar rales) Gastrointestinal: Yes: Normal Bowel Sounds, Soft Extremities: Yes: WNL Edema: No Labs: Assessment/Plan 1) Breast CA Code(s): C50.919 - MALIGNANT NEOPLASM OF UNSP SITE OF UNSPECIFIED FEMALE BREAST (2) COPD (chronic obstructive pulmonary disease) Code(s): J44.9 - CHRONIC OBSTRUCTIVE PULMONARY DISEASE, UNSPECIFIED Qualifiers: (3) COPD with acute exacerbation Code(s): J44.1 - CHRONIC OBSTRUCTIVE PULMONARY DISEASE W (ACUTE) EXACERBATION (4) HTN (hypertension) Code(s): I10 - ESSENTIAL (PRIMARY) HYPERTENSION (5) IDDM (insulin dependent diabetes mellitus) Code(s): E11.9 - TYPE 2 DIABETES MELLITUS WITHOUT COMPLICATIONS; Z79.4 - MCC (CURRENT) USE OF INSULIN (6) Asthma exacerbation Code(s): J45.901 - UNSPECIFIED ASTHMA WITH (ACUTE) EXACERBATION (7) Diastolic CHF Code(s): I50.30 - UNSPECIFIED DIASTOLIC (CONGESTIVE) HEART FAILURE Qualifiers: Qualified Code(s): I50.32 - Chronic diastolic (congestive) heart failure (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 Assessment/Plan STEROIDS INHALED BRONCHODILATORS GYLCEMIC CONTROL DVT PROPHYLAXSIS OOB TO CHAIR INCENTIVE SPIROMETRY DR SMITH Problem List - Problems (1) Breast CA Code(s): C50.919 - MALIGNANT NEOPLASM OF UNSP SITE OF UNSPECIFIED FEMALE BREAST (2) COPD (chronic obstructive pulmonary disease) Code(s): J44.9 - CHRONIC OBSTRUCTIVE PULMONARY DISEASE, UNSPECIFIED Qualifiers: (3) COPD with acute exacerbation Code(s): J44.1 - CHRONIC OBSTRUCTIVE PULMONARY DISEASE W (ACUTE) EXACERBATION (4) HTN (hypertension) Code(s): I10 - ESSENTIAL (PRIMARY) HYPERTENSION (5) IDDM (insulin dependent diabetes mellitus) Code(s): E11.9 - TYPE 2 DIABETES MELLITUS WITHOUT COMPLICATIONS; Z79.4 - MCC (CURRENT) USE OF INSULIN (6) Asthma exacerbation Code(s): J45.901 - UNSPECIFIED ASTHMA WITH (ACUTE) EXACERBATION (7) Diastolic CHF Code(s): I50.30 - UNSPECIFIED DIASTOLIC (CONGESTIVE) HEART FAILURE Qualifiers: Qualified Code(s): I50.32 - Chronic diastolic (congestive) heart failure (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
--- NOTE | 2018-03-17 13:15 | PN ---
Progress Note (short form) - Note Progress Note: pt seen / examined chart reviewed feels better Vital Signs Temp 98.4 F 03/17/18 10:00 Pulse 85 03/17/18 10:00 Resp 20 03/17/18 10:00 BP 132/65 03/17/18 10:00 Pulse Ox 95 03/17/18 09:00 Intake & Output 03/16/18 03/17/18 03/17/18 23:59 11:59 23:59 Intake Total 600 Balance 600 Intake: IVPB 100 Oral 500 Other: Voiding Method Toilet Toilet # Unmeasured Voids Void 2 2 Bowel Movement Yes # Bowel Movements 2 Active Medications Acetaminophen (Tylenol -) 650 mg PO Q4H PRN PRN Reason: PAIN LEVEL 1-5 Albuterol Sulfate (Ventolin 0.083% Nebulizer Soln -) 1 amp NEB Q1H PRN PRN Reason: SHORT OF BREATH/WHEEZING Last Admin: 03/17/18 01:56 Dose: 1 amp Albuterol/Ipratropium (Duoneb -) 1 amp NEB RQID [facility] Last Admin: 03/17/18 11:48 Dose: 1 amp Amlodipine Besylate (Norvasc -) 10 mg PO DAILY [facility] Last Admin: 03/17/18 09:50 Dose: 10 mg Atorvastatin Calcium (Lipitor -) 10 mg PO HS [facility] Last Admin: 03/16/18 22:26 Dose: 10 mg Budesonide/Formoterol Fumarate (Symbicort 80/4.5mcg -) 2 puff IH BID [facility] Last Admin: 03/17/18 09:49 Dose: 2 puff Docusate Sodium (Colace -) 100 mg PO TID [facility] Last Admin: 03/17/18 05:28 Dose: Not Given Enoxaparin Sodium (Lovenox -) 40 mg SQ DAILY [facility] Last Admin: 03/17/18 09:50 Dose: 40 mg Folic Acid (Folic Acid -) 1 mg PO DAILY [facility] Last Admin: 03/17/18 09:50 Dose: 1 mg Levofloxacin (Levaquin 500 Mg Premixed Ivpb -) 500 mg in 100 mls @ 100 mls/hr IVPB DAILY [facility]; Protocol Last Admin: 03/17/18 09:49 Dose: 100 mls/hr Insulin Aspart (Novolog Vial Sliding Scale -) 1 vial SQ ACHS [facility]; Protocol Last Admin: 03/17/18 12:50 Dose: 3 units Insulin Detemir (Levemir Vial) 45 units SQ ACBK [facility] Last Admin: 03/17/18 09:48 Dose: 45 units Lisinopril (Prinivil) 20 mg PO DAILY [facility] Last Admin: 03/17/18 09:50 Dose: 20 mg Montelukast Sodium (Singulair -) 10 mg PO HS [facility] Last Admin: 03/16/18 22:26 Dose: 10 mg Pantoprazole Sodium (Protonix -) 20 mg PO DAILY [facility] Last Admin: 03/17/18 09:50 Dose: 20 mg Prednisone (Deltasone -) 40 mg PO DAILY [facility] Last Admin: 03/17/18 09:50 Dose: 40 mg CBC, BMP 03/13/18 07:28 03/13/18 07:48 Physical Constitutional: Yes: No Distress Cardiovascular: Yes: Regular Rate and Rhythm Respiratory: Yes: Diminished at bases Gastrointestinal: Yes: Normal Bowel Sounds, Soft. No: Tenderness Edema: No a/p overall better d/c plannning dont want to go today continue abx pulmonary to follow discussed anticipate d/c tomorrow Problem List - Problems (1) COPD with acute exacerbation Code(s): J44.1 - CHRONIC OBSTRUCTIVE PULMONARY DISEASE W (ACUTE) EXACERBATION (2) COPD (chronic obstructive pulmonary disease) Code(s): J44.9 - CHRONIC OBSTRUCTIVE PULMONARY DISEASE, UNSPECIFIED Qualifiers: (3) HTN (hypertension) Code(s): I10 - ESSENTIAL (PRIMARY) HYPERTENSION (4) IDDM (insulin dependent diabetes mellitus) Code(s): E11.9 - TYPE 2 DIABETES MELLITUS WITHOUT COMPLICATIONS; Z79.4 - [employer]ATOR (CURRENT) USE OF INSULIN (5) Breast CA Code(s): C50.919 - MALIGNANT NEOPLASM OF UNSP SITE OF UNSPECIFIED FEMALE BREAST
[2018-03-17] MEDS: ATORVASTATIN CA 10 MG TABLET (FP) PO SCH (21:29)
[2018-03-17] MEDS: MONTELUKAST NA 10 MG TABLET PO SCH (21:29)
[2018-03-17] MEDS ORDERED: INSULIN (NOVOLOG) ASPART 100 UNITS/ML 10ML VIAL ONE (21:33)
[2018-03-18] MEDS ORDERED: INSULIN (NOVOLOG) ASPART 100 UNITS/ML 10ML VIAL ONE (06:35)
[2018-03-18 06:38] LABS: BASO % 0.1 % (0-2.0); EOS % 0.8 % (0-4.5); HEMOGLOBIN 10.5 GM/dL (10.7-15.3); LYMPH % 15.6 % (8-40); MCH 21.1 pg (25.7-33.7); MEAN CELL VOLUME 67.9 fl (80-96); MONO % 5.7 % (3.8-10.2); NEUT % 77.8 % (42.8-82.8); PLATELET COUNT 417 K/MM3 (134-434); RBC 5.01 M/mm3 (3.60-5.2); RDW 17.5 % (11.6-15.6); WHITE BLOOD COUNT 16.3 K/mm3 (4.0-10.0)
[2018-03-18] MEDS: INSULIN SLIDING SCALE (NOVOLOG) 1 VIAL SQ SCH ×2 (06:39→11:48)
[2018-03-18] MEDS: INSULIN (LEVEMIR) 100 UNITS/ML UNITS SQ SCH (06:39)
[2018-03-18] MEDS: DOCUSATE SODIUM 100 MG CAPSULE (FP) PO SCH ×2 (06:39→13:30)
[2018-03-18 06:48] LABS: ADD RBC MORPHOLOGY YES
[2018-03-18 07:01] LABS: ALBUMIN 2.9 g/dl (3.4-5.0); ANION GAP 5 (8-16); BLOOD UREA NITROGEN 24 mg/dL (7-18); CALCIUM 8.6 mg/dL (8.5-10.1); CHLORIDE 100 mmol/L (98-107); CO2 34 mmol/L (21-32); CREATININE 0.9 mg/dL (0.55-1.02); GLUCOSE,RANDOM 97 mg/dL (74-106); POTASSIUM 4.3 mmol/L (3.5-5.1); SGOT/AST 7 U/L (15-37); SGPT/ALT 18 U/L (12-78); SODIUM 139 mmol/L (136-145)
[2018-03-18 07:03] LABS: ALK PHOS 112 U/L (45-117); BILIRUBIN,TOTAL 0.4 mg/dL (0.2-1.0)
[2018-03-18] MEDS: ALBUTEROL SO4 2.5/IPRATROPIUM 0.5 INH SOL 3 ML VIAL.NEB. NEB SCH ×2 (08:00→12:00)
[2018-03-18] MEDS ORDERED: PT OWN MED DRAWER 7, Y5N ONE (08:51)
[2018-03-18] MEDS: PANTOPRAZOLE 20 MG TABLET (FP) PO SCH (09:00)
[2018-03-18] MEDS: LISINOPRIL 20 MG TABLET (FP) PO SCH (09:00)
[2018-03-18] MEDS: predniSONE 20 MG TABLET (UD) PO SCH (09:00)
[2018-03-18] MEDS: amLODIPine BESYLATE 10 MG TABLET (FP) PO SCH (09:00)
[2018-03-18] MEDS: FOLIC ACID 1 MG TABLET (FP) PO SCH (09:00)
[2018-03-18] MEDS: BUDESONIDE/FORMETEROL FUMARATE 80/4.5 mcg INHALER IH SCH (09:00)
--- NOTE | 2018-03-18 09:18 | PN ---
Progress Note (short form) - Note Progress Note: PULMONARY States breathing is better today. No cough or wheezing. Last Vital Signs Temp Pulse Resp BP Pulse Ox 97.9 F 87 18 125/73 97 03/18/18 05:26 03/18/18 05:26 03/18/18 05:26 03/18/18 05:26 03/17/18 20:05 Gen: NAD at rest Heart: RRR Lung: decreased breath sounds at the bases, no wheezes Abd: soft, nontender Ext: no edema CBC, BMP 03/18/18 06:00 03/18/18 06:00 Active Medications Acetaminophen (Tylenol -) 650 mg PO Q4H PRN PRN Reason: PAIN LEVEL 1-5 Albuterol/Ipratropium (Duoneb -) 1 amp NEB RQID [facility] Last Admin: 03/17/18 20:41 Dose: 1 amp Amlodipine Besylate (Norvasc -) 10 mg PO DAILY [facility] Last Admin: 03/18/18 09:00 Dose: 10 mg Atorvastatin Calcium (Lipitor -) 10 mg PO HS [facility] Last Admin: 03/17/18 21:29 Dose: 10 mg Budesonide/Formoterol Fumarate (Symbicort 80/4.5mcg -) 2 puff IH BID [facility] Last Admin: 03/18/18 09:00 Dose: 2 puff Docusate Sodium (Colace -) 100 mg PO TID [facility] Last Admin: 03/18/18 06:39 Dose: Not Given Enoxaparin Sodium (Lovenox -) 40 mg SQ DAILY [facility] Last Admin: 03/17/18 09:50 Dose: 40 mg Folic Acid (Folic Acid -) 1 mg PO DAILY [facility] Last Admin: 03/18/18 09:00 Dose: 1 mg Levofloxacin (Levaquin 500 Mg Premixed Ivpb -) 500 mg in 100 mls @ 100 mls/hr IVPB DAILY [facility]; Protocol Last Admin: 03/18/18 09:00 Dose: 100 mls/hr Insulin Aspart (Novolog Vial Sliding Scale -) 1 vial SQ ACHS [facility]; Protocol Last Admin: 03/18/18 06:39 Dose: Not Given Insulin Detemir (Levemir Vial) 45 units SQ ACBK [facility] Last Admin: 03/18/18 06:39 Dose: 45 units Lisinopril (Prinivil) 20 mg PO DAILY [facility] Last Admin: 03/18/18 09:00 Dose: 20 mg Montelukast Sodium (Singulair -) 10 mg PO HS [facility] Last Admin: 03/17/18 21:29 Dose: 10 mg Pantoprazole Sodium (Protonix -) 20 mg PO DAILY [facility] Last Admin: 03/18/18 09:00 Dose: 20 mg Prednisone (Deltasone -) 40 mg PO DAILY [facility] Last Admin: 03/18/18 09:00 Dose: 40 mg A/P Acute COPD Exacerbation UTI LV Diastolic Dysfunction HTN DM h/o Breast Ca - complete antibiotics - prednisone taper - inhaled bronchodilators standing and PRN - O2 to keep SpO2 >90% - DVT prophylaxis - can d/c home from pulmonary standpoint
[2018-03-18 10:38] VITALS: BP 127/81; PULSE 83; TEMP 98.9
--- NOTE | 2018-03-18 10:51 | DS ---
Physical Examination Vital Signs: Vital Signs Temperature 98.9 F 03/18/18 10:00 Pulse Rate 83 03/18/18 10:00 Respiratory Rate 18 03/18/18 10:00 Blood Pressure 127/81 03/18/18 10:00 O2 Sat by Pulse Oximetry (%) 95 03/18/18 09:00 Findings/Remarks: feels well no complains Constitutional: Yes: No Distress Eyes: Yes: Conjunctiva Clear Neck: Yes: Supple Cardiovascular: Yes: Regular Rate and Rhythm Respiratory: Yes: Regular Gastrointestinal: Yes: Normal Bowel Sounds, Soft Edema: No Neurological: Yes: Alert Psychiatric: Yes: Alert Labs: CBC, BMP 03/18/18 06:00 03/18/18 06:00 Discharge Summary Reason For Visit: COPD Current Active Problems Breast CA (Acute) COPD (chronic obstructive pulmonary disease) (Acute) COPD with acute exacerbation (Acute) HTN (hypertension) (Acute) IDDM (insulin dependent diabetes mellitus) (Acute) UTI (urinary tract infection) (Acute) Hospital Course: The patient is a 77 year old female with a significant PMH of COPD, asthma, breast CA, colon CA, ovarian CA, HTN, hyperlipidemia, and diabetes= admitted for copd exac treated with steroids/ nebulizers pulmonary followed also treated for uti with abx-- E coli now stable for d/c meds reconcilled discussed with pt/ nursing staff d/c home today advised to f/u with her pmd in one week as well with pulmonary also advised to get f/u cxr done in 4 weeks-- pt in agreement Condition: Stable - Instructions Referrals: Edilson Day MD [Primary Care Provider] - Disposition: HOME - Home Medications Comprehensive Discharge Medication List: Ambulatory Orders Albuterol Sulfate [Proair Hfa] 8.5 gm IH DAILY 03/10/18 Amlodipine Besylate 10 mg PO DAILY 03/10/18 Fluticasone/Salmeterol [Advair 250-50 Diskus] 1 each IH DAILY 03/10/18 Folic Acid - 1 mg PO DAILY 03/10/18 Insulin Glargine,Hum.rec.anlog [Basaglar Kwikpen U-100] 45 unit SQ DAILY Lisinopril 20 mg PO DAILY 03/10/18 Montelukast Na [Singulair -] 10 mg PO HS 03/10/18 Simvastatin 10 mg PO HS 03/10/18 Sitagliptin Phos/Metformin HCl [Janumet 50-1,000 mg Tablet] 1 each PO BID Spiriva Respimat 2 inh DAILY 03/10/18 Acetaminophen [Tylenol .Regular Strength -] 650 mg PO Q4H PRN tablet 03/18/18 Albuterol 0.083% Nebulizer Jazmine [Ventolin 0.083% Nebulizer Soln -] 1 amp NEB Q1H PRN amp 03/18/18 Budesonide/Formeterol Fumarate [SYMBICORT 80/4.5mcg -] 2 puff IH BID inhaler Docusate Sodium [Colace -] 100 mg PO TID capsule 03/18/18 Pantoprazole Sodium [Protonix -] 20 mg PO DAILY 30 Days #30 tablet.ec 03/18/18 Prednisone 10 mg PO DAILY 10 Days #30 tab.ds.pk 03/18/18 levoFLOXacin [Levaquin -] 500 mg PO DAILY 5 Days #5 tablet 03/18/18
[2018-03-18 10:56] LABS: ANISOCYTOSIS 1+; PLATELET ESTIMATE NORMAL
== END 2018-03-18 15:18 | disposition home or self-care (01) | DRG 191 ==
LOC: JER 10:01 → JERBED 14:50 → J4S 18:55 → OBSVTOIN 03-11 09:57
PROVIDERS: ADMIT Internal Medicine; ATTEND Internal Medicine
PROC: 3E0F76Z Introduction of Nutritional Substance into Respiratory Tract, Via Natural or Artificial Opening (ICD-10-PCS; principal; 2018-03-10)
DX: J44.1 Chronic obstructive pulmonary disease with (acute) exacerbation (principal); I50.32 Chronic diastolic (congestive) heart failure; J98.11 Atelectasis; N39.0 Urinary tract infection, site not specified; B96.29 Other Escherichia coli [E. coli] as the cause of diseases classified elsewhere; I11.0 Hypertensive heart disease with heart failure; E66.9 Obesity, unspecified; Z68.29 Body mass index [BMI] 29.0-29.9, adult; E11.9 Type 2 diabetes mellitus without complications; Z79.4 Long term (current) use of insulin; Z79.84 Long term (current) use of oral hypoglycemic drugs; Z85.3 Personal history of malignant neoplasm of breast; Z85.038 Personal history of other malignant neoplasm of large intestine; Z85.43 Personal history of malignant neoplasm of ovary; Z87.891 Personal history of nicotine dependence; Z99.81 Dependence on supplemental oxygen; E78.5 Hyperlipidemia, unspecified
CPT/HCPCS: 36415; 71045-TC-FY; 71250-TC; 80053; 81003; 81015; 82962; 83880; 84484; 85025; 85379; 87086; 87186; 93005; 93010; 93306-TC; 93880-TC; 94640; 97116-GP; 97161-GP; 99285-25; G0378; J7620

== ENCOUNTER 2019-07-26 09:24 | Inpatient (IN) | payer BC, OTHER ==
--- NOTE | 2019-07-26 09:53 | PDOC ---
Attending Attestation - Resident Resident Name: Rena Willis - HPI HPI: 07/26/19 12:24 Pt presents to the ED complaining of shortness of breath. History of COPD, intermitently uses home O2. Denies chest pain. Denies leg swelling. Complains of HAUSER and orthopnea. States that she was recently found to be anemic by her PCP, but denies bleeding complaints. - Physicial Exam PE: 07/26/19 12:38 Agree with resident exam. Patient is mildly tachpneic. Lungs are clear with good air entry b/l. Heart: regular rate and rhythm, no murmurs. abdomen: soft , non tender, non distended. - Medical Decision Making 07/26/19 12:39 Pt presents to the ED complaining of shortness of breath. Differential included COPD exacerbation, anemia, less likely PE or PNA. Labs show severe anemia with hgb of 7.4. Will transfuse and admit for symptomatic anemia.
--- NOTE | 2019-07-26 10:04 | PDOC ---
History of Present Illness - General Chief Complaint: Lightheaded Stated Complaint: Dizziness w/Nausea Time Seen by Provider: 07/26/19 09:42 History Source: Patient Exam Limitations: No Limitations - History of Present Illness Initial Comments: 07/26/19 09:57 78YOM with h/o COPD and asthma (on prn home O2 and has needed this for the past day, has been admitted to the floor for breathing but never the ICU and never intubated for this, takes regular ProAir, Advair, Prednisone 20 mg/day, Singulair, Spiriva, and was also recently started on Theophylline), severe anemia (diagnosed by her OP providers recently and has not yet had heme workup) , DVT (on Xarelto), breast CA, colon CA, ovarian CA, HTN, HLD, and IDDM who p/w SOB, lightheadedness and presyncope, and generalized weakness for the past day. She notes intermittently feeling like this for several days but this morning is much worse. She also has been having diarrhea and nausea, but denies CP, back pain, AP, dysuria, leg pain/swelling, headache, vision changes, or other symptoms. She does not know whether or not there has been blood in her stool because she does not check Past History - Past Medical History Allergies/Adverse Reactions: Allergies Allergy/AdvReac Type Severity Reaction Status Date / Time No Known Allergies Allergy Unverified 11/23/16 18:42 Home Medications: Ambulatory Orders Albuterol Sulfate [Proair Hfa] 8.5 gm IH DAILY 03/10/18 Amlodipine Besylate 10 mg PO DAILY 03/10/18 Folic Acid - 1 mg PO DAILY 03/10/18 Insulin Glargine,Hum.rec.anlog [Basaglar Kwikpen U-100] 45 unit SQ DAILY Lisinopril 20 mg PO DAILY 03/10/18 Montelukast Na [Singulair -] 10 mg PO HS 03/10/18 Simvastatin 10 mg PO HS 03/10/18 Sitagliptin Phos/Metformin HCl [Janumet 50-1,000 mg Tablet] 1 each PO BID Acetaminophen [Tylenol .Regular Strength -] 650 mg PO Q4H PRN tablet 03/18/18 Docusate Sodium [Colace -] 100 mg PO TID capsule 03/18/18 Albuterol 0.083% Nebulizer Jazmine [Ventolin 0.083% Nebulizer Soln -] 1 amp NEB Q4H PRN 07/26/19 Fluticasone/Salmeterol [Advair 250-50 Diskus] 1 inh PO DAILY 07/26/19 Prednisone 20 mg PO DAILY 07/26/19 Ranitidine HCl 150 mg PO BID 07/26/19 Rivaroxaban [Xarelto -] 20 mg PO DAILY 07/26/19 Theophylline Anhydrous [Haim-24] 400 mg PO DAILY 07/26/19 Anemia: Yes (chemo related) Asthma: Yes Cancer: Yes (rt breast, colon ,ovarian) Cardiac Disorders: No CVA: No COPD: Yes CHF: No Dementia: No Diabetes: Yes GI Disorders: No Disorders: No HTN: Yes Hypercholesterolemia: Yes Liver Disease: No Seizures: No Thyroid Disease: No - Surgical History Abdominal Surgery: Yes (colon) Appendectomy: Yes Cardiac Surgery: No Cholecystectomy: No Lung Surgery: No Neurologic Surgery: No Orthopedic Surgery: No - Immunization History Immunization Up to Date: No - Psycho Social/Smoking Cessation Hx Smoking History: Never smoked Have you smoked in the past 12 months: No If you are a former smoker, when did you quit?: 10yrs ago Information on smoking cessation initiated: No Hx Alcohol Use: No Drug/Substance Use Hx: No Substance Use Type: None Hx Substance Use Treatment: No Review of Systems - Review of Systems Able to Perform ROS?: Yes Comments:: 07/26/19 10:13 GEN: subjective chills, malaise, and generalized weakness, no weight change HEENT: no ear pain, sore throat, vision change, or eye pain CV: lightheadedness, pre-syncope, no chest pain, palpitations, or edema RESP: cough, wheezing, SOB GI: nausea, diarrhea, no abdominal pain, vomiting, or constipation : no dysuria, hematuria, incontinence, retention, bleeding, or discharge MSK: no neck/back pain, muscle weakness/pain, or joint swelling/pain NEURO: no headache, seizure, vertigo, numbness, tingling, or focal weakness PSYCH: no substance use, no behavior change SKIN: no jaundice, no rash ROS otherwise negative except as noted in HPI *Physical Exam - Vital Signs Last Vital Signs Temp Pulse Resp BP Pulse Ox 98.5 F 106 H 16 119/57 L 96 07/26/19 09:31 10 09:31 07/26/19 09:31 07/26/19 09:31 07/26/19 09:31 - Physical Exam Comments: 07/26/19 10:32 GENERAL: a bit uncomfortable-appearing, A/Ox4, mild distress, answers questions appropriately, 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 Rectal with small non-thrombosed nontender external hemorrhoid at 12 o'clock, no active bleeding, no stool, no sample for FOBT : no CVA tenderness EXTREMITIES: no muscle atrophy, no acute deformity, no palpable cords SKIN: warm and dry, pale, no jaundice, no rash, no bruising, no skin breakdown, no cuts, no lesions NEUROLOGICAL: GCS 15, CN II-XII grossly intact, 5/5 strength proximally and distally, no facial droop Heart Score/ECG Review #1 07/26/19 9:34 NSR, rate 99, normal axis and intervals, no ischemic ST-T changes ED Treatment Course - LABORATORY CBC & Chemistry Diagram: 07/26/19 10:30 07/26/19 10:30 Medical Decision Making - Medical Decision Making 07/26/19 10:28 07/26/19 10:23 Pt with h/o COPD, asthma, severe anemia, and DVT on Xarelto p/w SOB, lightheadedness, pre-syncope, generalized weakness. Initial Vital Signs Temp Pulse Resp BP Pulse Ox 98.5 F 106 H 16 119/57 L 96 07/26/19 09:31 10 09:31 07/26/19 09:31 07/26/19 09:31 07/26/19 09:31 Exam: As noted in Physical Exam section. DDX IBNLT: most likely this is SOB with multifactorial etiology but mostly d/t severe anemia and with a smaller contribution from COPD/asthma exacerbation, also possibly ACS, PE, less likely bronchitis, viral URI, influenza, PNA, PTX, CHF, pericarditis, etc W/U ordered: CBCD CMP Mg Phos Cardiac panel Blood gas EKG CXR TX ordered: DuoNebs, SoluMedrol, O2 to keep pulse ox at 92% EKG: Reviewed; results as noted in ECG Review section. RAD/CHEST X-RAY PORTABLE* Chest: Shortness of breath Single view of the chest is been submitted. Since 03/10/2018 is a smaller heart with normal aorta, slightly prominent beverley and some atelectatic changes at the bases more on the right than the left. There are some granulomatous findings especially on the right. There are right arm or chest wall clips. There are some degenerative changes. Correlation recommended. Laboratory Tests 07/26/19 07/26/19 07/26/19 10:30 10:30 10:30 WBC 7.7 RBC 3.70 Hgb 7.4 L Hct 23.5 L D MCV 63.7 L MCH 20.0 L MCHC 31.4 L RDW 18.1 H Plt Count 591 H D MPV 7.7 Absolute Neuts (auto) 5.4 Neutrophils % 69.5 Lymphocytes % 16.9 Monocytes % 9.7 Eosinophils % 3.1 D Basophils % 0.8 D Nucleated RBC % 0 Hypochromia 1+ Platelet Estimate Increased Polychromasia 0 Poikilocytosis 1+ Anisocytosis 2+ Microcytosis 2+ Macrocytosis 0 Target Cells 1+ Ovalocytes 1+ Schistocytes 1+ PT with INR INR Sodium 139 Potassium 4.9 Chloride 106 Carbon Dioxide 24 Anion Gap 9 BUN 21.6 H Creatinine 1.3 Est GFR (CKD-EPI)AfAm 46.15 Est GFR (CKD-EPI)NonAf 39.82 Random Glucose 95 Calcium 9.9 Phosphorus 3.5 Magnesium 1.7 L Total Bilirubin 0.3 AST 9 L ALT 12 L Alkaline Phosphatase 99 Creatine Kinase 109 Troponin I < 0.02 Total Protein 7.5 Albumin 3.7 Urine Color Urine Appearance Urine pH Ur Specific [place] Urine Protein Urine Glucose (UA) Urine Ketones Urine Blood Urine Nitrite Urine Bilirubin Urine Urobilinogen Ur Leukocyte Esterase Urine WBC (Auto) Urine RBC (Auto) Urine Casts (Auto) U Epithel Cells (Auto) Urine Bacteria (Auto) Blood Type Antibody Screen Crossmatch 07/26/19 07/26/19 07/26/19 10:30 10:30 11:05 WBC RBC Hgb Hct MCV MCH MCHC RDW Plt Count MPV Absolute Neuts (auto) Neutrophils % Lymphocytes % Monocytes % Eosinophils % Basophils % Nucleated RBC % Hypochromia Platelet Estimate Polychromasia Poikilocytosis Anisocytosis Microcytosis Macrocytosis Target Cells Ovalocytes Schistocytes PT with INR 18.90 H INR 1.59 H Sodium Potassium Chloride Carbon Dioxide Anion Gap BUN Creatinine Est GFR (CKD-EPI)AfAm Est GFR (CKD-EPI)NonAf Random Glucose Calcium Phosphorus Magnesium Total Bilirubin AST ALT Alkaline Phosphatase Creatine Kinase Troponin I Total Protein Albumin Urine Color Urine Appearance Urine pH Ur Specific [place] Urine Protein Urine Glucose (UA) Urine Ketones Urine Blood Urine Nitrite Urine Bilirubin Urine Urobilinogen Ur Leukocyte Esterase Urine WBC (Auto) Urine RBC (Auto) Urine Casts (Auto) U Epithel Cells (Auto) Urine Bacteria (Auto) Blood Type O NEGATIVE O NEGATIVE Antibody Screen Negative Crossmatch See Detail 07/26/19 11:50 WBC RBC Hgb Hct MCV MCH MCHC RDW Plt Count MPV Absolute Neuts (auto) Neutrophils % Lymphocytes % Monocytes % Eosinophils % Basophils % Nucleated RBC % Hypochromia Platelet Estimate Polychromasia Poikilocytosis Anisocytosis Microcytosis Macrocytosis Target Cells Ovalocytes Schistocytes PT with INR INR Sodium Potassium Chloride Carbon Dioxide Anion Gap BUN Creatinine Est GFR (CKD-EPI)AfAm Est GFR (CKD-EPI)NonAf Random Glucose Calcium Phosphorus Magnesium Total Bilirubin AST ALT Alkaline Phosphatase Creatine Kinase Troponin I Total Protein Albumin Urine Color Yellow Urine Appearance Clear Urine pH 5.0 Ur Specific [place] 1.014 Urine Protein Negative Urine Glucose (UA) Negative Urine Ketones Negative Urine Blood Negative Urine Nitrite Negative Urine Bilirubin Negative Urine Urobilinogen 0.2 Ur Leukocyte Esterase 1+ H Urine WBC (Auto) 11 Urine RBC (Auto) 1 Urine Casts (Auto) 1 U Epithel Cells (Auto) 2.9 Urine Bacteria (Auto) 2887.8 Blood Type Antibody Screen Crossmatch Rectal with insufficient sample for FOBT. Reassessment: Improved, comfortable. 07/26/19 12:56 1 unit pRBC ordered for symptomatic anemia. IV abx started (ceftriaxone) for UTI. The Pts symptoms persist despite ED treatments. They are not safe for discharge from the ED at this time. They require further hospital observation, workup, and treatment. Call placed to [facility] for admission for Dr. Day. Blank Decision to Admit order is placed per ED protocol. 07/26/19 13:[address] Corey, patient going to IP Telemetry. Discharge - Discharge Information Problems reviewed: Yes Clinical Impression/Diagnosis: Symptomatic anemia, COPD with acute exacerbation Dyspnea Qualifiers: Dyspnea type: unspecified Qualified Code(s): R06.00 - Dyspnea, unspecified UTI (urinary tract infection) Qualifiers: Urinary tract infection type: acute cystitis Hematuria presence: without hematuria Qualified Code(s): N30.00 - Acute cystitis without hematuria Condition: Stable - Admission Yes - Follow up/Referral Referrals: Edilson Day MD [Primary Care Provider] - - Patient Discharge Instructions - Post Discharge Activity
[2019-07-26] MEDS ORDERED: ALBUTEROL SO4 2.5/IPRATROPIUM 0.5 INH SOL 3 ML VIAL.NEB. NEB ONE ×2 (10:06→10:24)
[2019-07-26] MEDS ORDERED: methylPREDNISolone NA SUCC 125 MG/2 ML VIAL IVPUSH ONE (10:06)
[2019-07-26] MEDS ORDERED: methylPREDNISolone NA SUCC 125 MG/2 ML VIAL ONE (10:24)
[2019-07-26 10:57] LABS: BASO % 0.8 % (0-2.0); EOS % 3.1 % (0-4.5); HEMATOCRIT 23.5 % (32.4-45.2); HEMOGLOBIN 7.4 GM/dL (10.7-15.3); LYMPH % 16.9 % (8-40); MCHC 31.4 g/dl (32.0-36.0); MEAN CELL VOLUME 63.7 fl (80-96); MEAN PLT VOLUME 7.7 fl (7.5-11.1); MONO % 9.7 % (3.8-10.2); NEUT % 69.5 % (42.8-82.8); PLATELET COUNT 591 K/MM3 (134-434); RDW 18.1 % (11.6-15.6); WHITE BLOOD COUNT 7.7 K/mm3 (4.0-10.0)
[2019-07-26 11:13] LABS: INR 1.59 (0.83-1.09); PROTHROMBIN TIME (PATIENT) 18.9 SEC (9.7-13.0)
[2019-07-26 11:19] LABS: ALBUMIN 3.7 g/dl (3.4-5.0); BILIRUBIN,TOTAL 0.3 mg/dL (0.2-1); BLOOD UREA NITROGEN 21.6 mg/dL (7-18); CALCIUM 9.9 mg/dL (8.5-10.1); CREATININE 1.3 mg/dL (0.55-1.3); POTASSIUM 4.9 mmol/L (3.5-5.1); TOT PROT 7.5 g/dl (6.4-8.2)
[2019-07-26 12:11] LABS: EPI CELLS 2.9 /HPF (0-5/HPF); HYALINE CASTS 1 /lpf (0-8); URINE APPEARANCE CLEAR; URINE BACTERIA 2887.8 /hpf (NEGATIVE); URINE BILIRUBIN NEGATIVE (NEGATIVE); URINE COLOR YELLOW; URINE GLUCOSE (UA) NEGATIVE (NEGATIVE); URINE KETONE NEGATIVE (NEGATIVE); URINE LEUK ESTERASE 1+ (NEGATIVE); URINE NITRITE NEGATIVE (NEGATIVE); URINE PROTEIN NEGATIVE (NEGATIVE); URINE RBC 1 /hpf (0-4); URINE UROBILINOGEN 0.2 mg/dL (0.2-1.0); URINE WBC 11 /hpf (0-5)
[2019-07-26 12:31] LABS: MAGNESIUM 1.7 mg/dL (1.8-2.4); PHOSPHOROUS 3.5 mg/dL (2.5-4.9)
[2019-07-26 12:43] LABS: ANISOCYTOSIS 2+; MACROCYTOSIS 0; OVALOCYTE 1+; PLATELET ESTIMATE INCREASED; TARGET CELLS 1+
[2019-07-26] MEDS ORDERED: CEFTRIAXONE 1,000 MG in DEXTROSE 5%-WATER - 50 ML IVPB ONE (12:56)
[2019-07-26] MEDS ORDERED: ACETAMINOPHEN 325 MG TABLET (FP) PO PRN (12:58)
[2019-07-26] MEDS ORDERED: MAGNESIUM SULF 50% (8.12 MEQ/2 ML-1 GM VIAL) ONE (13:14)
[2019-07-26] MEDS ORDERED: CEFTRIAXONE 1 GM/50 ML BAG ONE (13:14)
[2019-07-26] MEDS ORDERED: MAGNESIUM SULF 50% (8.12 MEQ/2 ML-1 GM VIAL) IVPB ONE (13:45)
--- NOTE | 2019-07-26 14:34 | EKG ---
Test Reason : Blood Pressure : / mmHG Vent. Rate : 099 BPM Atrial Rate : 099 BPM P-R Int : 122 ms QRS Dur : 070 ms QT Int : 340 ms P-R-T Axes : 065 039 049 degrees QTc Int : 436 ms NORMAL SINUS RHYTHM NORMAL ECG WHEN COMPARED WITH ECG OF 10-MAR-2018 10:22, PREMATURE ATRIAL COMPLEXES ARE NO LONGER PRESENT Confirmed by MARTINA CORONADO MD ([id number]) on 07/26/2019 2:34:03 PM Referred By: Confirmed By:MARTINA CORONADO MD
--- NOTE | 2019-07-26 15:36 | ECHO ---
Name: PHILIPPE FITCH Exam:Adult Echocardiogram Study Date: 07/26/2019 02:31 PM Age: 78 yrs Reason For Study: CHECK EF Height: 60 in Weight: 176 lb BSA: 1.8 m2 MMode/2D Measurements & Calculations IVSd: 1.0 cm Ao root diam: 2.5 cm LVIDd: 4.5 cm LVIDs: 3.3 cm LVPWd: 1.0 cm EDV(Teich): 92.0 ml LVOT diam: 2.0 cm ESV(Teich): 45.2 ml Doppler Measurements & Calculations MV E max santos: 78.5 cm/sec Ao V2 max: 187.0 cm/sec MV A max santos: 92.3 cm/sec Ao max P.0 mmHg MV E/A: 0.85 MV dec time: 0.19 sec SOCORRO(V,D): 1.4 cm2 LV V1 max P.8 mmHg TR max santos: 248.9 cm/sec LV V1 max: 82.9 cm/sec TR max P.0 mmHg Med Peak E' Santos: 9.4 cm/sec Med E/e': 8.3 Lat Peak E' Santos: 7.7 cm/sec Lat E/e': 10.2 Left Ventricle There is borderline concentric left ventricular hypertrophy. The left ventricle is normal in size. Ej ection Fraction = 65%. The transmitral spectral Doppler flow pattern is suggestive of impaired LV relaxation . The left ventricular wall motion is normal. Right Ventricle The right ventricular systolic function is normal. Atria The right atrium is mildly dilated. Mitral Valve There is mild mitral valve thickening. There is trace mitral regurgitation. Tricuspid Valve There is moderate tricuspid regurgitation. Aortic Valve There is mild to moderate aortic valve thickening. There is mild aortic sclerosis.;. Pulmonic Valve The pulmonic valve is not well visualized. Great Vessels The aortic root is normal size. Pericardium/Pleura There is no pericardial effusion. Interpretation Summary There is mild to moderate aortic valve thickening. There is mild aortic sclerosis.; There is moderate tricuspid regurgitation. Ejection Fraction = 65%. The transmitral spectral Doppler flow pattern is suggestive of impaired LV relaxation. There is borderline concentric left ventricular hypertrophy. The left ventricle is normal in size. The left ventricular wall motion is normal. The right ventricular systolic function is normal. The right atrium is mildly dilated. There is mild mitral valve thickening. There is trace mitral regurgitation. The pulmonic valve is not well visualized. The aortic root is normal size. There is no pericardial effusion. Sammy Mendoza MD 07/26/2019 03:36 PM
--- NOTE | 2019-07-26 15:53 | CON.CARD ---
Consult Consult Specialty:: Cardiology Referred by:: Medicine Reason for Consultation:: shortness of breath - History of Present Illness Chief Complaint: shortness of breath, weakness History of Present Illness: 78F h/o COPD, asthma (on PRN home O2), anemia, DVT/PE, breast ca, colon ca, ovarian ca, HTN, HLD, DM p/w shortness of breath, lightheadedness, presyncope and weakness for the last two weeks, worse in the last day. Also felt nauseated like food couldn't go down. No palps, chest pain. No cardiac hx. - Past Medical History Cardio/Vascular: Yes: HTN. No: AFIB Pulmonary: Yes: Asthma, COPD Endocrine: Yes: Diabetes Mellitus - Alcohol/Substance Use Hx Alcohol Use: No - Smoking History Smoking history: Never smoked Have you smoked in the past 12 months: No If you are a former smoker, when did you quit?: 10yrs ago - Social History History of Recent Travel: No Home Medications - Allergies Allergies/Adverse Reactions: Allergies Allergy/AdvReac Type Severity Reaction Status Date / Time No Known Allergies Allergy Unverified 11/23/16 18:42 - Home Medications Home Medications: Ambulatory Orders Albuterol Sulfate [Proair Hfa] 8.5 gm IH DAILY 03/10/18 Amlodipine Besylate 10 mg PO DAILY 03/10/18 Folic Acid - 1 mg PO DAILY 03/10/18 Insulin Glargine,Hum.rec.anlog [Basaglar Kwikpen U-100] 45 unit SQ DAILY Lisinopril 20 mg PO DAILY 03/10/18 Montelukast Na [Singulair -] 10 mg PO HS 03/10/18 Simvastatin 10 mg PO HS 03/10/18 Sitagliptin Phos/Metformin HCl [Janumet 50-1,000 mg Tablet] 1 each PO BID Acetaminophen [Tylenol .Regular Strength -] 650 mg PO Q4H PRN tablet 03/18/18 Docusate Sodium [Colace -] 100 mg PO TID capsule 03/18/18 Albuterol 0.083% Nebulizer Jazmine [Ventolin 0.083% Nebulizer Soln -] 1 amp NEB Q4H PRN 07/26/19 Fluticasone/Salmeterol [Advair 250-50 Diskus] 1 inh PO DAILY 07/26/19 Prednisone 20 mg PO DAILY 07/26/19 Ranitidine HCl 150 mg PO BID 07/26/19 Rivaroxaban [Xarelto -] 20 mg PO DAILY 07/26/19 Theophylline Anhydrous [Haim-24] 400 mg PO DAILY 07/26/19 Family Medical History Family History: Unremarkable Review of Systems - Review of Systems Constitutional: reports: No Symptoms Eyes: reports: No Symptoms HENT: reports: No Symptoms Neck: reports: No Symptoms Cardiovascular: reports: No Symptoms Respiratory: reports: No Symptoms Gastrointestinal: reports: Nausea Genitourinary: reports: No Symptoms Musculoskeletal: reports: No Symptoms Integumentary: reports: No Symptoms Neurological: reports: No Symptoms Endocrine: reports: No Symptoms Hematology/Lymphatic: reports: No Symptoms Psychiatric: reports: No Symptoms Vital Signs: Vital Signs Temperature 99 F 07/26/19 14:02 Pulse Rate 112 H 07/26/19 14:02 Respiratory Rate 22 H 07/26/19 14:02 Blood Pressure 137/68 07/26/19 14:02 O2 Sat by Pulse Oximetry (%) 97 07/26/19 13:12 Constitutional: Yes: No Distress, Calm Eyes: Yes: Conjunctiva Clear, EOM Intact HENT: Yes: Atraumatic, Normocephalic Neck: Yes: Supple, Trachea Midline Respiratory: Yes: Regular, CTA Bilaterally Gastrointestinal: Yes: Normal Bowel Sounds, Soft Cardiovascular: Yes: Regular Rate and Rhythm JVD: No Heart Sounds: Yes: S1, S2 Extremities: No: Cold Edema: No Integumentary: No: Jaundice Neurological: Yes: Alert, Oriented Psychiatric: No: Agitated - Other Data Labs, Other Data: CBC, BMP 07/26/19 10:30 07/26/19 10:30 INR, PTT INR 1.59 (0.83-1.09) H 07/26/19 10:30 Troponin, BNP 07/26/19 10:30 Troponin I < 0.02 Troponin, BNP 07/26/19 10:30 Troponin I < 0.02 Assessment/Plan echo 2018 nl LV/RV function, mild MR, mild TR CXR: no congestion EKG sinus, nl intervals, no ischemic changes tele: sinus sob, weakness - likely in setting of anemia - trop neg, EKG no signs ACS - echo pending anemia - receiving transfusion of PRBC - manage per primary DVT/PE - was on xarelto, holding in setting of anemia - manage per primary HTN - stable on home meds, continue
[2019-07-26] MEDS: INSULIN SLIDING SCALE (NOVOLOG) 1 VIAL SQ SCH ×2 (17:29→21:41)
[2019-07-26 19:12] VITALS: BMI 28.8
[2019-07-26 19:14] LABS: N-TERMINAL BNP 33.3 pg/ml (5-450)
[2019-07-26] MEDS: ALBUTEROL SO4 0.083% IH SOL 2.5 MG/3 ML VIAL.NEB. NEB PRN (20:31)
[2019-07-26] MEDS: ATORVASTATIN CA 10 MG TABLET (FP) PO SCH (21:41)
[2019-07-26] MEDS: MONTELUKAST NA 10 MG TABLET PO SCH (21:41)
[2019-07-26] MEDS: BUDESONIDE/FORMETEROL FUMARATE 80/4.5 mcg INHALER IH SCH (23:06)
[2019-07-27] MEDS: INSULIN SLIDING SCALE (NOVOLOG) 1 VIAL SQ SCH ×4 (06:32→21:27)
[2019-07-27] MEDS: INSULIN (LEVEMIR) 100 UNITS/ML UNITS SQ SCH (06:33)
[2019-07-27] MEDS: amLODIPine BESYLATE 10 MG TABLET (FP) PO SCH (09:36)
[2019-07-27] MEDS: FOLIC ACID 1 MG TABLET (FP) PO SCH (09:36)
[2019-07-27] MEDS: LISINOPRIL 20 MG TABLET (FP) PO SCH (09:36)
[2019-07-27] MEDS: BUDESONIDE/FORMETEROL FUMARATE 80/4.5 mcg INHALER IH SCH ×2 (09:37→21:27)
[2019-07-27] MEDS ORDERED: FLU VACCINE QUAD 60 MCG/0.5 ML (MDV 19-20) IM ONE (10:00)
--- NOTE | 2019-07-27 10:08 | PN ---
Progress Note, Physician Chief Complaint: NO CP or SOB TELE: 5 beats NSVT - Current Medication List Current Medications: Active Medications Acetaminophen (Tylenol -) 650 mg PO Q4H PRN PRN Reason: PAIN LEVEL 1-5 Last Admin: 07/26/19 23:12 Dose: 650 mg Albuterol Sulfate (Ventolin 0.083% Nebulizer Soln -) 1 amp NEB Q6H PRN PRN Reason: SHORT OF BREATH/WHEEZING Last Admin: 07/26/19 20:31 Dose: 1 amp Amlodipine Besylate (Norvasc -) 10 mg PO DAILY COUNTS INCLUDE 234 BEDS AT THE [facility] Last Admin: 07/27/19 09:36 Dose: 10 mg Atorvastatin Calcium (Lipitor -) 10 mg PO HS COUNTS INCLUDE 234 BEDS AT THE [facility] Last Admin: 07/26/19 21:41 Dose: 10 mg Budesonide/Formoterol Fumarate (Symbicort 80/4.5mcg -) 2 puff IH BID COUNTS INCLUDE 234 BEDS AT THE [facility] Last Admin: 07/27/19 09:37 Dose: 2 puff Folic Acid (Folic Acid -) 1 mg PO DAILY COUNTS INCLUDE 234 BEDS AT THE [facility] Last Admin: 07/27/19 09:36 Dose: 1 mg Insulin Aspart (Novolog Vial Sliding Scale -) 1 vial SQ [facility] COUNTS INCLUDE 234 BEDS AT THE [facility]; Protocol Last Admin: 07/27/19 06:32 Dose: Not Given Insulin Detemir (Levemir Vial) 45 units SQ AM COUNTS INCLUDE 234 BEDS AT THE [facility] Last Admin: 07/27/19 06:33 Dose: 45 units Lisinopril (Prinivil) 20 mg PO DAILY COUNTS INCLUDE 234 BEDS AT THE [facility] Last Admin: 07/27/19 09:36 Dose: 20 mg Montelukast Sodium (Singulair -) 10 mg PO [facility] Last Admin: 07/26/19 21:41 Dose: 10 mg Theophylline (Haim-24) 400 mg PO DAILY COUNTS INCLUDE 234 BEDS AT THE [facility] - Objective Vital Signs: Vital Signs Temperature 98 F 07/27/19 09:00 Pulse Rate 98 H 07/27/19 09:00 Respiratory Rate 18 07/27/19 09:00 Blood Pressure 120/74 07/27/19 09:00 O2 Sat by Pulse Oximetry (%) 97 07/26/19 22:00 Constitutional: Yes: No Distress, Calm Cardiovascular: Yes: Regular Rate and Rhythm Respiratory: Yes: Other (decreased breath sounds b/l) Gastrointestinal: Yes: Soft Edema: No Neurological: Yes: Alert, Oriented ...Motor Strength: WNL Labs: CBC, BMP 07/26/19 10:30 07/26/19 10:30 INR, PTT INR 1.59 (0.83-1.09) H 07/26/19 10:30 - ....Imaging EKG: Image Reviewed Assessment/Plan Assessment/Plan echo 2017 nl LV/RV function, mild MR, mild TR CXR: no congestion EKG sinus, nl intervals, no ischemic changes tele: sinus, short NSVT sob, weakness - likely in setting of anemia - trop neg, EKG no signs ACS - echo normal LVEF anemia - receiving transfusion of PRBC - manage per primary 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
[2019-07-27 10:21] LABS: BASO % 1.7 % (0-2.0); HEMATOCRIT 27.5 % (32.4-45.2); HEMOGLOBIN 8.8 GM/dL (10.7-15.3); LYMPH % 6.7 % (8-40); MCH 21.2 pg (25.7-33.7); MEAN CELL VOLUME 66.3 fl (80-96); MONO % 8.1 % (3.8-10.2); NEUT % 83.5 % (42.8-82.8); PLATELET COUNT 578 K/MM3 (134-434); RBC 4.15 M/mm3 (3.60-5.2); RDW 20.2 % (11.6-15.6); WHITE BLOOD COUNT 17.7 K/mm3 (4.0-10.0)
[2019-07-27 10:53] LABS: ALBUMIN 3.7 g/dl (3.4-5.0); BILIRUBIN,TOTAL 0.3 mg/dL (0.2-1); BLOOD UREA NITROGEN 26.3 mg/dL (7-18); CALCIUM 9.8 mg/dL (8.5-10.1); CREATININE 1.2 mg/dL (0.55-1.3); MAGNESIUM 2.1 mg/dL (1.8-2.4); PHOSPHOROUS 3.4 mg/dL (2.5-4.9); POTASSIUM 5.5 mmol/L (3.5-5.1); TOT PROT 7.6 g/dl (6.4-8.2)
--- NOTE | 2019-07-27 10:57 | HP ---
Admitting History and Physical - Primary Care Physician PCP: Edilson Day - Admission History of Present Illness: Pt seen/ examined in tele. chart reviewed. pt feels better denies cp breathing better In summary 78F h/o COPD, asthma (on PRN home O2), anemia, DVT/PE, breast ca, colon ca, ovarian ca, HTN, HLD, DM p/w shortness of breath, lightheadedness, pre syncope and weakness for the last few weeks got one unit of PRBC Denies any blood in stools but also says dont watch stool for occult pending Xarelto held. Denies abd pain no fever/ chills History Source: Patient, Medical Record Limitations to Obtaining History: No Limitations - Past Medical History Cardiovascular: Yes: HTN. No: AFIB Pulmonary: Yes: Asthma, COPD Heme/Onc: Yes: Anemia Endocrine: Yes: Diabetes Mellitus - Smoking History Smoking history: Never smoked Have you smoked in the past 12 months: No If you are a former smoker, when did you quit?: 10yrs ago - Alcohol/Substance Use Hx Alcohol Use: No - Social History History of Recent Travel: No Home Medications - Allergies Allergies/Adverse Reactions: Allergies Allergy/AdvReac Type Severity Reaction Status Date / Time No Known Allergies Allergy Unverified 11/23/16 18:42 - Home Medications Home Medications: Ambulatory Orders Albuterol Sulfate [Proair Hfa] 8.5 gm IH DAILY 03/10/18 Amlodipine Besylate 10 mg PO DAILY 03/10/18 Folic Acid - 1 mg PO DAILY 03/10/18 Insulin Glargine,Hum.rec.anlog [Jaydaaglrain Olguin U-100] 45 unit SQ DAILY Lisinopril 20 mg PO DAILY 03/10/18 Montelukast Na [Singulair -] 10 mg PO HS 03/10/18 Simvastatin 10 mg PO HS 03/10/18 Sitagliptin Phos/Metformin HCl [Janumet 50-1,000 mg Tablet] 1 each PO BID Acetaminophen [Tylenol .Regular Strength -] 650 mg PO Q4H PRN tablet 03/18/18 Docusate Sodium [Colace -] 100 mg PO TID capsule 03/18/18 Albuterol 0.083% Nebulizer Jazmine [Ventolin 0.083% Nebulizer Soln -] 1 amp NEB Q4H PRN 07/26/19 Fluticasone/Salmeterol [Advair 250-50 Diskus] 1 inh PO DAILY 07/26/19 Prednisone 20 mg PO DAILY 07/26/19 Ranitidine HCl 150 mg PO BID 07/26/19 Rivaroxaban [Xarelto -] 20 mg PO DAILY 07/26/19 Theophylline Anhydrous [Haim-24] 400 mg PO DAILY 07/26/19 Review of Systems Unable to obtain ROS, reason: see nome Physical Examination Vital Signs: Vital Signs Temperature 98 F 07/27/19 09:00 Pulse Rate 98 H 07/27/19 09:00 Respiratory Rate 18 07/27/19 09:00 Blood Pressure 120/74 07/27/19 09:00 O2 Sat by Pulse Oximetry (%) 97 07/26/19 22:00 Constitutional: Yes: No Distress, Calm Eyes: Yes: Conjunctiva Clear HENT: Yes: WNL Neck: Yes: Supple Cardiovascular: Yes: Regular Rate and Rhythm Respiratory: Yes: CTA Bilaterally Gastrointestinal: Yes: Soft Edema: No Neurological: Yes: Alert Psychiatric: Yes: Alert Labs: CBC, BMP 07/27/19 09:58 07/27/19 09:58 Imaging - Results Chest X-ray: Report Reviewed EKG: Report Reviewed (echo reviewed) Problem List - Problems (1) Symptomatic anemia Code(s): D64.9 - ANEMIA, UNSPECIFIED (2) UTI (urinary tract infection) Code(s): N39.0 - URINARY TRACT INFECTION, SITE NOT SPECIFIED Qualifiers: Urinary tract infection type: acute cystitis Hematuria presence: without hematuria Qualified Code(s): N30.00 - Acute cystitis without hematuria (3) COPD (chronic obstructive pulmonary disease) Code(s): J44.9 - CHRONIC OBSTRUCTIVE PULMONARY DISEASE, UNSPECIFIED Qualifiers: (4) Diastolic CHF Code(s): I50.30 - UNSPECIFIED DIASTOLIC (CONGESTIVE) HEART FAILURE Qualifiers: Qualified Code(s): I50.32 - Chronic diastolic (congestive) heart failure (5) HTN (hypertension) Code(s): I10 - ESSENTIAL (PRIMARY) HYPERTENSION (6) IDDM (insulin dependent diabetes mellitus) Code(s): E11.9 - TYPE 2 DIABETES MELLITUS WITHOUT COMPLICATIONS; Z79.4 - OUTPLACEMENT CONSULTANT (CURRENT) USE OF INSULIN Assessment/Plan Monitor tele transfuse prn abx f/u cultures stool - occult blood pending hold vignesh for now will follow d/w RN also
[2019-07-27] MEDS: THEOPHYLLINE ANHYDROUS 200 MG CAP.ER.24H PO SCH (12:01)
--- NOTE | 2019-07-27 12:19 | CON.PULM ---
Consult Consult Specialty:: PULMONARY Referred by:: ANGEL Reason for Consultation:: SOB - History of Present Illness Chief Complaint: SOB History of Present Illness: 78YOM with h/o COPD and asthma on home O2 ,never intubated, takes ProAir, Advair, Prednisone 20 mg/day, Singulair, Spiriva, and was also recently started on Theophylline), severe anemia (diagnosed by her OP providers recently and has not yet had heme workup), DVT (on Xarelto), breast CA, colon CA, ovarian CA, HTN , HLD, and IDDM who p/w SOB, lightheadedness and presyncope, and generalized weakness for the past day. She notes intermittently feeling like this for several days but this morning is much worse. She also has been having diarrhea and nausea, but denies CP, back pain, AP, dysuria, leg pain/swelling, headache, vision changes, or other symptoms. 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 No: AFIB Pulmonary: Yes: Asthma, COPD Endocrine: Yes: Diabetes Mellitus - Alcohol/Substance Use Hx Alcohol Use: No - Smoking History Smoking history: Never smoked Have you smoked in the past 12 months: No If you are a former smoker, when did you quit?: 10yrs ago - Social History History of Recent Travel: No Home Medications - Allergies Allergies/Adverse Reactions: Allergies Allergy/AdvReac Type Severity Reaction Status Date / Time No Known Allergies Allergy Unverified 11/23/16 18:42 - Home Medications Home Medications: Ambulatory Orders Albuterol Sulfate [Proair Hfa] 8.5 gm IH DAILY 03/10/18 Amlodipine Besylate 10 mg PO DAILY 03/10/18 Folic Acid - 1 mg PO DAILY 03/10/18 Insulin Glargine,Hum.rec.anlog [Basaglar Kwikpen U-100] 45 unit SQ DAILY Lisinopril 20 mg PO DAILY 03/10/18 Montelukast Na [Singulair -] 10 mg PO HS 03/10/18 Simvastatin 10 mg PO HS 03/10/18 Sitagliptin Phos/Metformin HCl [Janumet 50-1,000 mg Tablet] 1 each PO BID Acetaminophen [Tylenol .Regular Strength -] 650 mg PO Q4H PRN tablet 03/18/18 Docusate Sodium [Colace -] 100 mg PO TID capsule 03/18/18 Albuterol 0.083% Nebulizer Jazmine [Ventolin 0.083% Nebulizer Soln -] 1 amp NEB Q4H PRN 07/26/19 Fluticasone/Salmeterol [Advair 250-50 Diskus] 1 inh PO DAILY 07/26/19 Prednisone 20 mg PO DAILY 07/26/19 Ranitidine HCl 150 mg PO BID 07/26/19 Rivaroxaban [Xarelto -] 20 mg PO DAILY 07/26/19 Theophylline Anhydrous [Haim-24] 400 mg PO DAILY 07/26/19 Review of Systems - Review of Systems Constitutional: denies: Fever, Loss of Appetite Eyes: denies: Blurred Vision HENT: denies: Difficult Swallowing Neck: denies: Decreased ROM Cardiovascular: denies: Chest Pain Respiratory: reports: Exercise Intolerance, SOB on Exertion. denies: Hemoptysis , Wheezing Gastrointestinal: reports: Diarrhea Genitourinary: denies: Burning Physical Exam Vital Sings: Vital Signs Temperature 98 F 07/27/19 09:00 Pulse Rate 98 H 07/27/19 09:00 Respiratory Rate 18 07/27/19 09:00 Blood Pressure 120/74 07/27/19 09:00 O2 Sat by Pulse Oximetry (%) 97 07/26/19 22:00 Constitutional: Yes: Calm Eyes: Yes: EOM Intact HENT: Yes: Normocephalic Neck: Yes: Trachea Midline Cardiovascular: Yes: Regular Rate and Rhythm, S1, S2 Respiratory: Yes: CTA Bilaterally Gastrointestinal: Yes: Normal Bowel Sounds Edema: No Neurological: Yes: Alert Labs: CBC, BMP 07/27/19 09:58 07/27/19 09:58 Imaging - Results Chest X-ray: Report Reviewed, Image Reviewed Problem List - Problems (1) Dyspnea Code(s): R06.00 - DYSPNEA, UNSPECIFIED Qualifiers: Dyspnea type: unspecified Qualified Code(s): R06.00 - Dyspnea, unspecified (2) Symptomatic anemia Code(s): D64.9 - ANEMIA, UNSPECIFIED (3) Breast CA Code(s): C50.919 - MALIGNANT NEOPLASM OF UNSP SITE OF UNSPECIFIED FEMALE BREAST (4) COPD (chronic obstructive pulmonary disease) Code(s): J44.9 - CHRONIC OBSTRUCTIVE PULMONARY DISEASE, UNSPECIFIED Qualifiers: (5) Diastolic CHF Code(s): I50.30 - UNSPECIFIED DIASTOLIC (CONGESTIVE) HEART FAILURE Qualifiers: Qualified Code(s): I50.32 - Chronic diastolic (congestive) heart failure (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
[2019-07-27] MEDS ORDERED: cefTRIAXone SODIUM 1 GM VIAL ONE (12:59)
[2019-07-27] MEDS ORDERED: DEXTROSE 5%-WATER - 50 ML IVPB ONE (12:59)
[2019-07-27] MEDS: CEFTRIAXONE 1 GM in DEXTROSE 5%-WATER - 50 ML IVPB SCH (13:14)
[2019-07-27] MEDS: ALBUTEROL SO4 0.083% IH SOL 2.5 MG/3 ML VIAL.NEB. NEB PRN (20:04)
[2019-07-27] MEDS ORDERED: INSULIN (NOVOLOG) ASPART 100 UNITS/ML 10ML VIAL ONE (21:08)
[2019-07-27] MEDS: ATORVASTATIN CA 10 MG TABLET (FP) PO SCH (21:27)
[2019-07-27] MEDS: MONTELUKAST NA 10 MG TABLET PO SCH (21:27)
[2019-07-28] MEDS: INSULIN SLIDING SCALE (NOVOLOG) 1 VIAL SQ SCH ×4 (06:11→21:57)
[2019-07-28] MEDS: INSULIN (LEVEMIR) 100 UNITS/ML UNITS SQ SCH (06:12)
--- NOTE | 2019-07-28 06:50 | PN ---
Progress Note, Physician Chief Complaint: denies SOB, feeling better No CP K+ has been upper limit normal last 2 days. TELE: NSR, rare PVCs, a very short self limited burst PSVT (5 beats) - Current Medication List Current Medications: Active Medications Acetaminophen (Tylenol -) 650 mg PO Q4H PRN PRN Reason: PAIN LEVEL 1-5 Last Admin: 07/26/19 23:12 Dose: 650 mg Albuterol Sulfate (Ventolin 0.083% Nebulizer Soln -) 1 amp NEB Q6H PRN PRN Reason: SHORT OF BREATH/WHEEZING Last Admin: 07/27/19 20:04 Dose: 1 amp Amlodipine Besylate (Norvasc -) 10 mg PO DAILY [facility] Last Admin: 07/27/19 09:36 Dose: 10 mg Atorvastatin Calcium (Lipitor -) 10 mg PO HS [facility] Last Admin: 07/27/19 21:27 Dose: 10 mg Budesonide/Formoterol Fumarate (Symbicort 80/4.5mcg -) 2 puff IH BID [facility] Last Admin: 07/27/19 21:27 Dose: 2 puff Folic Acid (Folic Acid -) 1 mg PO DAILY [facility] Last Admin: 07/27/19 09:36 Dose: 1 mg Ceftriaxone Sodium 1 gm/ (Dextrose) 50 mls @ 100 mls/hr IVPB DAILY [facility]; Protocol Last Admin: 07/27/19 13:14 Dose: 100 mls/hr Insulin Aspart (Novolog Vial Sliding Scale -) 1 vial SQ ACHS [facility]; Protocol Last Admin: 07/28/19 06:11 Dose: Not Given Insulin Detemir (Levemir Vial) 45 units SQ AM [facility] Last Admin: 07/28/19 06:12 Dose: 45 units Lisinopril (Prinivil) 20 mg PO DAILY [facility] Last Admin: 07/27/19 09:36 Dose: 20 mg Montelukast Sodium (Singulair -) 10 mg PO HS [facility] Last Admin: 07/27/19 21:27 Dose: 10 mg Theophylline (Haim-24) 400 mg PO DAILY [facility] Last Admin: 07/27/19 12:01 Dose: 400 mg - Objective Vital Signs: Vital Signs Temperature 98.3 F 07/28/19 05:00 Pulse Rate 88 07/28/19 05:00 Respiratory Rate 18 07/28/19 05:00 Blood Pressure 99/69 10/05/19 05:00 O2 Sat by Pulse Oximetry (%) 98 07/27/19 21:00 Constitutional: Yes: No Distress Cardiovascular: Yes: Regular Rate and Rhythm Respiratory: Yes: Other (decreased breath sounds b/l; no active wheezing. No rales.) Gastrointestinal: Yes: Soft (NT) Edema: No Neurological: Yes: Alert, Oriented ...Motor Strength: WNL Labs: INR, PTT INR 1.59 (0.83-1.09) H 07/26/19 10:30 Laboratory Tests 07/28/19 07/28/19 06:12 06:12 WBC 11.5 H Hgb 8.6 L Plt Count 567 H Sodium 139 Potassium 5.4 H BUN 25.2 H Creatinine 1.1 - ....Imaging EKG: Image Reviewed Assessment/Plan Assessment/Plan echo 2017 nl LV/RV function, mild MR, mild TR CXR: no congestion EKG sinus, nl intervals, no ischemic changes tele: sinus, short NSVT, short self limited run PSVT SOB: - likely in setting of anemia - trop neg, EKG no signs ACS - echo normal LVEF Anemia: - receiving transfusion of PRBC - manage per primary DVT/PE: - was on xarelto, holding in setting of anemia - manage per primary, stool guaiac pending. HTN - stable on home meds, continue NSVT/PSVT normal EF: -Neg enzymes -May be due to albuterol -Keep K+ and Mg2+ repleted ( 4/2 are targets) -Cont tele - If PSVT/ NSVT persist/recur or become more prolonged, can change Amlodipine to Diltiazem CD 120mg for both BP effect and to control PSVT/ NSVT. Would avoid beta blockers with her sig COPD/Asthma hx.
[2019-07-28 06:59] LABS: BASO % 0.2 % (0-2.0); EOS % 1.5 % (0-4.5); HEMATOCRIT 27.4 % (32.4-45.2); HEMOGLOBIN 8.6 GM/dL (10.7-15.3); LYMPH % 7.2 % (8-40); MCH 21.2 pg (25.7-33.7); MCHC 31.4 g/dl (32.0-36.0); MEAN CELL VOLUME 67.6 fl (80-96); MEAN PLT VOLUME 8.2 fl (7.5-11.1); MONO % 5.5 % (3.8-10.2); NEUT % 85.6 % (42.8-82.8); PLATELET COUNT 567 K/MM3 (134-434); RBC 4.06 M/mm3 (3.60-5.2); RDW 20.4 % (11.6-15.6); WHITE BLOOD COUNT 11.5 K/mm3 (4.0-10.0)
[2019-07-28 07:12] LABS: ALBUMIN 3.5 g/dl (3.4-5.0); BILIRUBIN,TOTAL 0.2 mg/dL (0.2-1); BLOOD UREA NITROGEN 25.2 mg/dL (7-18); CALCIUM 9.6 mg/dL (8.5-10.1); CREATININE 1.1 mg/dL (0.55-1.3); POTASSIUM 5.4 mmol/L (3.5-5.1); TOT PROT 7.1 g/dl (6.4-8.2)
[2019-07-28] MEDS ORDERED: PT OWN MED DRAWER 7, Y5N ONE ×2 (09:35→20:21)
[2019-07-28] MEDS ORDERED: cefTRIAXone SODIUM 1 GM VIAL ONE (09:35)
[2019-07-28] MEDS ORDERED: DEXTROSE 5%-WATER - 50 ML IVPB ONE (09:35)
[2019-07-28] MEDS: amLODIPine BESYLATE 10 MG TABLET (FP) PO SCH (09:43)
[2019-07-28] MEDS: FOLIC ACID 1 MG TABLET (FP) PO SCH (09:43)
[2019-07-28] MEDS: LISINOPRIL 20 MG TABLET (FP) PO SCH (09:43)
[2019-07-28] MEDS: CEFTRIAXONE 1 GM in DEXTROSE 5%-WATER - 50 ML IVPB SCH (09:44)
[2019-07-28] MEDS: BUDESONIDE/FORMETEROL FUMARATE 80/4.5 mcg INHALER IH SCH ×2 (09:44→22:02)
[2019-07-28] MEDS: THEOPHYLLINE ANHYDROUS 200 MG CAP.ER.24H PO SCH (09:44)
--- NOTE | 2019-07-28 11:11 | PN ---
Progress Note (short form) - Note Progress Note: PULMONARY VSS/AFEBRILE OOB TO CHAIR SUBJECTIVE IMPROVEMENT ANICTERIC CLEAR B/L BREATH SOUNDS S1S2 BS+ OBESE NO EDEMA LABS/MEDS/NOTES REVIEWED HGB 8.6 GMS HAUSER LIKELY DUE TO ANEMIA FAVOR GI LOSSES GIVEN PAST HISTORY COPD/ASTHMA NOT IN EXACERBATION IMPROVED POST TRANSFUSION MULTIPLE CO-MORBID CONDITIONS INCLUDING THREE PAST NEOPLASMS NO OBJECTION TO EGD/COLONOSCOPY FROM A PULMONARY STANDPOINT KEEP HGB GREATER THAN 8GMS CONTINUE BRONCHODILATORS/O2/GLYCEMIC CONTROL GRAM NEGATIVE BACTERIA IN URINE /ON ANTIBIOTICS STOOL GUIAC/GI PUJA MENSAH MD Problem List - Problems (1) Dyspnea Code(s): R06.00 - DYSPNEA, UNSPECIFIED Qualifiers: Dyspnea type: unspecified Qualified Code(s): R06.00 - Dyspnea, unspecified (2) Symptomatic anemia Code(s): D64.9 - ANEMIA, UNSPECIFIED (3) Breast CA Code(s): C50.919 - MALIGNANT NEOPLASM OF UNSP SITE OF UNSPECIFIED FEMALE BREAST (4) COPD (chronic obstructive pulmonary disease) Code(s): J44.9 - CHRONIC OBSTRUCTIVE PULMONARY DISEASE, UNSPECIFIED Qualifiers: (5) Diastolic CHF Code(s): I50.30 - UNSPECIFIED DIASTOLIC (CONGESTIVE) HEART FAILURE Qualifiers: Qualified Code(s): I50.32 - Chronic diastolic (congestive) heart failure (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
[2019-07-28] MEDS ORDERED: SODIUM POLYSTYRENE SULFONATE 15 GM/60 ML BOTTLE PO ONE (11:50)
--- NOTE | 2019-07-28 12:26 | PN ---
Progress Note (short form) - Note Progress Note: feels SOB on transferring from bed to chair No cough Vital Signs - 24 hr 07/27/19 07/27/19 07/27/19 14:10 17:00 21:00 Temperature 98.2 F 98.5 F 98.9 F Pulse Rate 102 H 97 H 95 H Respiratory 18 20 18 Rate Blood Pressure 112/66 107/65 101/48 L O2 Sat by Pulse 98 Oximetry (%) 07/28/19 07/28/19 07/28/19 01:00 05:00 08:31 Temperature 98.6 F 98.3 F Pulse Rate 93 H 88 Respiratory 20 18 17 Rate Blood Pressure 101/52 L 99/69 O2 Sat by Pulse 98 Oximetry (%) Current Medications Generic Name Dose Route Start Last Admin Trade Name Freq PRN Reason Stop Dose Admin Acetaminophen 650 mg 07/26/19 12:58 07/26/19 23:12 Tylenol - PO 650 mg Q4H PRN Administration PAIN LEVEL 1-5 Albuterol Sulfate 1 amp 07/26/19 20:18 07/27/19 20:04 Ventolin 0.083% Nebulizer Soln - NEB 1 amp Q6H PRN Administration SHORT OF BREATH/WHEEZING Amlodipine Besylate 10 mg 07/27/19 10:00 07/28/19 09:43 Norvasc - PO 10 mg DAILY ZAKI Administration Atorvastatin Calcium 10 mg 07/26/19 22:00 07/27/19 21:27 Lipitor - PO 10 mg HS ZAKI Administration Budesonide/Formoterol Fumarate 2 puff 07/26/19 22:00 07/28/19 09:44 Symbicort 80/4.5mcg - IH 2 puff BID ZAKI Administration Folic Acid 1 mg 07/27/19 10:00 07/28/19 09:43 Folic Acid - PO 1 mg DAILY ZAKI Administration Ceftriaxone Sodium 1 gm/ 50 mls @ 100 mls/hr 07/27/19 13:00 07/28/19 09:44 Dextrose IVPB 100 mls/hr DAILY ZAKI Administration Protocol Insulin Aspart 1 vial 07/26/19 16:30 07/28/19 11:35 Novolog Vial Sliding Scale - SQ Not Given ACHS [facility] Protocol Insulin Detemir 45 units 07/27/19 07:00 07/28/19 06:12 Levemir Vial SQ 45 units AM ZAKI Administration Lisinopril 20 mg 07/27/19 10:00 07/28/19 09:43 Prinivil PO 20 mg DAILY ZAKI Administration Montelukast Sodium 10 mg 07/26/19 22:00 07/27/19 21:27 Singulair - PO 10 mg HS ZAKI Administration Theophylline 400 mg 07/27/19 10:00 07/28/19 09:44 Haim-24 PO 400 mg DAILY ZAKI Administration Laboratory Results - last 24 hr 07/27/19 07/27/19 07/28/19 16:26 20:57 05:50 WBC RBC Hgb Hct MCV MCH MCHC RDW Plt Count MPV Absolute Neuts (auto) Neutrophils % Lymphocytes % Monocytes % Eosinophils % Basophils % Nucleated RBC % Sodium Potassium Chloride Carbon Dioxide Anion Gap BUN Creatinine Est GFR (CKD-EPI)AfAm Est GFR (CKD-EPI)NonAf POC Glucometer 137 185 111 Random Glucose Calcium Total Bilirubin AST ALT Alkaline Phosphatase Total Protein Albumin 07/28/19 07/28/19 07/28/19 06:12 06:12 11:31 WBC 11.5 H RBC 4.06 Hgb 8.6 L Hct 27.4 L MCV 67.6 L MCH 21.2 L MCHC 31.4 L RDW 20.4 H Plt Count 567 H MPV 8.2 Absolute Neuts (auto) 9.8 H Neutrophils % 85.6 H Lymphocytes % 7.2 L Monocytes % 5.5 Eosinophils % 1.5 D Basophils % 0.2 Nucleated RBC % 0 Sodium 139 Potassium 5.4 H Chloride 105 Carbon Dioxide 27 Anion Gap 6 L BUN 25.2 H Creatinine 1.1 Est GFR (CKD-EPI)AfAm 56.48 Est GFR (CKD-EPI)NonAf 48.73 POC Glucometer 115 Random Glucose 107 H Calcium 9.6 Total Bilirubin 0.2 AST 8 L ALT 11 L Alkaline Phosphatase 97 Total Protein 7.1 Albumin 3.5 Microbiology 07/26/19 11:50 Urine - Urine Clean Catch Urine Culture - Preliminary Escherichia Coli Group D Strep Or Entero Coccus S1S2 RRR Lungs decreased breath sounds no ronchi Abd- soft, NT no edema PLAN s/p 1 unit prbc GI eval pending Stool guaic pending-- has not had a bm since Potassium is elevated -- will give kayexalate monitor electrolytes UTI on iv antibiotics monitor Hb Problem List - Problems (1) COPD with acute exacerbation Code(s): J44.1 - CHRONIC OBSTRUCTIVE PULMONARY DISEASE W (ACUTE) EXACERBATION (2) Dyspnea Code(s): R06.00 - DYSPNEA, UNSPECIFIED Qualifiers: Dyspnea type: unspecified Qualified Code(s): R06.00 - Dyspnea, unspecified (3) Symptomatic anemia Code(s): D64.9 - ANEMIA, UNSPECIFIED (4) UTI (urinary tract infection) Code(s): N39.0 - URINARY TRACT INFECTION, SITE NOT SPECIFIED Qualifiers: Urinary tract infection type: acute cystitis Hematuria presence: without hematuria Qualified Code(s): N30.00 - Acute cystitis without hematuria (5) COPD (chronic obstructive pulmonary disease) Code(s): J44.9 - CHRONIC OBSTRUCTIVE PULMONARY DISEASE, UNSPECIFIED Qualifiers: (6) History of colon cancer Code(s): Z85.038 - PERSONAL HISTORY OF MALIGNANT NEOPLASM OF LARGE INTESTINE
--- NOTE | 2019-07-28 14:57 | CON.GI ---
Consult Consult Specialty:: GI Referred by:: Paloma Burciaga Reason for Consultation:: Iron deficiency anemia - History of Present Illness Chief Complaint: 78 F admitted with shortness of breath, Hgb 7.4 History of Present Illness: 78 F with history of breast ca (1998), ovarian ca (2004), colon ca (2013), pulmonary embolism on Xarelto before admission, admitted with shortness of breath, Hgb 7.4, microcytic indices and elevated platelet count. Pt has not had a colonoscopy since her colon resection. Interestingly her mother had kidney cancer but at an advanced age (80). Her grandmother also had breast cancer. Ms Robertson is an only child and has no siblings. 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 No: AFIB Pulmonary: Yes: Asthma, COPD Gastrointestinal: Yes: Cancer Reproductive: Yes: Other (ovarian cancer) Heme/Onc: Yes: Cancer (breast, ovary, colon), Other (taco) Endocrine: Yes: Diabetes Mellitus - Past Surgical History Past Surgical History: Yes: Colectomy, Hysterectomy, Mastectomy - Alcohol/Substance Use Hx Alcohol Use: No - Smoking History Smoking history: Never smoked Have you smoked in the past 12 months: No If you are a former smoker, when did you quit?: 10yrs ago - Social History History of Recent Travel: No Home Medications - Allergies Allergies/Adverse Reactions: Allergies Allergy/AdvReac Type Severity Reaction Status Date / Time No Known Allergies Allergy Unverified 11/23/16 18:42 - Home Medications Home Medications: Ambulatory Orders Albuterol Sulfate [Proair Hfa] 8.5 gm IH DAILY 03/10/18 Amlodipine Besylate 10 mg PO DAILY 03/10/18 Folic Acid - 1 mg PO DAILY 03/10/18 Insulin Glargine,Hum.rec.anlog [Basaglar Kwikpen U-100] 45 unit SQ DAILY Lisinopril 20 mg PO DAILY 03/10/18 Montelukast Na [Singulair -] 10 mg PO HS 03/10/18 Simvastatin 10 mg PO HS 03/10/18 Sitagliptin Phos/Metformin HCl [Janumet 50-1,000 mg Tablet] 1 each PO BID Acetaminophen [Tylenol .Regular Strength -] 650 mg PO Q4H PRN tablet 03/18/18 Docusate Sodium [Colace -] 100 mg PO TID capsule 03/18/18 Albuterol 0.083% Nebulizer Jazmine [Ventolin 0.083% Nebulizer Soln -] 1 amp NEB Q4H PRN 07/26/19 Fluticasone/Salmeterol [Advair 250-50 Diskus] 1 inh PO DAILY 07/26/19 Prednisone 20 mg PO DAILY 07/26/19 Ranitidine HCl 150 mg PO BID 07/26/19 Rivaroxaban [Xarelto -] 20 mg PO DAILY 07/26/19 Theophylline Anhydrous [Haim-24] 400 mg PO DAILY 07/26/19 Family Medical History Family Hx Cancer: Grandmother (maternal), Mother Physical Exam-GI Vital Signs: Vital Signs Temperature 98.9 F 07/28/19 14:40 Pulse Rate 95 H 07/28/19 14:40 Respiratory Rate 18 07/28/19 14:40 Blood Pressure 98/61 07/28/19 14:40 O2 Sat by Pulse Oximetry (%) 98 07/28/19 08:31 Constitutional: Yes: Obese Gastrointestinal Inspection: Yes: Hernia (umbilical hernia) ...Auscultate: Yes: Normoactive Bowel Sounds ...Palpate: Yes: Soft ...Rectal Exam: Yes: Deferred Labs: CBC, BMP 07/28/19 06:12 07/28/19 06:12 INR, PTT INR 1.59 (0.83-1.09) H 07/26/19 10:30 Imaging - Results Chest X-ray: Report Reviewed Ultrasound: Report Reviewed (cardiac echo, EF 65%) Problem List - Problems (1) Iron deficiency anemia Code(s): D50.9 - IRON DEFICIENCY ANEMIA, UNSPECIFIED (2) History of colon cancer Code(s): Z85.038 - PERSONAL HISTORY OF MALIGNANT NEOPLASM OF LARGE INTESTINE Assessment/Plan In a patient with a past colon cancer an iron deficiency anemia would strongly suggest a second primary. In this case, however, Ms Robertson had been on Xarelto intermittently for much of the past year and a half, and slow bleeding from a benign cause such as a large hiatal hernia or even her surgical anastomosis is a more hopeful possibility. Her ejection fraction is normal and Dr Esteban has cleared her for procedures from a pulmonary standpoint. Will prep her for EGD and colonoscopy for Tuesday. Consent discussion held with patient.
[2019-07-28] MEDS ORDERED: BISACODYL 5 MG TABLET.DR (FP) PO ONE (15:24)
[2019-07-28] MEDS: MONTELUKAST NA 10 MG TABLET PO SCH (21:57)
[2019-07-28] MEDS: ATORVASTATIN CA 10 MG TABLET (FP) PO SCH (21:57)
[2019-07-29] MEDS: INSULIN SLIDING SCALE (NOVOLOG) 1 VIAL SQ SCH ×4 (06:05→21:47)
[2019-07-29] MEDS: INSULIN (LEVEMIR) 100 UNITS/ML UNITS SQ SCH (06:08)
[2019-07-29 06:41] LABS: BASO % 0.6 % (0-2.0); EOS % 3.9 % (0-4.5); HEMATOCRIT 28.8 % (32.4-45.2); HEMOGLOBIN 9.2 GM/dL (10.7-15.3); LYMPH % 12.7 % (8-40); MCH 21.3 pg (25.7-33.7); MEAN CELL VOLUME 66.5 fl (80-96); MEAN PLT VOLUME 7.8 fl (7.5-11.1); MONO % 9.9 % (3.8-10.2); NEUT % 72.9 % (42.8-82.8); PLATELET COUNT 550 K/MM3 (134-434); RBC 4.33 M/mm3 (3.60-5.2); RDW 21.3 % (11.6-15.6); WHITE BLOOD COUNT 8.5 K/mm3 (4.0-10.0)
[2019-07-29 07:09] LABS: ALBUMIN 3.4 g/dl (3.4-5.0); BILIRUBIN,TOTAL 0.6 mg/dL (0.2-1); BLOOD UREA NITROGEN 19.8 mg/dL (7-18); CALCIUM 9.4 mg/dL (8.5-10.1); CREATININE 1.1 mg/dL (0.55-1.3); MAGNESIUM 1.8 mg/dL (1.8-2.4); POTASSIUM 4.4 mmol/L (3.5-5.1)
[2019-07-29] MEDS ORDERED: cefTRIAXone SODIUM 1 GM VIAL ONE (07:49)
[2019-07-29] MEDS ORDERED: DEXTROSE 5%-WATER - 50 ML IVPB ONE (07:49)
--- NOTE | 2019-07-29 09:11 | PN ---
Progress Note, Physician Chief Complaint: feels well; denies CP or SOB Denies palps TELE: NSR, rare PVCs History of Present Illness: BP running low end normal - Current Medication List Current Medications: Active Medications Acetaminophen (Tylenol -) 650 mg PO Q4H PRN PRN Reason: PAIN LEVEL 1-5 Last Admin: 07/26/19 23:12 Dose: 650 mg Albuterol Sulfate (Ventolin 0.083% Nebulizer Soln -) 1 amp NEB Q6H PRN PRN Reason: SHORT OF BREATH/WHEEZING Last Admin: 07/27/19 20:04 Dose: 1 amp Amlodipine Besylate (Norvasc -) 10 mg PO DAILY [facility] Last Admin: 07/28/19 09:43 Dose: 10 mg Atorvastatin Calcium (Lipitor -) 10 mg PO HS [facility] Last Admin: 07/28/19 21:57 Dose: 10 mg Budesonide/Formoterol Fumarate (Symbicort 80/4.5mcg -) 2 puff IH BID [facility] Last Admin: 07/28/19 22:02 Dose: 2 puff Folic Acid (Folic Acid -) 1 mg PO DAILY [facility] Last Admin: 07/28/19 09:43 Dose: 1 mg Ceftriaxone Sodium 1 gm/ (Dextrose) 50 mls @ 100 mls/hr IVPB DAILY [facility]; Protocol Last Admin: 07/28/19 09:44 Dose: 100 mls/hr Insulin Aspart (Novolog Vial Sliding Scale -) 1 vial SQ ACHS [facility]; Protocol Last Admin: 07/29/19 06:05 Dose: Not Given Insulin Detemir (Levemir Vial) 45 units SQ AM [facility] Last Admin: 07/29/19 06:08 Dose: 45 units Lisinopril (Prinivil) 20 mg PO DAILY [facility] Last Admin: 07/28/19 09:43 Dose: 20 mg Montelukast Sodium (Singulair -) 10 mg PO HS [facility] Last Admin: 07/28/19 21:57 Dose: 10 mg Polyethylene Glycol/Electrolytes (Golytely Solution -) 4,000 ml PO ONCE ONE Stop: 07/29/19 13:01 Theophylline (Haim-24) 400 mg PO DAILY [facility] Last Admin: 07/28/19 09:44 Dose: 400 mg - Objective Vital Signs: Vital Signs Temperature 98.6 F 07/29/19 08:44 Pulse Rate 98 H 07/29/19 08:44 Respiratory Rate 18 07/29/19 08:44 Blood Pressure 93/65 07/29/19 08:44 O2 Sat by Pulse Oximetry (%) 100 07/29/19 08:19 Constitutional: Yes: No Distress, Calm Eyes: Yes: Conjunctiva Clear Cardiovascular: Yes: Regular Rate and Rhythm Respiratory: Yes: Other (decreased breath sounds, no active wheezing) Gastrointestinal: Yes: Soft Edema: No Neurological: Yes: Alert, Oriented Labs: CBC, BMP 07/29/19 05:15 07/29/19 05:15 INR, PTT INR 1.59 (0.83-1.09) H 07/26/19 10:30 - ....Imaging EKG: Image Reviewed Assessment/Plan Assessment/Plan echo 2017 nl LV/RV function, mild MR, mild TR CXR: no congestion EKG sinus, nl intervals, no ischemic changes tele: sinus, short NSVT, short self limited run PSVT SOB: - likely in setting of anemia - trop neg, EKG no signs ACS - echo normal LVEF Anemia: stool guaiac negative. - receiving transfusion of PRBC - manage per primary DVT/PE: - was on xarelto, holding in setting of anemia - manage per primary, stool guaiac negative HTN: running low - decrease Amlodipine to 5 mg NSVT/PSVT normal EF: -Neg enzymes -May be due to albuterol -Keep K+ and Mg2+ repleted ( 4/2 are targets) -Cont tele - If PSVT/ NSVT persist/recur or become more prolonged, can change Amlodipine to Diltiazem CD 120mg for both BP effect and to control PSVT/ NSVT. Would avoid beta blockers with her sig COPD/Asthma hx. Seems improved today.
[2019-07-29] MEDS: CEFTRIAXONE 1 GM in DEXTROSE 5%-WATER - 50 ML IVPB SCH (09:32)
[2019-07-29] MEDS: LISINOPRIL 20 MG TABLET (FP) PO SCH (09:32)
[2019-07-29] MEDS: FOLIC ACID 1 MG TABLET (FP) PO SCH (09:32)
[2019-07-29] MEDS: amLODIPine BESYLATE 5 MG TABLET (FP) PO SCH (09:34)
[2019-07-29] MEDS: THEOPHYLLINE ANHYDROUS 200 MG CAP.ER.24H PO SCH (09:36)
[2019-07-29] MEDS ORDERED: PT OWN MED DRAWER 7, Y5N ONE (09:36)
[2019-07-29] MEDS: BUDESONIDE/FORMETEROL FUMARATE 80/4.5 mcg INHALER IH SCH ×2 (09:37→21:44)
--- NOTE | 2019-07-29 10:48 | PN ---
Progress Note (short form) - Note Progress Note: better today she still has HAUSER Vital Signs - 24 hr 07/28/19 07/29/19 07/29/19 20:38 02:41 05:00 Temperature 98.2 F 98.6 F 98.4 F Pulse Rate 99 H 80 89 Respiratory 20 20 20 Rate Blood Pressure 103/68 114/69 109/91 O2 Sat by Pulse 100 Oximetry (%) 07/29/19 07/29/19 07/29/19 08:19 08:44 14:06 Temperature 98.6 F 98.4 F Pulse Rate 98 H 70 Respiratory 20 18 20 Rate Blood Pressure 93/65 105/55 L O2 Sat by Pulse 100 Oximetry (%) Current Medications Generic Name Dose Route Start Last Admin Trade Name Freq PRN Reason Stop Dose Admin Acetaminophen 650 mg 07/26/19 12:58 07/26/19 23:12 Tylenol - PO 650 mg Q4H PRN Administration PAIN LEVEL 1-5 Albuterol Sulfate 1 amp 07/26/19 20:18 07/27/19 20:04 Ventolin 0.083% Nebulizer Soln - NEB 1 amp Q6H PRN Administration SHORT OF BREATH/WHEEZING Amlodipine Besylate 5 mg 07/29/19 10:00 07/29/19 09:34 Norvasc - PO 5 mg DAILY ZAKI Administration Atorvastatin Calcium 10 mg 07/26/19 22:00 07/28/19 21:57 Lipitor - PO 10 mg HS [facility]AKI Administration Budesonide/Formoterol Fumarate 2 puff 07/26/19 22:00 07/29/19 09:37 Symbicort 80/4.5mcg - IH 2 puff BID ZAKI Administration Folic Acid 1 mg 07/27/19 10:00 07/29/19 09:32 Folic Acid - PO 1 mg DAILY [facility]AK[facility] Administration Ceftriaxone Sodium 1 gm/ 50 mls @ 100 mls/hr 07/27/19 13:00 07/29/19 09:32 Dextrose IVPB 100 mls/hr DAILY ZAKI Administration Protocol Insulin Aspart 1 vial 07/26/19 16:30 07/29/19 16:57 Novolog Vial Sliding Scale - SQ Not Given ACHS ZAKI Protocol Insulin Detemir 45 units 07/27/19 07:00 07/29/19 06:08 Levemir Vial SQ 45 units AM [facility]I Administration Lisinopril 20 mg 07/27/19 10:00 07/29/19 09:32 Prinivil PO 20 mg DAILY [facility] Administration Montelukast Sodium 10 mg 07/26/19 22:00 07/28/19 21:57 Singulair - PO 10 mg HS [facility]AKI Administration Theophylline 400 mg 07/27/19 10:00 07/29/19 09:36 Haim-24 PO 400 mg DAILY [facility] Administration Laboratory Results - last 24 hr 07/26/19 07/28/19 07/28/19 10:30 21:55 22:30 WBC RBC Hgb Hct MCV MCH MCHC RDW Plt Count MPV Absolute Neuts (auto) Neutrophils % Lymphocytes % Monocytes % Eosinophils % Basophils % Nucleated RBC % Sodium Potassium Chloride Carbon Dioxide Anion Gap BUN Creatinine Est GFR (CKD-EPI)AfAm Est GFR (CKD-EPI)NonAf POC Glucometer 117 Random Glucose Calcium Magnesium Total Bilirubin AST ALT Alkaline Phosphatase Total Protein Albumin Stool Occult Blood Negative Blood Type O NEGATIVE Antibody Screen Negative Crossmatch See Detail 07/29/19 07/29/19 07/29/19 05:15 05:15 05:20 WBC 8.5 RBC 4.33 Hgb 9.2 L Hct 28.8 L MCV 66.5 L MCH 21.3 L MCHC 32.0 RDW 21.3 H Plt Count 550 H MPV 7.8 Absolute Neuts (auto) 6.2 Neutrophils % 72.9 Lymphocytes % 12.7 D Monocytes % 9.9 Eosinophils % 3.9 D Basophils % 0.6 Nucleated RBC % 0 Sodium 137 Potassium 4.4 Chloride 102 Carbon Dioxide 29 Anion Gap 7 L BUN 19.8 H Creatinine 1.1 Est GFR (CKD-EPI)AfAm 56.48 Est GFR (CKD-EPI)NonAf 48.73 POC Glucometer 114 Random Glucose 105 Calcium 9.4 Magnesium 1.8 Total Bilirubin 0.6 AST 11 L ALT 12 L Alkaline Phosphatase 99 Total Protein 7.0 Albumin 3.4 Stool Occult Blood Blood Type Antibody Screen Crossmatch 07/29/19 07/29/19 11:55 16:34 WBC RBC Hgb Hct MCV MCH MCHC RDW Plt Count MPV Absolute Neuts (auto) Neutrophils % Lymphocytes % Monocytes % Eosinophils % Basophils % Nucleated RBC % Sodium Potassium Chloride Carbon Dioxide Anion Gap BUN Creatinine Est GFR (CKD-EPI)AfAm Est GFR (CKD-EPI)NonAf POC Glucometer 94 87 Random Glucose Calcium Magnesium Total Bilirubin AST ALT Alkaline Phosphatase Total Protein Albumin Stool Occult Blood Blood Type Antibody Screen Crossmatch S1S2 RRR Lungs decreased breath sounds no ronchi Abd- soft, NT no edema PLAN s/p 1 unit prbc GI eval noted for colonoscopy tomorrow UTI on iv antibiotics monitor Hb Problem List - Problems (1) COPD with acute exacerbation Code(s): J44.1 - CHRONIC OBSTRUCTIVE PULMONARY DISEASE W (ACUTE) EXACERBATION (2) Dyspnea Code(s): R06.00 - DYSPNEA, UNSPECIFIED Qualifiers: Dyspnea type: unspecified Qualified Code(s): R06.00 - Dyspnea, unspecified (3) Symptomatic anemia Code(s): D64.9 - ANEMIA, UNSPECIFIED (4) UTI (urinary tract infection) Code(s): N39.0 - URINARY TRACT INFECTION, SITE NOT SPECIFIED Qualifiers: Urinary tract infection type: acute cystitis Hematuria presence: without hematuria Qualified Code(s): N30.00 - Acute cystitis without hematuria (5) COPD (chronic obstructive pulmonary disease) Code(s): J44.9 - CHRONIC OBSTRUCTIVE PULMONARY DISEASE, UNSPECIFIED Qualifiers: (6) History of colon cancer Code(s): Z85.038 - PERSONAL HISTORY OF MALIGNANT NEOPLASM OF LARGE INTESTINE
--- NOTE | 2019-07-29 11:14 | PN ---
Progress Note (short form) - Note Progress Note: PULMONARY VSS/AFEBRILE OOB TO CHAIR SUBJECTIVE IMPROVEMENT GI PREP UNDERWAY ANICTERIC CLEAR B/L BREATH SOUNDS S1S2 BS+ OBESE NO EDEMA LABS/MEDS/NOTES REVIEWED HGB 9.2 GM HAUSER LIKELY DUE TO ANEMIA FAVOR GI LOSSES GIVEN PAST HISTORY COPD/ASTHMA NOT IN EXACERBATION IMPROVED POST TRANSFUSION MULTIPLE CO-MORBID CONDITIONS INCLUDING THREE PAST NEOPLASMS NO OBJECTION TO EGD/COLONOSCOPY FROM A PULMONARY STANDPOINT KEEP HGB GREATER THAN 8GMS CONTINUE BRONCHODILATORS/O2/GLYCEMIC CONTROL GRAM NEGATIVE BACTERIA IN URINE /ON ANTIBIOTICS STOOL GUIAC/GI PUJA MENSAH MD Problem List - Problems (1) Dyspnea Code(s): R06.00 - DYSPNEA, UNSPECIFIED Qualifiers: Dyspnea type: unspecified Qualified Code(s): R06.00 - Dyspnea, unspecified (2) Symptomatic anemia Code(s): D64.9 - ANEMIA, UNSPECIFIED (3) Breast CA Code(s): C50.919 - MALIGNANT NEOPLASM OF UNSP SITE OF UNSPECIFIED FEMALE BREAST (4) COPD (chronic obstructive pulmonary disease) Code(s): J44.9 - CHRONIC OBSTRUCTIVE PULMONARY DISEASE, UNSPECIFIED Qualifiers: (5) Diastolic CHF Code(s): I50.30 - UNSPECIFIED DIASTOLIC (CONGESTIVE) HEART FAILURE Qualifiers: Qualified Code(s): I50.32 - Chronic diastolic (congestive) heart failure (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
[2019-07-29] MEDS ORDERED: PEG 3350/NA SULF BICARB CL/KCL 4000 ML SOLN.RECON PO ONE (13:00)
[2019-07-29] MEDS: MONTELUKAST NA 10 MG TABLET PO SCH (21:44)
[2019-07-29] MEDS: ATORVASTATIN CA 10 MG TABLET (FP) PO SCH (21:44)
[2019-07-30] MEDS: INSULIN SLIDING SCALE (NOVOLOG) 1 VIAL SQ SCH ×4 (06:36→21:22)
[2019-07-30] MEDS: INSULIN (LEVEMIR) 100 UNITS/ML UNITS SQ SCH (06:38)
--- NOTE | 2019-07-30 09:16 | PN ---
Progress Note, Physician - Current Medication List Current Medications: Active Medications Acetaminophen (Tylenol -) 650 mg PO Q4H PRN PRN Reason: PAIN LEVEL 1-5 Last Admin: 07/26/19 23:12 Dose: 650 mg Albuterol Sulfate (Ventolin 0.083% Nebulizer Soln -) 1 amp NEB Q6H PRN PRN Reason: SHORT OF BREATH/WHEEZING Last Admin: 07/27/19 20:04 Dose: 1 amp Amlodipine Besylate (Norvasc -) 5 mg PO DAILY [facility] Last Admin: 07/29/19 09:34 Dose: 5 mg Atorvastatin Calcium (Lipitor -) 10 mg PO HS [facility] Last Admin: 07/29/19 21:44 Dose: 10 mg Budesonide/Formoterol Fumarate (Symbicort 80/4.5mcg -) 2 puff IH BID [facility] Last Admin: 07/29/19 21:44 Dose: 2 puff Folic Acid (Folic Acid -) 1 mg PO DAILY [facility] Last Admin: 07/29/19 09:32 Dose: 1 mg Ceftriaxone Sodium 1 gm/ (Dextrose) 50 mls @ 100 mls/hr IVPB DAILY [facility]; Protocol Last Admin: 07/29/19 09:32 Dose: 100 mls/hr Insulin Aspart (Novolog Vial Sliding Scale -) 1 vial SQ ACHS [facility]; Protocol Last Admin: 07/30/19 06:36 Dose: Not Given Insulin Detemir (Levemir Vial) 45 units SQ AM [facility] Last Admin: 07/30/19 06:38 Dose: Not Given Lisinopril (Prinivil) 20 mg PO DAILY [facility] Last Admin: 07/29/19 09:32 Dose: 20 mg Montelukast Sodium (Singulair -) 10 mg PO HS [facility] Last Admin: 07/29/19 21:44 Dose: 10 mg Theophylline (Haim-24) 400 mg PO DAILY [facility] Last Admin: 07/29/19 09:36 Dose: 400 mg - Objective Vital Signs: Vital Signs Temperature 98.3 F 07/30/19 05:00 Pulse Rate 93 H 07/30/19 05:00 Respiratory Rate 20 07/30/19 05:00 Blood Pressure 95/70 07/30/19 05:00 O2 Sat by Pulse Oximetry (%) 98 07/29/19 20:43 Labs: CBC, BMP 07/29/19 05:15 07/29/19 05:15 INR, PTT INR 1.59 (0.83-1.09) H 07/26/19 10:30 Assessment/Plan echo 2018 nl LV/RV function, mild MR, mild TR CXR: no congestion EKG sinus, nl intervals, no ischemic changes tele: sinus, short NSVT, short self limited run PSVT SOB: - likely in setting of anemia - trop neg, EKG no signs ACS - echo normal LVEF Anemia: stool guaiac negative. - receiving transfusion of PRBC - manage per primary DVT/PE: - was on xarelto, holding in setting of anemia - manage per primary, stool guaiac negative HTN: - bp was running low, decreased Amlodipine to 5 mg - currently stable NSVT/PSVT normal EF: -Neg enzymes -May be due to albuterol -Keep K+ and Mg2+ repleted ( 4/2 are targets) -Cont tele - If PSVT/ NSVT persist/recur or become more prolonged, can change Amlodipine to Diltiazem CD 120mg for both BP effect and to control PSVT/ NSVT. Would avoid beta blockers with her sig COPD/Asthma hx. Seems improved today.
[2019-07-30] MEDS ORDERED: cefTRIAXone SODIUM 1 GM VIAL ONE (09:51)
[2019-07-30] MEDS ORDERED: DEXTROSE 5%-WATER - 50 ML IVPB ONE (09:51)
[2019-07-30] MEDS: LISINOPRIL 20 MG TABLET (FP) PO SCH (10:31)
[2019-07-30] MEDS: FOLIC ACID 1 MG TABLET (FP) PO SCH (10:31)
[2019-07-30] MEDS: amLODIPine BESYLATE 5 MG TABLET (FP) PO SCH (10:31)
[2019-07-30] MEDS: BUDESONIDE/FORMETEROL FUMARATE 80/4.5 mcg INHALER IH SCH ×2 (10:31→21:19)
[2019-07-30] MEDS: THEOPHYLLINE ANHYDROUS 200 MG CAP.ER.24H PO SCH (10:32)
[2019-07-30] MEDS: CEFTRIAXONE 1 GM in DEXTROSE 5%-WATER - 50 ML IVPB SCH (10:33)
--- NOTE | 2019-07-30 11:08 | PN ---
Progress Note, Physician History of Present Illness: PULMONARY ALERT,COMFORTABLE AT REST,+ HAUSER,-CP,-COUGH - Current Medication List Current Medications: Active Medications Acetaminophen (Tylenol -) 650 mg PO Q4H PRN PRN Reason: PAIN LEVEL 1-5 Last Admin: 07/26/19 23:12 Dose: 650 mg Albuterol Sulfate (Ventolin 0.083% Nebulizer Soln -) 1 amp NEB Q6H PRN PRN Reason: SHORT OF BREATH/WHEEZING Last Admin: 07/27/19 20:04 Dose: 1 amp Amlodipine Besylate (Norvasc -) 5 mg PO DAILY [facility] Last Admin: 07/30/19 10:31 Dose: 5 mg Atorvastatin Calcium (Lipitor -) 10 mg PO HS [facility] Last Admin: 07/29/19 21:44 Dose: 10 mg Budesonide/Formoterol Fumarate (Symbicort 80/4.5mcg -) 2 puff IH BID [facility] Last Admin: 07/30/19 10:31 Dose: 2 puff Folic Acid (Folic Acid -) 1 mg PO DAILY [facility] [place] Last Admin: 07/30/19 10:31 Dose: 1 mg Ceftriaxone Sodium 1 gm/ (Dextrose) 50 mls @ 100 mls/hr IVPB DAILY [facility] [place]; Protocol Last Admin: 07/30/19 10:33 Dose: 100 mls/hr Insulin Aspart (Novolog Vial Sliding Scale -) 1 vial SQ ACHS [facility] [place]; Protocol Last Admin: 07/30/19 06:36 Dose: Not Given Insulin Detemir (Levemir Vial) 45 units SQ AM [facility] [place] Last Admin: 07/30/19 06:38 Dose: Not Given Lisinopril (Prinivil) 20 mg PO DAILY [facility] [place] Last Admin: 07/30/19 10:31 Dose: 20 mg Montelukast Sodium (Singulair -) 10 mg PO HS [facility] [place] Last Admin: 07/29/19 21:44 Dose: 10 mg Theophylline (Haim-24) 400 mg PO DAILY [facility] [place] Last Admin: 07/30/19 10:32 Dose: 400 mg - Objective Vital Signs: Vital Signs Temperature 98.3 F 07/30/19 05:00 Pulse Rate 93 H 07/30/19 05:00 Respiratory Rate 20 07/30/19 05:00 Blood Pressure 95/70 07/30/19 05:00 O2 Sat by Pulse Oximetry (%) 98 07/29/19 20:43 Constitutional: Yes: Well Nourished, Calm Eyes: Yes: WNL HENT: Yes: WNL Neck: Yes: WNL Cardiovascular: Yes: Regular Rate and Rhythm, S1, S2 Respiratory: Yes: Diminished Gastrointestinal: Yes: Normal Bowel Sounds, Soft Edema: Yes Peripheral Pulses WNL: No Labs: CBC, BMP Assessment/Plan IMP HAUSER LIKELY DUE TO ANEMIA IMPROVED POST TRANSFUSION COPD/ASTHMA NOT IN EXACERBATION H/O COLON CA H/O BREAST CA H/O OVARIAN CA HTN HLD DM EGD/COLONOSCOPY TODA KEEP HGB GREATER THAN 8GMS CONTINUE BRONCHODILATORS O2/ GLYCEMIC CONTROL GRAM NEGATIVE BACTERIA IN URINE ON ANTIBIOTICS DR SMITH Problem List - Problems (1) Dyspnea Code(s): R06.00 - DYSPNEA, UNSPECIFIED Qualifiers: Dyspnea type: unspecified Qualified Code(s): R06.00 - Dyspnea, unspecified (2) Symptomatic anemia Code(s): D64.9 - ANEMIA, UNSPECIFIED (3) Breast CA Code(s): C50.919 - MALIGNANT NEOPLASM OF UNSP SITE OF UNSPECIFIED FEMALE BREAST (4) COPD (chronic obstructive pulmonary disease) Code(s): J44.9 - CHRONIC OBSTRUCTIVE PULMONARY DISEASE, UNSPECIFIED Qualifiers: (5) Diastolic CHF Code(s): I50.30 - UNSPECIFIED DIASTOLIC (CONGESTIVE) HEART FAILURE Qualifiers: Qualified Code(s): I50.32 - Chronic diastolic (congestive) heart failure (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
--- NOTE | 2019-07-30 12:23 | PN ---
Progress Note (short form) - Note Progress Note: GI Procedure NOte: Please see scanned EGD and colonoscopy reports. No focus of bleeding found so I have discussed capsule endoscopy as an outpatient which they can arrange with Dr Moon. I will advance her diet and order Venofer.
--- NOTE | 2019-07-30 12:26 | PN ---
Progress Note (short form) - Note Progress Note: EGD/ Colonoscopy today Findings noted-- no sourse out pt Capsule Endoscopy planned pt comfortable niece at bedside Vital Signs Temp 99.6 F 07/30/19 12:24 Pulse 101 H 07/30/19 12:24 Resp 18 07/30/19 12:24 BP 123/65 07/30/19 12:24 Pulse Ox 98 07/30/19 12:24 Intake & Output 07/29/19 07/30/19 07/30/19 23:59 11:59 23:59 Intake Total 1350 1120 Balance 1350 1120 Intake: IV 200 IVPB 50 Oral 1300 920 Other: Voiding Method Bedside Commode Bedside Commode # Unmeasured Voids Void 2 2 Bowel Movement Yes # Bowel Movements 1 Active Medications Acetaminophen (Tylenol -) 650 mg PO Q4H PRN PRN Reason: PAIN LEVEL 1-5 Last Admin: 07/26/19 23:12 Dose: 650 mg Albuterol Sulfate (Ventolin 0.083% Nebulizer Soln -) 1 amp NEB Q6H PRN PRN Reason: SHORT OF BREATH/WHEEZING Last Admin: 07/27/19 20:04 Dose: 1 amp Amlodipine Besylate (Norvasc -) 5 mg PO DAILY [facility] Last Admin: 07/30/19 10:31 Dose: 5 mg Atorvastatin Calcium (Lipitor -) 10 mg PO HS [facility] Last Admin: 07/29/19 21:44 Dose: 10 mg Budesonide/Formoterol Fumarate (Symbicort 80/4.5mcg -) 2 puff IH BID [facility] Last Admin: 07/30/19 10:31 Dose: 2 puff Folic Acid (Folic Acid -) 1 mg PO DAILY [facility] Last Admin: 07/30/19 10:31 Dose: 1 mg Ceftriaxone Sodium 1 gm/ (Dextrose) 50 mls @ 100 mls/hr IVPB DAILY [facility]; Protocol Last Admin: 07/30/19 10:33 Dose: 100 mls/hr Insulin Aspart (Novolog Vial Sliding Scale -) 1 vial SQ ACHS [facility]; Protocol Last Admin: 07/30/19 06:36 Dose: Not Given Insulin Detemir (Levemir Vial) 45 units SQ AM [facility] Last Admin: 07/30/19 06:38 Dose: Not Given Lisinopril (Prinivil) 20 mg PO DAILY [facility] Last Admin: 07/30/19 10:31 Dose: 20 mg Montelukast Sodium (Singulair -) 10 mg PO HS [facility] Last Admin: 07/29/19 21:44 Dose: 10 mg Theophylline (Haim-24) 400 mg PO DAILY [facility] Last Admin: 07/30/19 10:32 Dose: 400 mg CBC, BMP 07/29/19 05:15 07/29/19 05:15 Microbiology 07/26/19 11:50 Urine Culture - Final Urine - Urine Clean Catch Escherichia Coli Enterococcus Faecalis Physical Exam S1S2 RRR Lungs decreased breath sounds Abd- soft, NT no edema Neuro- alert/ awake PLAN s/p EGD and colonoscopy UTI on iv antibiotics monitor Hb oob - chair f/u labs d/c planning in am if stable will follow Problem List - Problems (1) COPD with acute exacerbation Code(s): J44.1 - CHRONIC OBSTRUCTIVE PULMONARY DISEASE W (ACUTE) EXACERBATION (2) Dyspnea Code(s): R06.00 - DYSPNEA, UNSPECIFIED Qualifiers: Dyspnea type: unspecified Qualified Code(s): R06.00 - Dyspnea, unspecified (3) Symptomatic anemia Code(s): D64.9 - ANEMIA, UNSPECIFIED (4) UTI (urinary tract infection) Code(s): N39.0 - URINARY TRACT INFECTION, SITE NOT SPECIFIED Qualifiers: Urinary tract infection type: acute cystitis Hematuria presence: without hematuria Qualified Code(s): N30.00 - Acute cystitis without hematuria (5) COPD (chronic obstructive pulmonary disease) Code(s): J44.9 - CHRONIC OBSTRUCTIVE PULMONARY DISEASE, UNSPECIFIED Qualifiers: (6) History of colon cancer Code(s): Z85.038 - PERSONAL HISTORY OF MALIGNANT NEOPLASM OF LARGE INTESTINE Problem List - Problems (1) Symptomatic anemia Code(s): D64.9 - ANEMIA, UNSPECIFIED (2) UTI (urinary tract infection) Code(s): N39.0 - URINARY TRACT INFECTION, SITE NOT SPECIFIED Qualifiers: Urinary tract infection type: acute cystitis Hematuria presence: without hematuria Qualified Code(s): N30.00 - Acute cystitis without hematuria (3) COPD (chronic obstructive pulmonary disease) Code(s): J44.9 - CHRONIC OBSTRUCTIVE PULMONARY DISEASE, UNSPECIFIED Qualifiers: (4) Diastolic CHF Code(s): I50.30 - UNSPECIFIED DIASTOLIC (CONGESTIVE) HEART FAILURE (5) HTN (hypertension) Code(s): I10 - ESSENTIAL (PRIMARY) HYPERTENSION (6) IDDM (insulin dependent diabetes mellitus) Code(s): E11.9 - TYPE 2 DIABETES MELLITUS WITHOUT COMPLICATIONS; Z79.4 - CORRECTION (CURRENT) USE OF INSULIN
[2019-07-30] MEDS ORDERED: IRON SUCROSE INJECTION 200 MG in SODIUM CHLORIDE 90 ML IVPB ONE (13:15)
--- NOTE | 2019-07-30 16:10 | PN ---
Progress Note (short form) - Note Progress Note: s: no chest pain, palps, dizziness, dyspnea Current Medications Acetaminophen (Tylenol -) 650 mg PO Q4H PRN PRN Reason: PAIN LEVEL 1-5 Last Admin: 07/26/19 23:12 Dose: 650 mg Albuterol Sulfate (Ventolin 0.083% Nebulizer Soln -) 1 amp NEB Q6H PRN PRN Reason: SHORT OF BREATH/WHEEZING Last Admin: 07/27/19 20:04 Dose: 1 amp Amlodipine Besylate (Norvasc -) 5 mg PO DAILY [facility] Last Admin: 07/30/19 10:31 Dose: 5 mg Atorvastatin Calcium (Lipitor -) 10 mg PO HS [facility] Last Admin: 07/29/19 21:44 Dose: 10 mg Budesonide/Formoterol Fumarate (Symbicort 80/4.5mcg -) 2 puff IH BID [facility] Last Admin: 07/30/19 10:31 Dose: 2 puff Folic Acid (Folic Acid -) 1 mg PO DAILY [facility] Last Admin: 07/30/19 10:31 Dose: 1 mg Insulin Aspart (Novolog Vial Sliding Scale -) 1 vial SQ ACHS [facility]; Protocol Last Admin: 07/30/19 11:00 Dose: Not Given Insulin Detemir (Levemir Vial) 45 units SQ AM [facility] Last Admin: 07/30/19 06:38 Dose: Not Given Lisinopril (Prinivil) 20 mg PO DAILY [facility] Last Admin: 07/30/19 10:31 Dose: 20 mg Montelukast Sodium (Singulair -) 10 mg PO [facility] Last Admin: 07/29/19 21:44 Dose: 10 mg Theophylline (Haim-24) 400 mg PO DAILY [facility] Last Admin: 07/30/19 10:32 Dose: 400 mg Vital Signs Period Temp Pulse Resp BP Sys/Puga Pulse Ox Last 24 Hr 98.1 F-99.6 F 68-102 14-20 95-131/60-75 96-100 Constitutional: Yes: No Distress, Calm Eyes: Yes: Conjunctiva Clear Cardiovascular: Yes: Regular Rate and Rhythm Respiratory: Yes: Other (decreased breath sounds, no active wheezing) Gastrointestinal: Yes: Soft Edema: No Neurological: Yes: Alert, Oriented - ....Imaging EKG: Image Reviewed Assessment/Plan Assessment/Plan echo 2018 nl LV/RV function, mild MR, mild TR CXR: no congestion EKG sinus, nl intervals, no ischemic changes tele: sinus, PVCs SOB: - likely in setting of anemia - trop neg, EKG no signs ACS - echo normal LVEF Anemia: stool guaiac negative. - receiving transfusion of PRBC - manage per primary DVT/PE: - was on xarelto, holding in setting of anemia - manage per primary, stool guaiac negative HTN: - had been running low, improved with amlodipine decreased to 5 mg daily NSVT/PSVT normal EF -Neg enzymes -May have been due to albuterol - no PSVT noted on 07/29- -Keep K+ and Mg2+ repleted ( / are targets) -Cont tele - If PSVT/ NSVT persist/recur or become more prolonged, can change Amlodipine to Diltiazem CD 120mg for both BP effect and to control PSVT/ NSVT. Would avoid beta blockers with her sig COPD/Asthma hx
[2019-07-30] MEDS ORDERED: IBUPROFEN 600 MG TABLET (FP) PO ONE (19:01)
[2019-07-30] MEDS: ALBUTEROL SO4 0.083% IH SOL 2.5 MG/3 ML VIAL.NEB. NEB PRN (20:45)
[2019-07-30] MEDS ORDERED: INSULIN (NOVOLOG) ASPART 100 UNITS/ML 10ML VIAL ONE (21:11)
[2019-07-30] MEDS: ATORVASTATIN CA 10 MG TABLET (FP) PO SCH (21:18)
[2019-07-30] MEDS: MONTELUKAST NA 10 MG TABLET PO SCH (22:12)
[2019-07-31] MEDS: INSULIN SLIDING SCALE (NOVOLOG) 1 VIAL SQ SCH ×2 (06:35→11:24)
[2019-07-31] MEDS: INSULIN (LEVEMIR) 100 UNITS/ML UNITS SQ SCH (06:41)
[2019-07-31 07:29] LABS: EOS % 4.5 % (0-4.5); HEMATOCRIT 27.9 % (32.4-45.2); HEMOGLOBIN 8.7 GM/dL (10.7-15.3); LYMPH % 8.8 % (8-40); MCH 20.8 pg (25.7-33.7); MCHC 31.3 g/dl (32.0-36.0); MEAN CELL VOLUME 66.7 fl (80-96); MEAN PLT VOLUME 8.3 fl (7.5-11.1); NEUT % 77.7 % (42.8-82.8); PLATELET COUNT 479 K/MM3 (134-434); RBC 4.19 M/mm3 (3.60-5.2); RDW 19.9 % (11.6-15.6); RETICULOCYTES 1.86 % (0.5-1.5); WHITE BLOOD COUNT 8.1 K/mm3 (4.0-10.0)
[2019-07-31 07:39] LABS: CALCIUM 9.4 mg/dL (8.5-10.1); CREATININE 1.2 mg/dL (0.55-1.3); POTASSIUM 4.5 mmol/L (3.5-5.1)
[2019-07-31] MEDS: LISINOPRIL 20 MG TABLET (FP) PO SCH (09:59)
[2019-07-31] MEDS: FOLIC ACID 1 MG TABLET (FP) PO SCH (09:59)
[2019-07-31] MEDS: amLODIPine BESYLATE 5 MG TABLET (FP) PO SCH (09:59)
[2019-07-31] MEDS: BUDESONIDE/FORMETEROL FUMARATE 80/4.5 mcg INHALER IH SCH (09:59)
[2019-07-31] MEDS: THEOPHYLLINE ANHYDROUS 200 MG CAP.ER.24H PO SCH (10:00)
--- NOTE | 2019-07-31 10:46 | PN ---
Progress Note, Physician History of Present Illness: pulmonary alert,comfortable at rest ,+ hauser,-cp.GGI w/u negative so far - Current Medication List Current Medications: Active Medications Acetaminophen (Tylenol -) 650 mg PO Q4H PRN PRN Reason: PAIN LEVEL 1-5 Last Admin: 07/26/19 23:12 Dose: 650 mg Albuterol Sulfate (Ventolin 0.083% Nebulizer Soln -) 1 amp NEB Q6H PRN PRN Reason: SHORT OF BREATH/WHEEZING Last Admin: 07/30/19 20:45 Dose: 1 amp Amlodipine Besylate (Norvasc -) 5 mg PO DAILY [facility] Last Admin: 07/31/19 09:59 Dose: 5 mg Atorvastatin Calcium (Lipitor -) 10 mg PO HS [facility] Last Admin: 07/30/19 21:18 Dose: 10 mg Budesonide/Formoterol Fumarate (Symbicort 80/4.5mcg -) 2 puff IH BID [facility] Last Admin: 07/31/19 09:59 Dose: 2 puff Folic Acid (Folic Acid -) 1 mg PO DAILY [facility] Last Admin: 07/31/19 09:59 Dose: 1 mg Insulin Aspart (Novolog Vial Sliding Scale -) 1 vial SQ [facility]; Protocol Last Admin: 07/31/19 06:35 Dose: Not Given Insulin Detemir (Levemir Vial) 45 units SQ AM [facility] Last Admin: 07/31/19 06:41 Dose: 45 units Lisinopril (Prinivil) 20 mg PO DAILY [facility] Last Admin: 07/31/19 09:59 Dose: 20 mg Montelukast Sodium (Singulair -) 10 mg PO HS [facility] Last Admin: 07/30/19 22:12 Dose: 10 mg Theophylline (Haim-24) 400 mg PO DAILY [facility] Last Admin: 07/31/19 10:00 Dose: 400 mg - Objective Vital Signs: Vital Signs Temperature 99 F 07/31/19 06:00 Pulse Rate 94 H 07/31/19 06:00 Respiratory Rate 20 07/31/19 06:00 Blood Pressure 92/67 07/31/19 06:00 O2 Sat by Pulse Oximetry (%) 97 07/30/19 21:00 Constitutional: Yes: Well Nourished, Calm Eyes: Yes: WNL HENT: Yes: WNL Neck: Yes: WNL Cardiovascular: Yes: Regular Rate and Rhythm, S1, S2 Respiratory: Yes: Diminished Gastrointestinal: Yes: Normal Bowel Sounds, Soft Extremities: Yes: WNL Edema: No Labs: CBC, BMP 07/31/19 06:25 07/31/19 06:25 INR, PTT INR 1.59 (0.83-1.09) H 07/26/19 10:30 Assessment/Plan IMP HAUSER LIKELY DUE TO ANEMIA IMPROVED POST TRANSFUSION COPD/ASTHMA NOT IN EXACERBATION H/O COLON CA H/O BREAST CA H/O OVARIAN CA HTN HLD DM KEEP HGB GREATER THAN 8GMS CONTINUE BRONCHODILATORS O2 as needed GLYCEMIC CONTROL GRAM NEGATIVE BACTERIA IN URINE ON ANTIBIOTICS DR SMITH Problem List - Problems (1) Dyspnea Code(s): R06.00 - DYSPNEA, UNSPECIFIED Qualifiers: Dyspnea type: unspecified Qualified Code(s): R06.00 - Dyspnea, unspecified (2) Symptomatic anemia Code(s): D64.9 - ANEMIA, UNSPECIFIED (3) Breast CA Code(s): C50.919 - MALIGNANT NEOPLASM OF UNSP SITE OF UNSPECIFIED FEMALE BREAST (4) COPD (chronic obstructive pulmonary disease) Code(s): J44.9 - CHRONIC OBSTRUCTIVE PULMONARY DISEASE, UNSPECIFIED Qualifiers: (5) Diastolic CHF Code(s): I50.30 - UNSPECIFIED DIASTOLIC (CONGESTIVE) HEART FAILURE Qualifiers: Qualified Code(s): I50.32 - Chronic diastolic (congestive) heart failure (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
[2019-07-31 12:34] LABS: ANISOCYTOSIS 1+; MACROCYTOSIS 0; OVALOCYTE 1+; PLATELET ESTIMATE NORMAL; TARGET CELLS 1+
--- NOTE | 2019-07-31 12:59 | PN ---
Progress Note (short form) - Note Progress Note: s: no chest pain, palps, dizziness, dyspnea Current Medications Acetaminophen (Tylenol -) 650 mg PO Q4H PRN PRN Reason: PAIN LEVEL 1-5 Last Admin: 07/26/19 23:12 Dose: 650 mg Albuterol Sulfate (Ventolin 0.083% Nebulizer Soln -) 1 amp NEB Q6H PRN PRN Reason: SHORT OF BREATH/WHEEZING Last Admin: 07/30/19 20:45 Dose: 1 amp Amlodipine Besylate (Norvasc -) 5 mg PO DAILY [facility] Last Admin: 07/31/19 09:59 Dose: 5 mg Atorvastatin Calcium (Lipitor -) 10 mg PO HS [facility] Last Admin: 07/30/19 21:18 Dose: 10 mg Budesonide/Formoterol Fumarate (Symbicort 80/4.5mcg -) 2 puff IH BID [facility] Last Admin: 07/31/19 09:59 Dose: 2 puff Folic Acid (Folic Acid -) 1 mg PO DAILY [facility] Last Admin: 07/31/19 09:59 Dose: 1 mg Insulin Aspart (Novolog Vial Sliding Scale -) 1 vial SQ [facility]; Protocol Last Admin: 07/31/19 11:24 Dose: Not Given Insulin Detemir (Levemir Vial) 45 units SQ AM [facility] Last Admin: 07/31/19 06:41 Dose: 45 units Lisinopril (Prinivil) 20 mg PO DAILY [facility] Last Admin: 07/31/19 09:59 Dose: 20 mg Montelukast Sodium (Singulair -) 10 mg PO [facility] Last Admin: 07/30/19 22:12 Dose: 10 mg Theophylline (Haim-24) 400 mg PO DAILY [facility] Last Admin: 07/31/19 10:00 Dose: 400 mg Vital Signs Period Temp Pulse Resp BP Sys/Puga Pulse Ox Last 24 Hr 98.4 F-99.4 F 68-111 18-20 92-110/51-69 97-98 Constitutional: Yes: No Distress, Calm Eyes: Yes: Conjunctiva Clear Cardiovascular: Yes: Regular Rate and Rhythm Respiratory: Yes: Other (decreased breath sounds, no active wheezing) Gastrointestinal: Yes: Soft Edema: No Neurological: Yes: Alert, Oriented no jaundice, diaphoresis not agitated - ....Imaging EKG: Image Reviewed Assessment/Plan Assessment/Plan echo 2018 nl LV/RV function, mild MR, mild TR CXR: no congestion EKG sinus, nl intervals, no ischemic changes tele: sinus, PVCs SOB: - likely in setting of anemia - trop neg, EKG no signs ACS - echo normal LVEF Anemia: stool guaiac negative. 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
--- NOTE | 2019-07-31 14:27 | DS ---
Physical Examination Vital Signs: Vital Signs Temperature 99 F 07/31/19 10:00 Pulse Rate 90 07/31/19 10:00 Respiratory Rate 20 07/31/19 10:00 Blood Pressure 103/60 07/31/19 10:00 O2 Sat by Pulse Oximetry (%) 98 07/31/19 10:00 Constitutional: Yes: No Distress, Calm Cardiovascular: Yes: Regular Rate and Rhythm Respiratory: Yes: Diminished Gastrointestinal: Yes: Normal Bowel Sounds, Soft, Abdomen, Obese. No: Tenderness Edema: No Labs: CBC, BMP 07/31/19 06:25 07/31/19 06:25 Discharge Summary Problems reviewed: Yes Reason For Visit: UTI,COPD,DYSPNEA,ANEMIA Current Active Problems COPD with acute exacerbation (Acute) Dyspnea (Acute) History of colon cancer (Acute) Iron deficiency anemia (Acute) Symptomatic anemia (Acute) UTI (urinary tract infection) (Acute) Hospital Course: Admitted for dyspnea on exertion found ot have anemia-- hb -- 7.4 received transfusion Stool guaic negative Seen by Pulmonary , Cardiology and GI She underwent EGD and colonoscopy on 07/30-- polyps-- no cause for anemia she also received iron infusion Pt has appointmnet with Hematology on Aug 06 Pt advised to follow up with GI for pathology results and for capsule endoscopy She my resume xarelto-- lower dose for DVT/PE follow up with PCP -- for repeat labs stable for dc home ordered VNS Condition: Stable - Instructions Referrals: Juarez Fontaine MD [Staff Physician] - 1 Week (capsule endoscopy ) Edilson Day MD [Primary Care Provider] - Disposition: HOME - Home Medications Comprehensive Discharge Medication List: Ambulatory Orders Albuterol Sulfate [Proair Hfa] 8.5 gm IH DAILY 03/10/18 Amlodipine Besylate 10 mg PO DAILY 03/10/18 Folic Acid - 1 mg PO DAILY 03/10/18 Insulin Glargine,Hum.rec.anlog [Jaydaaglrain Olguin U-100] 45 unit SQ DAILY Lisinopril 20 mg PO DAILY 03/10/18 Montelukast Na [Singulair -] 10 mg PO HS 03/10/18 Simvastatin 10 mg PO HS 03/10/18 Sitagliptin Phos/Metformin HCl [Janumet 50-1,000 mg Tablet] 1 each PO BID Acetaminophen [Tylenol .Regular Strength -] 650 mg PO Q4H PRN tablet 03/18/18 Docusate Sodium [Colace -] 100 mg PO TID capsule 03/18/18 Albuterol 0.083% Nebulizer Jazmine [Ventolin 0.083% Nebulizer Soln -] 1 amp NEB Q4H PRN 07/26/19 Fluticasone/Salmeterol [Advair 250-50 Diskus] 1 inh PO DAILY 07/26/19 Prednisone 20 mg PO DAILY 07/26/19 Ranitidine HCl 150 mg PO BID 07/26/19 Rivaroxaban [Xarelto -] 20 mg PO DAILY 07/26/19 Theophylline Anhydrous [Haim-24] 400 mg PO DAILY 07/26/19
--- NOTE | 2019-07-31 16:27 | PN.GI ---
GI Progress Note Subjective: GI NOte: I discussed yesterday's finding again with Chelly and for the need for a capsule endoscopy. She will make an appointment with Dr. Moon for this. - Objective Vital Signs: Vital Signs Temperature 97.9 F 07/31/19 14:00 Pulse Rate 106 H 07/31/19 14:00 Respiratory Rate 20 07/31/19 10:00 Blood Pressure 119/51 L 07/31/19 14:00 O2 Sat by Pulse Oximetry (%) 98 07/31/19 10:00 Laboratory Tests 07/29/19 07/31/19 07/31/19 05:15 06:25 06:25 Hgb 9.2 L 8.7 L Iron 201 H TIBC 563 H Iron Saturation 35 Ferritin 109.1 Constitutional: Calm ...Auscultate: Yes: Normoactive Bowel Sounds ...Palpate: Yes: Soft, Other (nontender) ...Percussion: Yes: Tympanitic Labs: CBC, BMP 07/31/19 06:25 07/31/19 06:25 INR, PTT INR 1.59 (0.83-1.09) H 07/26/19 10:30 Assessment/Plan Assessment: -- Suspect bleeding small bowel vascular ectasias as the cause of anemia vs her gastritis -- Rectal polyp excised -- Diverticulosis -- Personal h/o colon cancer Plan: -- No GI objections to discharge -- Chelly will followup in our office for a capsule endoscopy Problem List - Problems (1) Symptomatic anemia Code(s): D64.9 - ANEMIA, UNSPECIFIED (2) Rectal polyp Code(s): K62.1 - RECTAL POLYP (3) Diverticulosis Code(s): K57.90 - DVRTCLOS OF INTEST, PART UNSP, W/O PERF OR ABSCESS W/O BLEED (4) Gastritis Code(s): K29.70 - GASTRITIS, UNSPECIFIED, WITHOUT BLEEDING (5) History of colon cancer Code(s): Z85.038 - PERSONAL HISTORY OF MALIGNANT NEOPLASM OF LARGE INTESTINE (6) Breast CA Code(s): C50.919 - MALIGNANT NEOPLASM OF UNSP SITE OF UNSPECIFIED FEMALE BREAST (7) COPD (chronic obstructive pulmonary disease) Code(s): J44.9 - CHRONIC OBSTRUCTIVE PULMONARY DISEASE, UNSPECIFIED Qualifiers: (8) IDDM (insulin dependent diabetes mellitus) Code(s): E11.9 - TYPE 2 DIABETES MELLITUS WITHOUT COMPLICATIONS; Z79.4 - INTERMEDIATE (CURRENT) USE OF INSULIN
--- NOTE | 2019-07-31 18:06 | PATH ---
Surgical Pathology Report Patient Name: PHILIPPE FITCH [facility]. Rec. #: [id number] /Age/Gender: 1940 (Age: 78) / F Account: [id number] Location: 4 W TELEMETRY U Taken: 07/30/2019 Received: 07/30/2019 Reported: 07/31/2019 Physicians: Buck Marx M.D. Specimen(s) Received A: DUODENUM, SECOND PORTION AND DUODENAL BULB B: ANTRUM C: RECTAL POLYP D: ANASTOMOSIS Clinical History Anemia, history colon cancer Postoperative diagnosis: Hiatal hernia, GERD, colon polyp, diverticulosis, s/p patent ileocolic anastomosis Final Diagnosis A. DUODENUM, SECOND PORTION AND DUODENAL BULB, BIOPSY: DUODENAL MUCOSA WITH MILD CHRONIC DUODENITIS AND SMALL LYMPHOID AGGREGATES. B. STOMACH, ANTRUM, BIOPSY: GASTRIC ANTRAL MUCOSA WITH MILD CHRONIC GASTRITIS. IMMUNOHISTOCHEMICAL STAIN FOR H. PYLORI IS NEGATIVE. C. RECTAL POLYP, POLYPECTOMY: TUBULAR ADENOMA. D. ANASTOMOSIS, BIOPSY: JUNCTIONAL (SMALL BOWEL-COLONIC) MUCOSA WITH MILD CHRONIC INFLAMMATION, AND MILD SUPERFICIAL HYPERPLASTIC CHANGE CONSISTENT WITH ANASTOMOTIC SITE. Electronically Signed Rea Hardy M.D. Gross Description A. Received in formalin, labeled "second portion duodenum and duodenal bulb" are 2 barnes, irregular portions of soft tissue measuring 0.3 and 0.5 cm. in greatest dimension. The specimens are submitted in toto in one cassette. B. Received in formalin, labeled "antrum" are 2 barnes, irregular portions of soft tissue measuring 0.1 and 0.3 cm. in greatest dimension. The specimens are submitted in toto in one cassette. C. Received in formalin, labeled "rectal polyp" are 2 barnes, irregular portions of soft tissue measuring <0.1 and 0.3 cm. in greatest dimension. The specimens are submitted in toto in one cassette. D. Received in formalin, labeled "anastomosis" are 4 barnes, irregular portions of soft tissue ranging in size from 0.2-0.6 cm. in greatest dimension. The specimens are submitted in toto in one cassette. MLSZ/07/30/2019 sanml/07/30/2019
[2019-07-31 19:12] VITALS: BP 139/56; PULSE 101; TEMP 99.5
== END 2019-07-31 19:35 | disposition home or self-care (01) | DRG 812 ==
LOC: JER 09:24 → JERBED 12:37 → J4W 14:21
PROVIDERS: ADMIT Internal Medicine; ATTEND Internal Medicine
PROC: 30233N1 Transfusion of Nonautologous Red Blood Cells into Peripheral Vein, Percutaneous Approach (ICD-10-PCS; 2019-07-26)
PROC: 0DBP8ZX Excision of Rectum, Via Natural or Artificial Opening Endoscopic, Diagnostic (ICD-10-PCS; 2019-07-30)
PROC: 0DBL8ZX Excision of Transverse Colon, Via Natural or Artificial Opening Endoscopic, Diagnostic (ICD-10-PCS; 2019-07-30)
PROC: 0DB68ZX Excision of Stomach, Via Natural or Artificial Opening Endoscopic, Diagnostic (ICD-10-PCS; principal; 2019-07-30 10:45)
DX: D50.9 Iron deficiency anemia, unspecified (principal); N39.0 Urinary tract infection, site not specified; I47.2 Ventricular tachycardia; I50.32 Chronic diastolic (congestive) heart failure; D64.9 Anemia, unspecified; K62.1 Rectal polyp; E78.5 Hyperlipidemia, unspecified; K57.90 Diverticulosis of intestine, part unspecified, without perforation or abscess without bleeding; K29.70 Gastritis, unspecified, without bleeding; I11.0 Hypertensive heart disease with heart failure; E11.9 Type 2 diabetes mellitus without complications; K64.8 Other hemorrhoids; E66.8 Other obesity; Z68.28 Body mass index [BMI] 28.0-28.9, adult; K44.9 Diaphragmatic hernia without obstruction or gangrene; J44.9 Chronic obstructive pulmonary disease, unspecified; B96.20 Unspecified Escherichia coli [E. coli] as the cause of diseases classified elsewhere; Z85.3 Personal history of malignant neoplasm of breast; Z85.43 Personal history of malignant neoplasm of ovary; Z86.718 Personal history of other venous thrombosis and embolism; Z85.038 Personal history of other malignant neoplasm of large intestine; Z86.711 Personal history of pulmonary embolism; Z99.81 Dependence on supplemental oxygen
CPT/HCPCS: 36415; 36430; 36511; 71045-TC-FY; 80048; 80053; 81003; 82272; 82378; 82550; 82728; 82962; 83540; 83550; 83735; 83880; 84100; 84484; 85025; 85044; 85610; 86850; 86900; 86901; 86922; 87086; 87186; 88305-TC; 93005; 93010; 93306-TC; 94640; 99285-25; J1756; P9038; P9058; Q2036

== ENCOUNTER 2023-01-18 13:49 | Inpatient (IN) | payer BC, OTHER ==
[2023-01-18] MEDS ORDERED: SODIUM CHLORIDE 0.9% 1000 ML INFUS.BAG IV ONE (14:34)
[2023-01-18] MEDS ORDERED: ACETAMINOPHEN 1000 MG/100 ML BAG IVPB ONE (14:34)
[2023-01-18] MEDS ORDERED: PIPERACILLIN/TAZOBACTAM 4.5 GM VIAL IVPB ONE (14:34)
[2023-01-18] MEDS ORDERED: VANCOMYCIN 1,000 MG in DEXTROSE 5%-WATER - 250 ML IVPB ONE (14:34)
[2023-01-18] MEDS ORDERED: AZITHROMYCIN IVPB 500 MG in DEXTROSE 5%-WATER - 250 ML IVPB ONE (14:44)
[2023-01-18] MEDS ORDERED: CEFTRIAXONE 1,000 MG in DEXTROSE 5%-WATER - 50 ML IVPB ONE (14:44)
[2023-01-18] MEDS ORDERED: AZITHROMYCIN IVPB 500 MG/250 ML BAG IVPB ONE (14:51)
[2023-01-18] MEDS ORDERED: ACETAMINOPHEN INJECTION 100 ML IVPB ONE (14:51)
[2023-01-18] MEDS ORDERED: CEFTRIAXONE 1 GM/50 ML BAG ONE (14:51)
[2023-01-18 15:37] LABS: BASO % 0.4 % (0-2.0); EOS % 0.1 % (0-4.5); HEMATOCRIT 33.4 % (32.4-45.2); HEMOGLOBIN 10.5 GM/dL (10.7-15.3); LYMPH % 3.3 % (8-40); MCH 20.8 pg (25.7-33.7); MCHC 31.6 g/dl (32.0-36.0); MEAN CELL VOLUME 65.8 fl (80-96); MONO % 5.8 % (3.8-10.2); NEUT % 90.4 % (42.8-82.8); PLATELET COUNT 377 10^3/uL (134-434); RBC 5.07 M/mm3 (3.60-5.2); RDW 17.7 % (11.6-15.6); WHITE BLOOD COUNT 14.6 K/mm3 (4.0-10.0)
[2023-01-18 15:43] LABS: VENOUS BASE EXCESS 1.1 mmol/L (-2-2); VENOUS O2 SATURATION 56.6 % (70-80); VENOUS PCO2 53.6 mmHg (38-52); VENOUS PH 7.337 (7.310-7.410)
[2023-01-18 15:44] LABS: INR 1.24 (0.83-1.09); PROTHROMBIN TIME (PATIENT) 14.4 SEC (9.7-13.0)
[2023-01-18 15:47] LABS: ACTIVATED PTT 34.5 SECONDS (25.2-36.5)
[2023-01-18 15:54] LABS: CHLORIDE 98 mmol/L (98-107); SODIUM 132 mmol/L (136-145)
[2023-01-18 15:56] LABS: CALCIUM 9.6 mg/dL (8.5-10.1)
[2023-01-18 15:57] LABS: ALBUMIN 3.2 g/dl (3.4-5.0); ANION GAP 6 MMOL/L (8-16); BLOOD UREA NITROGEN 30.2 mg/dL (7-18); CO2 28 mmol/L (21-32); GLUCOSE,RANDOM 103 mg/dL (74-106)
[2023-01-18 16:00] LABS: CREATININE 1.5 mg/dL (0.55-1.3); SGOT/AST 6 U/L (15-37); SGPT/ALT 10 U/L (13-61)
[2023-01-18 16:01] LABS: BILIRUBIN,TOTAL 0.7 mg/dL (0.2-1)
[2023-01-18 16:02] LABS: TOT PROT 7.7 g/dl (6.4-8.2)
[2023-01-18 16:03] LABS: ALK PHOS 86 U/L (45-117)
[2023-01-18] MEDS ORDERED: SODIUM ZIRCONIUM CYCLOSILICATE (LOKELMA) 5 GM PACKET PO ONE (16:05)
[2023-01-18] MEDS ORDERED: SODIUM CHLORIDE 1,000 ML IV STA (16:13)
[2023-01-18] MEDS ORDERED: SODIUM ZIRCONIUM CYCLOSILICATE (LOKELMA) 5 GM PACKET ONE (17:11)
[2023-01-18 17:48] LABS: ANISOCYTOSIS 1+; MACROCYTOSIS 1+; OVALOCYTE 1+
[2023-01-18] MEDS ORDERED: ALBUTEROL SO4 0.083% IH SOL 2.5 MG/3 ML VIAL.NEB. NEB PRN (18:12)
[2023-01-18] MEDS ORDERED: SODIUM CHLORIDE 1,000 ML IV SCH (18:15)
[2023-01-18 18:25] LABS: URINE APPEARANCE CLEAR; URINE BILIRUBIN NEGATIVE (NEGATIVE); URINE COLOR YELLOW; URINE GLUCOSE (UA) NEGATIVE (NEGATIVE); URINE KETONE NEGATIVE (NEGATIVE); URINE LEUK ESTERASE NEGATIVE (NEGATIVE); URINE NITRITE NEGATIVE (NEGATIVE); URINE PROTEIN TRACE (NEGATIVE); URINE UROBILINOGEN 0.2 mg/dL (0.2-1.0)
[2023-01-18] MEDS: MONTELUKAST NA 10 MG TABLET PO SCH (22:17)
[2023-01-18] MEDS: ATORVASTATIN CA 10 MG TABLET (FP) PO SCH (22:17)
[2023-01-18] MEDS: DOXYCYCLINE INJECTION 100 MG in DEXTROSE 5%-WATER 100 ML IVPB SCH (22:17)
[2023-01-18] MEDS: BUDESONIDE/FORMETEROL FUMARATE 80/4.5 mcg INHALER IH SCH (22:18)
[2023-01-18] MEDS: HEPARIN NA (PORCINE) 5,000 UNITS/ML 1ML VIAL SQ SCH (22:26)
[2023-01-18 22:43] VITALS: BMI 27.8
[2023-01-19 07:39] LABS: HEMATOCRIT 30.8 % (32.4-45.2); HEMOGLOBIN 9.7 GM/dL (10.7-15.3); MCH 20.8 pg (25.7-33.7); MCHC 31.5 g/dl (32.0-36.0); MEAN CELL VOLUME 65.9 fl (80-96); MEAN PLT VOLUME 8.5 fl (7.5-11.1); PLATELET COUNT 377 10^3/uL (134-434); RBC 4.67 M/mm3 (3.60-5.2); RDW 17.3 % (11.6-15.6); WHITE BLOOD COUNT 14.7 K/mm3 (4.0-10.0)
[2023-01-19 08:22] LABS: CALCIUM 9.3 mg/dL (8.5-10.1)
[2023-01-19 08:23] LABS: BLOOD UREA NITROGEN 28.8 mg/dL (7-18)
[2023-01-19 08:24] LABS: CREATININE 1.2 mg/dL (0.55-1.3)
[2023-01-19 09:19] LABS: ANISOCYTOSIS 1+
[2023-01-19] MEDS: DOXYCYCLINE INJECTION 100 MG in DEXTROSE 5%-WATER 100 ML IVPB SCH ×2 (09:45→21:12)
[2023-01-19] MEDS: FOLIC ACID 1 MG TABLET (FP) PO SCH (09:46)
[2023-01-19] MEDS: FAMOTIDINE 20 MG TABLET PO SCH (09:46)
[2023-01-19] MEDS: HEPARIN NA (PORCINE) 5,000 UNITS/ML 1ML VIAL SQ SCH ×2 (09:46→21:11)
[2023-01-19] MEDS ORDERED: SODIUM ZIRCONIUM CYCLOSILICATE (LOKELMA) 5 GM PACKET PO ONE (10:00)
[2023-01-19] MEDS: TIOTROPIUM BROMIDE 2.5 MCG (SPIRIVA) RESPIMAT INHALER IH SCH (10:15)
[2023-01-19] MEDS: BUDESONIDE/FORMETEROL FUMARATE 80/4.5 mcg INHALER IH SCH ×2 (10:15→21:13)
[2023-01-19] MEDS ORDERED: ALBUTEROL SO4 2.5/IPRATROPIUM 0.5 INH SOL 3 ML VIAL.NEB. NEB SCH (10:30)
[2023-01-19] MEDS: ALBUTEROL SO4 2.5/IPRATROPIUM 0.5 INH SOL 3 ML VIAL.NEB. NEB SCH ×3 (11:57→20:00)
[2023-01-19 12:00] LABS: RETICULOCYTES 1.01 % (0.5-1.5)
[2023-01-19 16:44] LABS: CALCIUM 9.5 mg/dL (8.5-10.1)
[2023-01-19 16:48] LABS: CREATININE 1.3 mg/dL (0.55-1.3)
[2023-01-19] MEDS ORDERED: SODIUM CHLORIDE 1,000 ML IV SCH (19:30)
[2023-01-19] MEDS: ATORVASTATIN CA 10 MG TABLET (FP) PO SCH (21:12)
[2023-01-19] MEDS: MONTELUKAST NA 10 MG TABLET PO SCH (21:12)
[2023-01-20] MEDS: ALBUTEROL SO4 2.5/IPRATROPIUM 0.5 INH SOL 3 ML VIAL.NEB. NEB SCH ×4 (07:20→20:00)
[2023-01-20 08:45] LABS: BASO % 0.2 % (0-2.0); HEMATOCRIT 31.4 % (32.4-45.2); HEMOGLOBIN 10.1 GM/dL (10.7-15.3); MCH 21.2 pg (25.7-33.7); MEAN CELL VOLUME 66.1 fl (80-96); MEAN PLT VOLUME 9.5 fl (7.5-11.1); MONO % 5.7 % (3.8-10.2); NEUT % 89.1 % (42.8-82.8); PLATELET COUNT 404 10^3/uL (134-434); RBC 4.75 M/mm3 (3.60-5.2); RDW 17.4 % (11.6-15.6); WHITE BLOOD COUNT 15.3 K/mm3 (4.0-10.0)
[2023-01-20 09:11] LABS: CALCIUM 9.7 mg/dL (8.5-10.1)
[2023-01-20 09:12] LABS: ALBUMIN 3.1 g/dl (3.4-5.0); BLOOD UREA NITROGEN 28.9 mg/dL (7-18)
[2023-01-20 09:16] LABS: BILIRUBIN,TOTAL 0.2 mg/dL (0.2-1); TOT PROT 7.4 g/dl (6.4-8.2)
[2023-01-20 09:18] LABS: CREATININE 1.1 mg/dL (0.55-1.3)
[2023-01-20] MEDS: DOXYCYCLINE INJECTION 100 MG in DEXTROSE 5%-WATER 100 ML IVPB SCH (10:06)
[2023-01-20] MEDS: HEPARIN NA (PORCINE) 5,000 UNITS/ML 1ML VIAL SQ SCH ×2 (10:07→22:13)
[2023-01-20] MEDS: FAMOTIDINE 20 MG TABLET PO SCH (10:07)
[2023-01-20] MEDS: FOLIC ACID 1 MG TABLET (FP) PO SCH (10:07)
[2023-01-20] MEDS: BUDESONIDE/FORMETEROL FUMARATE 80/4.5 mcg INHALER IH SCH ×2 (10:08→22:14)
[2023-01-20] MEDS: TIOTROPIUM BROMIDE 2.5 MCG (SPIRIVA) RESPIMAT INHALER IH SCH (10:08)
[2023-01-20] MEDS: PIPERACILLIN/TAZOB 3.375 GM 3.375 GM in DEXTROSE 5%-WATER - 50 ML IVPB SCH ×2 (17:53→17:54)
[2023-01-20] MEDS: MONTELUKAST NA 10 MG TABLET PO SCH (22:13)
[2023-01-20] MEDS: ATORVASTATIN CA 10 MG TABLET (FP) PO SCH (22:13)
[2023-01-21] MEDS: PIPERACILLIN/TAZOB 3.375 GM 3.375 GM in DEXTROSE 5%-WATER - 50 ML IVPB SCH ×3 (02:06→17:21)
[2023-01-21] MEDS: ALBUTEROL SO4 0.042% IH SOL 1.25 MG/3 ML VIAL.NEB NEB PRN (06:26)
[2023-01-21 07:46] LABS: HEMATOCRIT 28.7 % (32.4-45.2); HEMOGLOBIN 9.1 GM/dL (10.7-15.3); MCH 20.9 pg (25.7-33.7); MCHC 31.9 g/dl (32.0-36.0); MEAN CELL VOLUME 65.6 fl (80-96); MEAN PLT VOLUME 8.8 fl (7.5-11.1); PLATELET COUNT 426 10^3/uL (134-434); RBC 4.37 M/mm3 (3.60-5.2); RDW 17.4 % (11.6-15.6); WHITE BLOOD COUNT 8.7 K/mm3 (4.0-10.0)
[2023-01-21] MEDS: ALBUTEROL SO4 2.5/IPRATROPIUM 0.5 INH SOL 3 ML VIAL.NEB. NEB SCH ×4 (07:57→20:00)
[2023-01-21 08:16] LABS: ALBUMIN 2.8 g/dl (3.4-5.0); BLOOD UREA NITROGEN 25.4 mg/dL (7-18); MAGNESIUM 1.7 mg/dL (1.8-2.4)
[2023-01-21 08:18] LABS: CALCIUM 9.3 mg/dL (8.5-10.1)
[2023-01-21 08:19] LABS: CREATININE 1.1 mg/dL (0.55-1.3); PHOSPHOROUS 2.9 mg/dL (2.5-4.9)
[2023-01-21 08:20] LABS: TOT PROT 6.7 g/dl (6.4-8.2)
[2023-01-21 08:21] LABS: BILIRUBIN,TOTAL 0.4 mg/dL (0.2-1)
[2023-01-21] MEDS: HEPARIN NA (PORCINE) 5,000 UNITS/ML 1ML VIAL SQ SCH ×2 (09:34→21:22)
[2023-01-21] MEDS: FOLIC ACID 1 MG TABLET (FP) PO SCH (09:34)
[2023-01-21] MEDS: FAMOTIDINE 20 MG TABLET PO SCH (09:34)
[2023-01-21] MEDS: BUDESONIDE/FORMETEROL FUMARATE 80/4.5 mcg INHALER IH SCH ×2 (09:37→21:23)
[2023-01-21] MEDS: TIOTROPIUM BROMIDE 2.5 MCG (SPIRIVA) RESPIMAT INHALER IH SCH (09:37)
[2023-01-21 11:12] LABS: ANISOCYTOSIS 0; MACROCYTOSIS 0
[2023-01-21] MEDS: MONTELUKAST NA 10 MG TABLET PO SCH (21:22)
[2023-01-21] MEDS: ATORVASTATIN CA 10 MG TABLET (FP) PO SCH (21:22)
[2023-01-22] MEDS: PIPERACILLIN/TAZOB 3.375 GM 3.375 GM in DEXTROSE 5%-WATER - 50 ML IVPB SCH ×3 (03:59→18:41)
[2023-01-22] MEDS: ALBUTEROL SO4 0.042% IH SOL 1.25 MG/3 ML VIAL.NEB NEB PRN (05:50)
[2023-01-22] MEDS: ALBUTEROL SO4 2.5/IPRATROPIUM 0.5 INH SOL 3 ML VIAL.NEB. NEB SCH ×4 (07:30→20:22)
[2023-01-22 08:28] LABS: BASO % 0.6 % (0-2.0); EOS % 3.5 % (0-4.5); HEMATOCRIT 29.8 % (32.4-45.2); HEMOGLOBIN 9.4 GM/dL (10.7-15.3); LYMPH % 14.4 % (8-40); MCH 20.7 pg (25.7-33.7); MCHC 31.7 g/dl (32.0-36.0); MEAN CELL VOLUME 65.5 fl (80-96); MEAN PLT VOLUME 8.6 fl (7.5-11.1); MONO % 12.6 % (3.8-10.2); NEUT % 68.9 % (42.8-82.8); PLATELET COUNT 492 10^3/uL (134-434); RBC 4.55 M/mm3 (3.60-5.2); RDW 17.2 % (11.6-15.6)
[2023-01-22 08:36] LABS: CALCIUM 9.8 mg/dL (8.5-10.1)
[2023-01-22 08:37] LABS: ALBUMIN 2.9 g/dl (3.4-5.0); BLOOD UREA NITROGEN 14.9 mg/dL (7-18); MAGNESIUM 1.8 mg/dL (1.8-2.4)
[2023-01-22 08:39] LABS: PHOSPHOROUS 3.3 mg/dL (2.5-4.9)
[2023-01-22 08:41] LABS: BILIRUBIN,TOTAL 0.4 mg/dL (0.2-1); TOT PROT 6.8 g/dl (6.4-8.2)
[2023-01-22] MEDS: FOLIC ACID 1 MG TABLET (FP) PO SCH (09:44)
[2023-01-22] MEDS: HEPARIN NA (PORCINE) 5,000 UNITS/ML 1ML VIAL SQ SCH ×2 (09:44→22:31)
[2023-01-22] MEDS: TIOTROPIUM BROMIDE 2.5 MCG (SPIRIVA) RESPIMAT INHALER IH SCH (09:45)
[2023-01-22] MEDS: BUDESONIDE/FORMETEROL FUMARATE 80/4.5 mcg INHALER IH SCH ×2 (09:45→22:32)
[2023-01-22] MEDS: FAMOTIDINE 20 MG TABLET PO SCH (09:45)
[2023-01-22 10:27] LABS: ANISOCYTOSIS 1+; MACROCYTOSIS 0
[2023-01-22] MEDS: FUROSEMIDE 40 MG/4 ML INJECTABLE VIAL IVPUSH SCH (13:41)
[2023-01-22 14:49] LABS: N-TERMINAL BNP 438.6 pg/ml (5-450)
[2023-01-22] MEDS: MONTELUKAST NA 10 MG TABLET PO SCH (22:31)
[2023-01-22] MEDS: ATORVASTATIN CA 10 MG TABLET (FP) PO SCH (22:32)
[2023-01-23] MEDS: PIPERACILLIN/TAZOB 3.375 GM 3.375 GM in DEXTROSE 5%-WATER - 50 ML IVPB SCH ×3 (02:14→17:31)
[2023-01-23] MEDS ORDERED: ACETAMINOPHEN 1000 MG/100 ML BAG IVPB ONE (03:21)
[2023-01-23] MEDS: ALBUTEROL SO4 2.5/IPRATROPIUM 0.5 INH SOL 3 ML VIAL.NEB. NEB SCH ×4 (07:30→21:18)
[2023-01-23 09:50] LABS: HEMATOCRIT 29.3 % (32.4-45.2); HEMOGLOBIN 9.2 GM/dL (10.7-15.3); MCH 20.6 pg (25.7-33.7); MCHC 31.5 g/dl (32.0-36.0); MEAN CELL VOLUME 65.4 fl (80-96); MEAN PLT VOLUME 8.2 fl (7.5-11.1); PLATELET COUNT 530 10^3/uL (134-434); RBC 4.48 M/mm3 (3.60-5.2); RDW 17.2 % (11.6-15.6); WHITE BLOOD COUNT 12.5 K/mm3 (4.0-10.0)
[2023-01-23] MEDS: HEPARIN NA (PORCINE) 5,000 UNITS/ML 1ML VIAL SQ SCH ×2 (10:17→23:11)
[2023-01-23] MEDS: FUROSEMIDE 40 MG/4 ML INJECTABLE VIAL IVPUSH SCH (10:17)
[2023-01-23] MEDS: FOLIC ACID 1 MG TABLET (FP) PO SCH (10:18)
[2023-01-23] MEDS: TIOTROPIUM BROMIDE 2.5 MCG (SPIRIVA) RESPIMAT INHALER IH SCH (10:18)
[2023-01-23] MEDS: FAMOTIDINE 20 MG TABLET PO SCH (10:18)
[2023-01-23] MEDS: BUDESONIDE/FORMETEROL FUMARATE 80/4.5 mcg INHALER IH SCH ×2 (10:18→23:11)
[2023-01-23 10:59] LABS: ALBUMIN 2.8 g/dl (3.4-5.0); BILIRUBIN,TOTAL 0.4 mg/dL (0.2-1); BLOOD UREA NITROGEN 16.8 mg/dL (7-18); CALCIUM 9.4 mg/dL (8.5-10.1); CREATININE 1.2 mg/dL (0.55-1.3); TOT PROT 6.6 g/dl (6.4-8.2)
[2023-01-23 11:37] LABS: ANISOCYTOSIS 2+; MACROCYTOSIS 0
[2023-01-23] MEDS: INSULIN SLIDING SCALE (NOVOLOG) 1 VIAL SQ SCH ×2 (17:29→23:12)
[2023-01-23] MEDS: MONTELUKAST NA 10 MG TABLET PO SCH (23:11)
[2023-01-23] MEDS: ATORVASTATIN CA 10 MG TABLET (FP) PO SCH (23:11)
[2023-01-24] MEDS: PIPERACILLIN/TAZOB 3.375 GM 3.375 GM in DEXTROSE 5%-WATER - 50 ML IVPB SCH ×2 (03:13→10:03)
[2023-01-24] MEDS: INSULIN SLIDING SCALE (NOVOLOG) 1 VIAL SQ SCH ×4 (06:18→22:56)
[2023-01-24] MEDS: ALBUTEROL SO4 2.5/IPRATROPIUM 0.5 INH SOL 3 ML VIAL.NEB. NEB SCH ×4 (07:30→20:30)
[2023-01-24 07:34] LABS: ALBUMIN 3.1 g/dl (3.4-5.0); BASO % 0.8 % (0-2.0); BLOOD UREA NITROGEN 19.5 mg/dL (7-18); CALCIUM 9.5 mg/dL (8.5-10.1); CREATININE 1.3 mg/dL (0.55-1.3); EOS % 3.7 % (0-4.5); HEMATOCRIT 30.9 % (32.4-45.2); LYMPH % 9.4 % (8-40); MCH 20.9 pg (25.7-33.7); MCHC 32.2 g/dl (32.0-36.0); MEAN CELL VOLUME 65.1 fl (80-96); MEAN PLT VOLUME 8.3 fl (7.5-11.1); MONO % 6.9 % (3.8-10.2); NEUT % 79.2 % (42.8-82.8); PLATELET COUNT 631 10^3/uL (134-434); RBC 4.76 M/mm3 (3.60-5.2); WHITE BLOOD COUNT 13.6 K/mm3 (4.0-10.0)
[2023-01-24 07:35] LABS: BILIRUBIN,TOTAL 0.5 mg/dL (0.2-1); TOT PROT 7.3 g/dl (6.4-8.2)
[2023-01-24] MEDS: HEPARIN NA (PORCINE) 5,000 UNITS/ML 1ML VIAL SQ SCH ×2 (10:01→22:56)
[2023-01-24] MEDS: FOLIC ACID 1 MG TABLET (FP) PO SCH (10:01)
[2023-01-24] MEDS: FAMOTIDINE 20 MG TABLET PO SCH (10:02)
[2023-01-24] MEDS: FUROSEMIDE 40 MG/4 ML INJECTABLE VIAL IVPUSH SCH (10:02)
[2023-01-24] MEDS: TIOTROPIUM BROMIDE 2.5 MCG (SPIRIVA) RESPIMAT INHALER IH SCH (10:03)
[2023-01-24] MEDS: BUDESONIDE/FORMETEROL FUMARATE 80/4.5 mcg INHALER IH SCH ×2 (10:03→22:58)
[2023-01-24 12:16] LABS: MAGNESIUM 1.8 mg/dL (1.8-2.4)
[2023-01-24] MEDS: THEOPHYLLINE ANHYDROUS 200 MG CAP.ER.24H PO SCH (15:43)
[2023-01-24] MEDS ORDERED: INSULIN (NOVOLOG) ASPART 100 UNITS/ML 10ML VIAL ONE (17:28)
[2023-01-24] MEDS: AMOX TR/POT CLAV 500MG/125MG TABLETS (FP) PO SCH (17:49)
[2023-01-24] MEDS: ATORVASTATIN CA 10 MG TABLET (FP) PO SCH (22:56)
[2023-01-24] MEDS: MONTELUKAST NA 10 MG TABLET PO SCH (22:57)
[2023-01-25] MEDS ORDERED: ONDANSETRON 4 MG/2 ML VIAL IVPUSH ONE (00:13)
[2023-01-25] MEDS: INSULIN SLIDING SCALE (NOVOLOG) 1 VIAL SQ SCH ×4 (06:39→21:56)
[2023-01-25 08:36] LABS: HEMATOCRIT 31.5 % (32.4-45.2); HEMOGLOBIN 9.9 GM/dL (10.7-15.3); MCH 20.6 pg (25.7-33.7); MCHC 31.5 g/dl (32.0-36.0); MEAN CELL VOLUME 65.4 fl (80-96); MEAN PLT VOLUME 7.8 fl (7.5-11.1); PLATELET COUNT 708 10^3/uL (134-434); RBC 4.82 M/mm3 (3.60-5.2); RDW 17.4 % (11.6-15.6); WHITE BLOOD COUNT 12.8 K/mm3 (4.0-10.0)
[2023-01-25] MEDS: ALBUTEROL SO4 2.5/IPRATROPIUM 0.5 INH SOL 3 ML VIAL.NEB. NEB SCH (08:39)
[2023-01-25 09:10] LABS: HELMET CELLS 0; HOWELL-JOLLY BODIES 0; MACROCYTOSIS 0; OVALOCYTE 0; ROULEAU 0; SICKELED CELLS 0; TARGET CELLS 0; TEAR DROP CELLS 0; TOXIC GRANULATION 0
[2023-01-25 09:11] LABS: BLOOD UREA NITROGEN 23.4 mg/dL (7-18); CALCIUM 10.4 mg/dL (8.5-10.1)
[2023-01-25 09:12] LABS: ALBUMIN 3.2 g/dl (3.4-5.0); ANISOCYTOSIS 3+; MAGNESIUM 1.9 mg/dL (1.8-2.4)
[2023-01-25 09:13] LABS: PLATELET ESTIMATE INCREASED
[2023-01-25 09:14] LABS: CREATININE 1.3 mg/dL (0.55-1.3); PHOSPHOROUS 3.4 mg/dL (2.5-4.9)
[2023-01-25 09:16] LABS: TOT PROT 7.5 g/dl (6.4-8.2)
[2023-01-25 09:17] LABS: BILIRUBIN,TOTAL 0.4 mg/dL (0.2-1)
[2023-01-25] MEDS: AMOX TR/POT CLAV 500MG/125MG TABLETS (FP) PO SCH (09:17)
[2023-01-25] MEDS: HEPARIN NA (PORCINE) 5,000 UNITS/ML 1ML VIAL SQ SCH ×2 (09:35→21:49)
[2023-01-25] MEDS: FAMOTIDINE 20 MG TABLET PO SCH (09:36)
[2023-01-25] MEDS: THEOPHYLLINE ANHYDROUS 200 MG CAP.ER.24H PO SCH (09:36)
[2023-01-25] MEDS: FOLIC ACID 1 MG TABLET (FP) PO SCH (09:36)
[2023-01-25] MEDS: FUROSEMIDE 40 MG/4 ML INJECTABLE VIAL IVPUSH SCH (09:36)
[2023-01-25] MEDS: BUDESONIDE/FORMETEROL FUMARATE 80/4.5 mcg INHALER IH SCH ×2 (09:36→21:51)
[2023-01-25] MEDS: ACETYLCYSTEINE 20% 200MG/ML 4 ML VIAL *FOR ORAL / INH USE ONLY NEB SCH ×3 (12:12→20:25)
[2023-01-25] MEDS: ALBUTEROL SO4 0.042% IH SOL 1.25 MG/3 ML VIAL.NEB NEB SCH ×3 (12:13→20:25)
[2023-01-25] MEDS: ACETAMINOPHEN 325 MG TABLET (FP) PO PRN (16:45)
[2023-01-25] MEDS: MONTELUKAST NA 10 MG TABLET PO SCH (21:49)
[2023-01-25] MEDS: ATORVASTATIN CA 10 MG TABLET (FP) PO SCH (21:51)
[2023-01-26] MEDS ORDERED: FUROSEMIDE 40 MG TABLET (FP) PO SCH (06:00)
[2023-01-26] MEDS: INSULIN SLIDING SCALE (NOVOLOG) 1 VIAL SQ SCH ×4 (06:19→22:40)
[2023-01-26] MEDS: ACETYLCYSTEINE 20% 200MG/ML 4 ML VIAL *FOR ORAL / INH USE ONLY NEB SCH ×4 (07:32→20:00)
[2023-01-26] MEDS: ALBUTEROL SO4 0.042% IH SOL 1.25 MG/3 ML VIAL.NEB NEB SCH ×4 (07:32→20:00)
[2023-01-26 09:02] LABS: HEMATOCRIT 31.3 % (32.4-45.2); MCH 20.8 pg (25.7-33.7); MEAN PLT VOLUME 7.8 fl (7.5-11.1); PLATELET COUNT 707 10^3/uL (134-434); RBC 4.81 M/mm3 (3.60-5.2); RDW 17.1 % (11.6-15.6); WHITE BLOOD COUNT 11.5 K/mm3 (4.0-10.0)
[2023-01-26 09:16] LABS: BLOOD UREA NITROGEN 26.5 mg/dL (7-18); CALCIUM 10.5 mg/dL (8.5-10.1)
[2023-01-26 09:19] LABS: CREATININE 1.5 mg/dL (0.55-1.3)
[2023-01-26] MEDS: HEPARIN NA (PORCINE) 5,000 UNITS/ML 1ML VIAL SQ SCH ×2 (10:02→22:39)
[2023-01-26] MEDS: FERROUS SO4 325 MG TABLET (FP) PO SCH (10:02)
[2023-01-26] MEDS: ASCORBIC ACID 500 MG TABLET (FP) PO SCH (10:02)
[2023-01-26] MEDS: FAMOTIDINE 20 MG TABLET PO SCH (10:02)
[2023-01-26] MEDS: FOLIC ACID 1 MG TABLET (FP) PO SCH (10:04)
[2023-01-26] MEDS: THEOPHYLLINE ANHYDROUS 200 MG CAP.ER.24H PO SCH (10:04)
[2023-01-26] MEDS: BUDESONIDE/FORMETEROL FUMARATE 80/4.5 mcg INHALER IH SCH ×2 (10:05→22:39)
[2023-01-26 11:15] LABS: ANISOCYTOSIS 2+; MACROCYTOSIS 0; OVALOCYTE 2+; TARGET CELLS 2+
[2023-01-26] MEDS ORDERED: SODIUM CHLORIDE 0.9% 500 ML INFUS.BAG IV ONE (12:00)
[2023-01-26 14:45] LABS: BLOOD UREA NITROGEN 26.2 mg/dL (7-18); CALCIUM 10.2 mg/dL (8.5-10.1)
[2023-01-26 14:49] LABS: CREATININE 1.6 mg/dL (0.55-1.3)
[2023-01-26] MEDS: SODIUM CHLORIDE 1,000 ML IV SCH (16:23)
[2023-01-26] MEDS: ACETAMINOPHEN 325 MG TABLET (FP) PO PRN (17:57)
[2023-01-26] MEDS ORDERED: INSULIN (NOVOLOG) ASPART 100 UNITS/ML 10ML VIAL ONE (21:39)
[2023-01-26] MEDS: MONTELUKAST NA 10 MG TABLET PO SCH (22:40)
[2023-01-26] MEDS: ATORVASTATIN CA 10 MG TABLET (FP) PO SCH (22:40)
[2023-01-27] MEDS: SODIUM CHLORIDE 1,000 ML IV SCH (05:58)
[2023-01-27] MEDS: INSULIN SLIDING SCALE (NOVOLOG) 1 VIAL SQ SCH ×2 (06:13→11:01)
[2023-01-27] MEDS: ALBUTEROL SO4 0.083% IH SOL 2.5 MG/3 ML VIAL.NEB. NEB SCH ×2 (07:25→11:25)
[2023-01-27] MEDS: ACETYLCYSTEINE 20% 200MG/ML 4 ML VIAL *FOR ORAL / INH USE ONLY NEB SCH ×2 (07:25→11:25)
[2023-01-27 08:23] VITALS: RESP 19
[2023-01-27 08:57] LABS: HEMATOCRIT 30.8 % (32.4-45.2); HEMOGLOBIN 9.8 GM/dL (10.7-15.3); MCH 21.1 pg (25.7-33.7); MCHC 31.8 g/dl (32.0-36.0); MEAN CELL VOLUME 66.4 fl (80-96); PLATELET COUNT 551 10^3/uL (134-434); RBC 4.64 M/mm3 (3.60-5.2); RDW 17.4 % (11.6-15.6); WHITE BLOOD COUNT 10.6 K/mm3 (4.0-10.0)
[2023-01-27 09:42] LABS: ANISOCYTOSIS 2+; MACROCYTOSIS 0
[2023-01-27 09:45] LABS: CALCIUM 9.9 mg/dL (8.5-10.1); MAGNESIUM 1.9 mg/dL (1.8-2.4)
[2023-01-27 09:48] LABS: PHOSPHOROUS 3.1 mg/dL (2.5-4.9)
[2023-01-27 09:49] LABS: CREATININE 1.3 mg/dL (0.55-1.3)
[2023-01-27 09:50] LABS: BILIRUBIN,TOTAL 0.3 mg/dL (0.2-1); TOT PROT 7.2 g/dl (6.4-8.2)
[2023-01-27] MEDS: ASCORBIC ACID 500 MG TABLET (FP) PO SCH (10:45)
[2023-01-27] MEDS: THEOPHYLLINE ANHYDROUS 200 MG CAP.ER.24H PO SCH (10:45)
[2023-01-27] MEDS: HEPARIN NA (PORCINE) 5,000 UNITS/ML 1ML VIAL SQ SCH (10:45)
[2023-01-27] MEDS: FERROUS SO4 325 MG TABLET (FP) PO SCH (10:45)
[2023-01-27] MEDS: FAMOTIDINE 20 MG TABLET PO SCH (10:45)
[2023-01-27] MEDS: FOLIC ACID 1 MG TABLET (FP) PO SCH (10:45)
[2023-01-27] MEDS: BUDESONIDE/FORMETEROL FUMARATE 80/4.5 mcg INHALER IH SCH (10:46)
[2023-01-27 10:58] VITALS: BP 126/62; PULSE 92; TEMP 98.6
[2023-01-27] MEDS ORDERED: INSULIN (NOVOLOG) ASPART 100 UNITS/ML 10ML VIAL ONE (11:17)
== END 2023-01-27 13:31 | disposition home or self-care (01) | DRG 291 ==
LOC: JER 13:49 → JERBED 16:15 → UNDOADMOB 16:15 → INTOOBSV 16:15 → JERBED 18:13 → J7W 19:01 → OBSVTOIN 01-20 15:51 → INTOOBSV 01-20 15:51 → OBSVTOIN 01-20 16:00
PROVIDERS: ADMIT Internal Medicine; ATTEND Internal Medicine
DX: I11.0 Hypertensive heart disease with heart failure (principal); I50.33 Acute on chronic diastolic (congestive) heart failure; J44.1 Chronic obstructive pulmonary disease with (acute) exacerbation; E87.1 Hypo-osmolality and hyponatremia; N17.9 Acute kidney failure, unspecified; J96.11 Chronic respiratory failure with hypoxia; J98.11 Atelectasis; J44.0 Chronic obstructive pulmonary disease with (acute) lower respiratory infection; E78.5 Hyperlipidemia, unspecified; E11.9 Type 2 diabetes mellitus without complications; D64.9 Anemia, unspecified; C50.919 Malignant neoplasm of unspecified site of unspecified female breast; R50.9 Fever, unspecified; E86.0 Dehydration; J20.9 Acute bronchitis, unspecified; I27.20 Pulmonary hypertension, unspecified; R53.1 Weakness; E87.5 Hyperkalemia; J45.909 Unspecified asthma, uncomplicated; Z99.81 Dependence on supplemental oxygen; H93.8X9 Other specified disorders of ear, unspecified ear; Z86.718 Personal history of other venous thrombosis and embolism; Z86.711 Personal history of pulmonary embolism; Z85.038 Personal history of other malignant neoplasm of large intestine; Z85.43 Personal history of malignant neoplasm of ovary
CPT/HCPCS: 0241U-QW; 36415; 71045-TC-FY; 80048; 80053; 80198; 81003; 82272; 82550; 82553; 82728; 82803; 82962; 83540; 83550; 83605; 83735; 83880; 83970; 84100; 84484; 85025; 85045; 85610; 85730; 86140; 86850; 86900; 86901; 87040; 87086; 93005; 93010; 93306-TC; 94010; 94640; 97116-GP; 97161-GP; 99285-25; G0378; J1644

== ENCOUNTER 2023-11-29 09:49 | Inpatient (IN) | payer OTHER ==
[2023-11-29 10:27] VITALS: BMI 27.3
[2023-11-29] MEDS ORDERED: ALBUTEROL SO4 2.5/IPRATROPIUM 0.5 INH SOL 3 ML VIAL.NEB. NEB ONE (11:16)
[2023-11-29] MEDS: ALBUTEROL SO4 2.5/IPRATROPIUM 0.5 INH SOL 3 ML VIAL.NEB. NEB SCH (11:30)
[2023-11-29 12:30] LABS: BASO % 0.7 % (0-2.0); EOS % 2.7 % (0-4.5); HEMATOCRIT 35.5 % (32.4-45.2); HEMOGLOBIN 11.2 GM/dL (10.7-15.3); MCH 21.1 pg (25.7-33.7); MCHC 31.6 g/dl (32.0-36.0); MEAN CELL VOLUME 66.8 fl (80-96); MEAN PLT VOLUME 7.7 fl (7.5-11.1); MONO % 6.7 % (3.8-10.2); NEUT % 73.9 % (42.8-82.8); PLATELET COUNT 429 10^3/uL (134-434); RBC 5.31 M/mm3 (3.60-5.2); RDW 17.7 % (11.6-15.6); WHITE BLOOD COUNT 8.4 K/mm3 (4.0-10.0)
[2023-11-29 12:36] LABS: INR 1.08 (0.83-1.09); PROTHROMBIN TIME (PATIENT) 12.5 SEC (9.7-13.0)
[2023-11-29 12:39] LABS: ACTIVATED PTT 32.7 SECONDS (25.2-36.5)
[2023-11-29 12:53] LABS: POTASSIUM 5.2 mmol/L (3.5-5.1)
[2023-11-29 12:56] LABS: CALCIUM 10.3 mg/dL (8.5-10.1); VENOUS BASE EXCESS -0.5 mmol/L (-2-2); VENOUS O2 SATURATION 46.1 % (70-80); VENOUS PCO2 51.1 mmHg (38-52); VENOUS PH 7.327 (7.310-7.410)
[2023-11-29 12:58] LABS: ALBUMIN 3.8 g/dl (3.4-5.0); ANISOCYTOSIS 3+; BLOOD UREA NITROGEN 32.9 mg/dL (7-18); MACROCYTOSIS 0; MAGNESIUM 2.3 mg/dL (1.8-2.4)
[2023-11-29 13:01] LABS: BILIRUBIN,TOTAL 0.2 mg/dL (0.2-1)
[2023-11-29 13:03] LABS: TOT PROT 8.1 g/dl (6.4-8.2)
[2023-11-29 13:05] LABS: N-TERMINAL BNP 48.3 pg/ml (5-450)
[2023-11-29] MEDS ORDERED: HEPARIN NA (PORCINE) 5,000 UNITS/ML 1ML VIAL IVPUSH PRN ×2 (13:51)
[2023-11-29] MEDS ORDERED: HEPARIN NA (PORCINE) 5,000 UNITS/ML 1ML VIAL ONE (14:59)
[2023-11-29] MEDS ORDERED: HEPARIN INFUSION - 25,000 UNITS/500 ML INFUS.BAG IVPB ONE (14:59)
[2023-11-29] MEDS: HEPARIN NA (PORCINE) 5,000 UNITS/ML 1ML VIAL IVPUSH ONE (15:12)
[2023-11-29] MEDS: HEPARIN INFUSION - 25,000 UNITS/500 ML INFUS.BAG IVPB SCH (15:13)
[2023-11-29] MEDS ORDERED: APIXABAN 5 MG TABLET ONE (15:39)
[2023-11-29] MEDS ORDERED: SODIUM ZIRCONIUM CYCLOSILICATE (LOKELMA) 5 GM PACKET ONE (15:39)
[2023-11-29] MEDS: SODIUM ZIRCONIUM CYCLOSILICATE (LOKELMA) 5 GM PACKET PO ONE (15:42)
[2023-11-29] MEDS: APIXABAN 5 MG TABLET PO SCH (15:42)
[2023-11-29] MEDS: SODIUM CHLORIDE 0.45% 1,000 ML IV SCH (18:03)
[2023-11-29] MEDS: INSULIN (NOVOLOG) ASPART 100 UNITS/ML 10ML VIAL SQ SCH (19:34)
[2023-11-29] MEDS ORDERED: ALBUTEROL SO4 HFA INHALER IH PRN (19:40)
[2023-11-29] MEDS: ATORVASTATIN CA 10 MG TABLET (FP) PO SCH (22:56)
[2023-11-29] MEDS: MONTELUKAST NA 10 MG TABLET PO SCH (22:56)
[2023-11-30] MEDS: BUDESONIDE/FORMETEROL FUMARATE 160/4.5 mcg INHALER IH SCH (00:40)
[2023-11-30] MEDS ORDERED: LISINOPRIL 20 MG TABLET PO SCH (10:00)
[2023-11-30 10:17] LABS: BASO % 0.9 % (0-2.0); EOS % 3.7 % (0-4.5); HEMATOCRIT 36.2 % (32.4-45.2); HEMOGLOBIN 11.4 GM/dL (10.7-15.3); LYMPH % 18.5 % (8-40); MCH 21.5 pg (25.7-33.7); MCHC 31.5 g/dl (32.0-36.0); MEAN CELL VOLUME 68.1 fl (80-96); MEAN PLT VOLUME 8.7 fl (7.5-11.1); MONO % 9.3 % (3.8-10.2); NEUT % 67.6 % (42.8-82.8); PLATELET COUNT 438 10^3/uL (134-434); RBC 5.31 M/mm3 (3.60-5.2); RDW 17.5 % (11.6-15.6); WHITE BLOOD COUNT 6.4 K/mm3 (4.0-10.0)
[2023-11-30 10:46] LABS: POTASSIUM 5.9 mmol/L (3.5-5.1)
[2023-11-30 11:12] LABS: ALBUMIN 3.7 g/dl (3.4-5.0); BLOOD UREA NITROGEN 27.6 mg/dL (7-18); CALCIUM 9.9 mg/dL (8.5-10.1); MAGNESIUM 2.2 mg/dL (1.8-2.4)
[2023-11-30 11:15] LABS: CREATININE 1.4 mg/dL (0.55-1.3); PHOSPHOROUS 3.7 mg/dL (2.5-4.9)
[2023-11-30 11:16] LABS: BILIRUBIN,TOTAL 0.5 mg/dL (0.2-1)
[2023-11-30] MEDS: FOLIC ACID 1 MG TABLET (FP) PO SCH (11:38)
[2023-11-30] MEDS: FAMOTIDINE 10 MG TABLET PO SCH (11:38)
[2023-11-30] MEDS: THEOPHYLLINE ANHYDROUS 200 MG CAP.ER.24H PO SCH (11:39)
[2023-11-30] MEDS: TIOTROPIUM BROMIDE 2.5 MCG (SPIRIVA) RESPIMAT INHALER IH SCH (11:42)
[2023-11-30 16:29] LABS: POTASSIUM 5.3 mmol/L (3.5-5.1)
[2023-11-30 16:31] LABS: ALBUMIN 3.5 g/dl (3.4-5.0); BLOOD UREA NITROGEN 30.8 mg/dL (7-18); CALCIUM 9.7 mg/dL (8.5-10.1)
[2023-11-30 16:34] LABS: CREATININE 1.7 mg/dL (0.55-1.3)
[2023-11-30 16:36] LABS: BILIRUBIN,TOTAL 0.2 mg/dL (0.2-1); TOT PROT 7.2 g/dl (6.4-8.2)
[2023-11-30] MEDS: SODIUM ZIRCONIUM CYCLOSILICATE (LOKELMA) 5 GM PACKET PO ONE (17:40)
[2023-11-30] MEDS: SODIUM CHLORIDE 1,000 ML IV SCH (17:46)
[2023-12-01 10:03] LABS: BASO % 1.1 % (0-2.0); HEMATOCRIT 34.8 % (32.4-45.2); HEMOGLOBIN 11.2 GM/dL (10.7-15.3); LYMPH % 17.8 % (8-40); MCH 21.5 pg (25.7-33.7); MCHC 32.2 g/dl (32.0-36.0); MEAN PLT VOLUME 8.8 fl (7.5-11.1); NEUT % 69.1 % (42.8-82.8); PLATELET COUNT 416 10^3/uL (134-434); RBC 5.19 M/mm3 (3.60-5.2); RDW 17.5 % (11.6-15.6); WHITE BLOOD COUNT 6.5 K/mm3 (4.0-10.0)
[2023-12-01 10:22] LABS: POTASSIUM 4.5 mmol/L (3.5-5.1)
[2023-12-01 10:27] LABS: ALBUMIN 3.8 g/dl (3.4-5.0); CALCIUM 9.9 mg/dL (8.5-10.1)
[2023-12-01 10:28] LABS: BLOOD UREA NITROGEN 26.9 mg/dL (7-18)
[2023-12-01 10:30] LABS: CREATININE 1.3 mg/dL (0.55-1.3)
[2023-12-01 10:32] LABS: BILIRUBIN,TOTAL 0.4 mg/dL (0.2-1); TOT PROT 7.7 g/dl (6.4-8.2)
[2023-12-02] MEDS ORDERED: MECLIZINE HCL 25 MG TABLET (FP) PO PRN (09:19)
[2023-12-02] MEDS: LACTATED RINGERS SOLUTION 1,000 ML/1,000 ML INFUS.BAG IV SCH (09:31)
[2023-12-02 11:07] LABS: BASO % 1.1 % (0-2.0); EOS % 3.3 % (0-4.5); HEMATOCRIT 32.7 % (32.4-45.2); HEMOGLOBIN 10.2 GM/dL (10.7-15.3); LYMPH % 15.8 % (8-40); MCH 21.3 pg (25.7-33.7); MCHC 31.2 g/dl (32.0-36.0); MEAN CELL VOLUME 68.2 fl (80-96); MEAN PLT VOLUME 8.8 fl (7.5-11.1); MONO % 8.8 % (3.8-10.2); PLATELET COUNT 384 10^3/uL (134-434); RBC 4.79 M/mm3 (3.60-5.2); RDW 17.7 % (11.6-15.6)
[2023-12-02 11:30] LABS: POTASSIUM 4.2 mmol/L (3.5-5.1)
[2023-12-02 11:34] LABS: ALBUMIN 3.3 g/dl (3.4-5.0); BLOOD UREA NITROGEN 25.2 mg/dL (7-18)
[2023-12-02 11:37] LABS: CREATININE 1.3 mg/dL (0.55-1.3)
[2023-12-02 11:38] LABS: BILIRUBIN,TOTAL 0.4 mg/dL (0.2-1)
[2023-12-02 11:39] LABS: TOT PROT 7.2 g/dl (6.4-8.2)
[2023-12-02] MEDS: HEPARIN NA (PORCINE) 5,000 UNITS/ML 1ML VIAL SQ SCH (13:46)
[2023-12-03 09:49] LABS: BASO % 0.9 % (0-2.0); EOS % 3.7 % (0-4.5); HEMATOCRIT 33.8 % (32.4-45.2); HEMOGLOBIN 10.4 GM/dL (10.7-15.3); LYMPH % 16.6 % (8-40); MCH 20.7 pg (25.7-33.7); MCHC 30.7 g/dl (32.0-36.0); MEAN CELL VOLUME 67.6 fl (80-96); MONO % 7.8 % (3.8-10.2); PLATELET COUNT 384 10^3/uL (134-434); RDW 17.5 % (11.6-15.6); WHITE BLOOD COUNT 7.2 K/mm3 (4.0-10.0)
[2023-12-03 10:08] LABS: POTASSIUM 4.9 mmol/L (3.5-5.1)
[2023-12-03 10:17] LABS: CALCIUM 10.7 mg/dL (8.5-10.1)
[2023-12-03 10:18] LABS: ALBUMIN 3.6 g/dl (3.4-5.0); BLOOD UREA NITROGEN 20.4 mg/dL (7-18)
[2023-12-03 10:21] LABS: CREATININE 1.2 mg/dL (0.55-1.3)
[2023-12-03 10:22] LABS: TOT PROT 7.9 g/dl (6.4-8.2)
[2023-12-03 10:23] LABS: BILIRUBIN,TOTAL 0.4 mg/dL (0.2-1)
[2023-12-03 10:41] LABS: ANISOCYTOSIS 3+; MACROCYTOSIS 0
[2023-12-03] MEDS: methylPREDNISolone NA SUCC 40 MG/1 ML VIAL IVPUSH SCH (14:22)
[2023-12-03] MEDS: ALBUTEROL SO4 0.083% IH SOL 2.5 MG/3 ML VIAL.NEB. NEB SCH (15:46)
[2023-12-04] MEDS: predniSONE 20 MG TABLET (UD) PO SCH ×2 (11:02→17:00)
[2023-12-04] MEDS: PANTOPRAZOLE 40 MG TABLET PO SCH (11:06)
[2023-12-05] MEDS ORDERED: predniSONE 20 MG TABLET (UD) PO SCH (10:00)
[2023-12-05] MEDS: predniSONE 20 MG TABLET (UD) PO SCH (21:36)
[2023-12-06] MEDS: SIMETHICONE 40 MG/0.6 ML BOTTLE PO PRN (07:11)
[2023-12-06 13:18] LABS: POTASSIUM 4.8 mmol/L (3.5-5.1)
[2023-12-06 13:20] LABS: ALBUMIN 3.7 g/dl (3.4-5.0); CALCIUM 10.3 mg/dL (8.5-10.1)
[2023-12-06 13:23] LABS: CREATININE 1.8 mg/dL (0.55-1.3)
[2023-12-06 13:25] LABS: BILIRUBIN,TOTAL 0.2 mg/dL (0.2-1); TOT PROT 8.1 g/dl (6.4-8.2)
[2023-12-06 13:31] LABS: BLOOD UREA NITROGEN 49.9 mg/dL (7-18)
[2023-12-06] MEDS: SODIUM CHLORIDE 1,000 ML IV SCH (14:46)
[2023-12-06 15:37] VITALS: BP 120/71; PULSE 99; RESP 18; TEMP 99
== END 2023-12-06 18:02 | DRG 191 ==
LOC: JER 09:49 → INTOOBSV 14:05 → UNDOADMOB 14:05 → JERBED 14:05 → J5S 18:50 → OBSVTOIN 11-30 09:29
PROVIDERS: ADMIT Internal Medicine
DX: J44.1 Chronic obstructive pulmonary disease with (acute) exacerbation (principal); I13.0 Hypertensive heart and chronic kidney disease with heart failure and stage 1 through stage 4 chronic kidney disease, or unspecified chronic kidney disease; J96.11 Chronic respiratory failure with hypoxia; N17.9 Acute kidney failure, unspecified; H81.10 Benign paroxysmal vertigo, unspecified ear; I50.9 Heart failure, unspecified; E83.52 Hypercalcemia; N18.9 Chronic kidney disease, unspecified; E78.5 Hyperlipidemia, unspecified
CPT/HCPCS: 0241U-QW; 36415; 71045-TC-FY; 71275-TC; 80053; 82803; 82962; 83735; 83880; 83970; 84100; 84484; 85025; 85610; 85730; 87635; 93005; 93010; 93306-TC; 93308; 93970; 93970-TC; 94640; 94761; 97116-GP; 97162-GP; 99285-25; G0378; J1644; Q9967

== ENCOUNTER 2024-01-03 14:03 | Inpatient (IN) | payer OTHER ==
[2024-01-03 15:07] LABS: HEMATOCRIT 38.2 % (32.4-45.2); HEMOGLOBIN 11.8 GM/dL (10.7-15.3); MCH 20.8 pg (25.7-33.7); MEAN CELL VOLUME 67.1 fl (80-96); MEAN PLT VOLUME 7.6 fl (7.5-11.1); PLATELET COUNT 658 10^3/uL (134-434); RBC 5.69 M/mm3 (3.60-5.2); RDW 18.8 % (11.6-15.6); WHITE BLOOD COUNT 12.4 K/mm3 (4.0-10.0)
[2024-01-03 15:09] LABS: INR 1.1 (0.83-1.09); PROTHROMBIN TIME (PATIENT) 12.7 SEC (9.7-13.0)
[2024-01-03 15:12] LABS: ACTIVATED PTT 31.7 SECONDS (25.2-36.5)
[2024-01-03 15:29] LABS: MAGNESIUM 1.8 mg/dL (1.8-2.4); POTASSIUM 5.2 mmol/L (3.5-5.1)
[2024-01-03 15:31] LABS: ALBUMIN 3.6 g/dl (3.4-5.0); BLOOD UREA NITROGEN 23.2 mg/dL (7-18); CALCIUM 10.4 mg/dL (8.5-10.1)
[2024-01-03 15:34] LABS: CREATININE 1.3 mg/dL (0.55-1.3); VENOUS BASE EXCESS 0.5 mmol/L (-2-2); VENOUS O2 SATURATION 48.1 % (70-80); VENOUS PCO2 48.2 mmHg (38-52); VENOUS PH 7.359 (7.310-7.410)
[2024-01-03 15:36] LABS: BILIRUBIN,TOTAL 0.2 mg/dL (0.2-1); TOT PROT 8.1 g/dl (6.4-8.2)
[2024-01-03 15:37] LABS: N-TERMINAL BNP 82.9 pg/ml (5-450)
[2024-01-03 15:53] LABS: ANISOCYTOSIS 0; MACROCYTOSIS 0
[2024-01-03] MEDS ORDERED: SODIUM ZIRCONIUM CYCLOSILICATE (LOKELMA) 10 GM PACKET ONE (16:33)
[2024-01-03] MEDS: SODIUM ZIRCONIUM CYCLOSILICATE (LOKELMA) 5 GM PACKET PO ONE (17:06)
[2024-01-03] MEDS ORDERED: ENOXAPARIN NA (PORCINE) 40 MG/0.4 ML DISP.SYRIN SQ SCH (19:00)
[2024-01-03] MEDS ORDERED: ALBUTEROL SO4 2.5/IPRATROPIUM 0.5 INH SOL 3 ML VIAL.NEB. NEB ONE (20:10)
[2024-01-03] MEDS: ALBUTEROL SO4 2.5/IPRATROPIUM 0.5 INH SOL 3 ML VIAL.NEB. NEB SCH (20:25)
[2024-01-03 21:42] LABS: PH,URINE 6.5 (5.0-8.0); URINE APPEARANCE CLEAR; URINE BILIRUBIN NEGATIVE (NEGATIVE); URINE COLOR YELLOW; URINE GLUCOSE (UA) NEGATIVE (NEGATIVE); URINE KETONE NEGATIVE (NEGATIVE); URINE LEUK ESTERASE NEGATIVE (NEGATIVE); URINE NITRITE NEGATIVE (NEGATIVE); URINE PROTEIN NEGATIVE (NEGATIVE); URINE UROBILINOGEN 0.2 mg/dL (0.2-1.0)
[2024-01-03] MEDS: MONTELUKAST NA 10 MG TABLET PO SCH (21:44)
[2024-01-03] MEDS: HEPARIN NA (PORCINE) 5,000 UNITS/ML 1ML VIAL SQ SCH (21:44)
[2024-01-03] MEDS: INSULIN ASPART SLIDING SCALE (NOVOLOG) 1 VIAL SQ SCH (21:45)
[2024-01-03] MEDS: ATORVASTATIN CA 10 MG TABLET (FP) PO SCH (21:45)
[2024-01-03] MEDS: INSULIN (LEVEMIR) 100 UNITS/ML UNITS SQ SCH (21:46)
[2024-01-03] MEDS ORDERED: SALMETEROL IH SCH (22:00)
[2024-01-03] MEDS ORDERED: FLUTICASONE PROPION IH SCH (22:00)
[2024-01-03] MEDS ORDERED: [UNRECOGNIZED DRUG - OTHER] IH SCH (22:00)
[2024-01-03] MEDS ORDERED: PATIENT'S OWN MEDICATION (NON-FORMULARY) (Pravastatin Sodium 40 MG Tablet) PO SCH (22:00)
[2024-01-04 07:40] LABS: HEMATOCRIT 33.5 % (32.4-45.2); HEMOGLOBIN 10.5 GM/dL (10.7-15.3); MCH 21.3 pg (25.7-33.7); MCHC 31.4 g/dl (32.0-36.0); MEAN CELL VOLUME 67.8 fl (80-96); MEAN PLT VOLUME 7.9 fl (7.5-11.1); PLATELET COUNT 564 10^3/uL (134-434); RBC 4.94 M/mm3 (3.60-5.2); RDW 18.2 % (11.6-15.6); WHITE BLOOD COUNT 9.7 K/mm3 (4.0-10.0)
[2024-01-04 07:49] LABS: POTASSIUM 4.2 mmol/L (3.5-5.1)
[2024-01-04 08:19] LABS: ALBUMIN 3.1 g/dl (3.4-5.0); BLOOD UREA NITROGEN 26.9 mg/dL (7-18); MAGNESIUM 1.9 mg/dL (1.8-2.4)
[2024-01-04 08:21] LABS: CREATININE 1.3 mg/dL (0.55-1.3); PHOSPHOROUS 4.1 mg/dL (2.5-4.9)
[2024-01-04 08:22] LABS: BILIRUBIN,TOTAL 0.3 mg/dL (0.2-1); TOT PROT 6.8 g/dl (6.4-8.2)
[2024-01-04] MEDS: PANTOPRAZOLE 40 MG TABLET PO SCH (09:58)
[2024-01-04] MEDS: predniSONE 20 MG TABLET (UD) PO SCH (09:58)
[2024-01-05 07:19] LABS: HEMATOCRIT 30.4 % (32.4-45.2); HEMOGLOBIN 9.8 GM/dL (10.7-15.3); MCH 21.7 pg (25.7-33.7); MCHC 32.2 g/dl (32.0-36.0); MEAN CELL VOLUME 67.5 fl (80-96); MEAN PLT VOLUME 7.8 fl (7.5-11.1); PLATELET COUNT 553 10^3/uL (134-434); RBC 4.51 M/mm3 (3.60-5.2); RDW 18.4 % (11.6-15.6); WHITE BLOOD COUNT 11.5 K/mm3 (4.0-10.0)
[2024-01-05 07:38] LABS: POTASSIUM 4.4 mmol/L (3.5-5.1)
[2024-01-05 07:40] LABS: CALCIUM 9.5 mg/dL (8.5-10.1)
[2024-01-05 07:41] LABS: BLOOD UREA NITROGEN 43.6 mg/dL (7-18)
[2024-01-05 07:43] LABS: CREATININE 1.3 mg/dL (0.55-1.3); PHOSPHOROUS 4.3 mg/dL (2.5-4.9)
[2024-01-05 07:45] LABS: BILIRUBIN,TOTAL 0.2 mg/dL (0.2-1); TOT PROT 6.6 g/dl (6.4-8.2)
[2024-01-05 08:35] LABS: ANISOCYTOSIS 1+; MACROCYTOSIS 0
[2024-01-05] MEDS: FLUTICASONE/UMECLIDIN/VILANTER(200-62.5-25 TRELEGY ELLIPTA) INAHLER IH SCH (14:18)
[2024-01-05] MEDS: THEOPHYLLINE ANHYDROUS 200 MG CAP.ER.24H PO SCH (17:54)
[2024-01-06 07:21] LABS: HEMATOCRIT 31.5 % (32.4-45.2); HEMOGLOBIN 9.7 GM/dL (10.7-15.3); MCH 20.9 pg (25.7-33.7); MCHC 30.9 g/dl (32.0-36.0); MEAN CELL VOLUME 67.6 fl (80-96); PLATELET COUNT 532 10^3/uL (134-434); RBC 4.66 M/mm3 (3.60-5.2); RDW 18.4 % (11.6-15.6)
[2024-01-06 07:25] LABS: POTASSIUM 4.9 mmol/L (3.5-5.1)
[2024-01-06 07:26] LABS: CALCIUM 9.7 mg/dL (8.5-10.1)
[2024-01-06 07:28] LABS: BLOOD UREA NITROGEN 43.6 mg/dL (7-18); MAGNESIUM 1.9 mg/dL (1.8-2.4)
[2024-01-06 07:30] LABS: CREATININE 1.3 mg/dL (0.55-1.3); PHOSPHOROUS 3.4 mg/dL (2.5-4.9)
[2024-01-06 07:32] LABS: BILIRUBIN,TOTAL 0.2 mg/dL (0.2-1); TOT PROT 6.6 g/dl (6.4-8.2)
[2024-01-06 08:39] LABS: ANISOCYTOSIS 2+; MACROCYTOSIS 0
[2024-01-06] MEDS: POLYETHYLENE GLYCOL (HEALTHYLAX) 3350 17 GM PACKET PO ONE (09:11)
[2024-01-06 15:50] VITALS: BP 134/78; PULSE 98; RESP 21; TEMP 98.1
[2024-01-06 23:55] VITALS: BMI 27.3
== END 2024-01-06 15:20 | disposition home health service (06) | DRG 191 ==
LOC: JER 14:03 → JERBED 16:04 → J4W 21:15 → OBSVTOIN 01-05 15:21
PROVIDERS: ADMIT Internal Medicine; ATTEND Internal Medicine
DX: J43.9 Emphysema, unspecified (principal); J44.1 Chronic obstructive pulmonary disease with (acute) exacerbation; J45.901 Unspecified asthma with (acute) exacerbation; J98.11 Atelectasis; D64.9 Anemia, unspecified; I10 Essential (primary) hypertension; E78.5 Hyperlipidemia, unspecified; E11.9 Type 2 diabetes mellitus without complications; Z99.81 Dependence on supplemental oxygen; Z86.718 Personal history of other venous thrombosis and embolism; Z86.711 Personal history of pulmonary embolism; Z87.891 Personal history of nicotine dependence; E87.5 Hyperkalemia; Z85.3 Personal history of malignant neoplasm of breast; Z85.038 Personal history of other malignant neoplasm of large intestine; Z85.43 Personal history of malignant neoplasm of ovary
CPT/HCPCS: 0241U-QW; 36415; 71045-TC-FY; 71275-TC; 80053; 81003; 82803; 82962; 83605; 83735; 83880; 84100; 84484; 85025; 85027; 85610; 85730; 86850; 86900; 86901; 87040; 87086; 93005; 93010; 93970-TC; 94010; 94640; 97116-GP; 97161-GP; 99291; G0378; J1644; Q9967

== ENCOUNTER 2024-02-16 10:35 | Inpatient (IN) | payer OTHER ==
[2024-02-16 13:18] LABS: HEMATOCRIT 35.2 % (32.4-45.2); HEMOGLOBIN 10.9 GM/dL (10.7-15.3); MCH 20.8 pg (25.7-33.7); MEAN CELL VOLUME 67.2 fl (80-96); MEAN PLT VOLUME 8.7 fl (7.5-11.1); PLATELET COUNT 384 10^3/uL (134-434); RBC 5.24 M/mm3 (3.60-5.2); RDW 18.4 % (11.6-15.6); WHITE BLOOD COUNT 9.3 K/mm3 (4.0-10.0)
[2024-02-16 13:23] LABS: INR 1.08 (0.83-1.09); PROTHROMBIN TIME (PATIENT) 12.2 SEC (9.7-13.0)
[2024-02-16 13:26] LABS: ACTIVATED PTT 31.9 SECONDS (25.2-36.5)
[2024-02-16 13:38] LABS: POTASSIUM 5.1 mmol/L (3.5-5.1)
[2024-02-16 13:40] LABS: CALCIUM 10.5 mg/dL (8.5-10.1)
[2024-02-16 13:41] LABS: ALBUMIN 3.4 g/dl (3.4-5.0); BLOOD UREA NITROGEN 26.4 mg/dL (7-18)
[2024-02-16 13:44] LABS: CREATININE 1.7 mg/dL (0.55-1.3)
[2024-02-16 13:45] LABS: TOT PROT 7.5 g/dl (6.4-8.2)
[2024-02-16 13:46] LABS: BILIRUBIN,TOTAL 0.3 mg/dL (0.2-1)
[2024-02-16] MEDS: LACTATED RINGERS SOLUTION 1000 ML INFUS.BAG IV ONE (14:14)
[2024-02-16 14:25] LABS: ANISOCYTOSIS 1+; MACROCYTOSIS 0
[2024-02-16 20:46] VITALS: BMI 26.6
[2024-02-17 06:17] LABS: ARTERIAL BLD GAS O2 SATURATION 96.3 % (95-98); ARTERIAL BLOOD GAS BASE EXCESS 1.7 mmol/L (-2-2); ARTERIAL BLOOD GAS PO2 79.7 mmHg (80-100)
[2024-02-17] MEDS: LACTATED RINGERS SOLUTION 1,000 ML/1,000 ML INFUS.BAG IV SCH ×2 (06:19→12:57)
[2024-02-17] MEDS: ZOLEDRONIC ACID 4 MG in SODIUM CHLORIDE 100 ML IVPB ONE (06:20)
[2024-02-17 06:25] LABS: ALLENS TEST POSITIVE
[2024-02-17 08:49] LABS: BASO % 0.9 % (0-2.0); EOS % 2.9 % (0-4.5); HEMATOCRIT 32.7 % (32.4-45.2); HEMOGLOBIN 10.4 GM/dL (10.7-15.3); LYMPH % 17.6 % (8-40); MCH 21.2 pg (25.7-33.7); MCHC 31.8 g/dl (32.0-36.0); MEAN CELL VOLUME 66.6 fl (80-96); MEAN PLT VOLUME 9.2 fl (7.5-11.1); MONO % 10.4 % (3.8-10.2); NEUT % 68.2 % (42.8-82.8); PLATELET COUNT 353 10^3/uL (134-434); RBC 4.91 M/mm3 (3.60-5.2); WHITE BLOOD COUNT 6.3 K/mm3 (4.0-10.0)
[2024-02-17 09:04] LABS: POTASSIUM 4.7 mmol/L (3.5-5.1)
[2024-02-17 09:17] LABS: ALBUMIN 3.2 g/dl (3.4-5.0); BLOOD UREA NITROGEN 24.2 mg/dL (7-18); CALCIUM 10.2 mg/dL (8.5-10.1)
[2024-02-17 09:19] LABS: MAGNESIUM 1.9 mg/dL (1.8-2.4)
[2024-02-17 09:20] LABS: CREATININE 1.5 mg/dL (0.55-1.3); PHOSPHOROUS 3.1 mg/dL (2.5-4.9)
[2024-02-17 09:22] LABS: BILIRUBIN,TOTAL 0.5 mg/dL (0.2-1); TOT PROT 6.7 g/dl (6.4-8.2)
[2024-02-17] MEDS: PANTOPRAZOLE 40 MG TABLET PO SCH (10:13)
[2024-02-17] MEDS: TIOTROPIUM BROMIDE 2.5 MCG (SPIRIVA) RESPIMAT INHALER IH SCH (10:19)
[2024-02-17] MEDS: BUDESONIDE/FORMOTEROL FUMARATE 80-4.5 MCG (10.3 GM INHALER) IH SCH (10:19)
[2024-02-17] MEDS: THEOPHYLLINE ANHYDROUS 200 MG CAP.ER.24H PO SCH (10:20)
[2024-02-17] MEDS: METHIMAZOLE 5 MG TABLET PO SCH (13:20)
[2024-02-17] MEDS: ONDANSETRON 4 MG/2 ML VIAL IVPUSH PRN (15:23)
[2024-02-17] MEDS: INSULIN ASPART SLIDING SCALE (NOVOLOG) 1 VIAL SQ SCH (16:51)
[2024-02-17] MEDS: HEPARIN NA (PORCINE) 5,000 UNITS/ML 1ML VIAL SQ SCH (21:42)
[2024-02-17] MEDS: ATORVASTATIN CA 10 MG TABLET (FP) PO SCH (21:42)
[2024-02-17] MEDS: MONTELUKAST NA 10 MG TABLET PO SCH (21:42)
[2024-02-18 09:16] LABS: POTASSIUM 4.5 mmol/L (3.5-5.1)
[2024-02-18 09:34] LABS: CALCIUM 9.2 mg/dL (8.5-10.1)
[2024-02-18 09:35] LABS: BLOOD UREA NITROGEN 12.2 mg/dL (7-18)
[2024-02-18 09:38] LABS: CREATININE 1.2 mg/dL (0.55-1.3)
[2024-02-18] MEDS: METHIMAZOLE 10 MG TABLET PO SCH (21:35)
[2024-02-19] MEDS: POLYETHYLENE GLYCOL (HEALTHYLAX) 3350 17 GM PACKET PO PRN (14:33)
[2024-02-19] MEDS: DOCUSATE NA 100 MG/10 ML UNIT-DOSE CUPS PO PRN (14:33)
[2024-02-20 10:04] LABS: BASO % 0.4 % (0-2.0); HEMATOCRIT 30.5 % (32.4-45.2); HEMOGLOBIN 9.5 GM/dL (10.7-15.3); LYMPH % 12.9 % (8-40); MCH 20.9 pg (25.7-33.7); MCHC 31.3 g/dl (32.0-36.0); MEAN CELL VOLUME 66.8 fl (80-96); MEAN PLT VOLUME 9.3 fl (7.5-11.1); NEUT % 72.7 % (42.8-82.8); PLATELET COUNT 285 10^3/uL (134-434); RBC 4.56 M/mm3 (3.60-5.2); RDW 18.1 % (11.6-15.6); WHITE BLOOD COUNT 6.8 K/mm3 (4.0-10.0)
[2024-02-20 10:21] LABS: POTASSIUM 4.5 mmol/L (3.5-5.1)
[2024-02-20 10:26] LABS: CALCIUM 8.8 mg/dL (8.5-10.1)
[2024-02-20 10:30] LABS: CREATININE 1.2 mg/dL (0.55-1.3)
[2024-02-20 10:32] LABS: BILIRUBIN,TOTAL 0.3 mg/dL (0.2-1); TOT PROT 6.3 g/dl (6.4-8.2)
[2024-02-20 10:47] LABS: ANISOCYTOSIS 3+; MACROCYTOSIS 0
[2024-02-20] MEDS: FUROSEMIDE 40 MG/4 ML INJECTABLE VIAL IVPUSH ONE (12:16)
[2024-02-20 16:08] LABS: THYROID STIM IMMUNOGLOBULIN <0.10 IU/L (0.00-0.55)
[2024-02-21 08:43] LABS: POTASSIUM 4.1 mmol/L (3.5-5.1)
[2024-02-21 08:45] LABS: HEMATOCRIT 29.9 % (32.4-45.2); HEMOGLOBIN 9.4 GM/dL (10.7-15.3); MCHC 31.3 g/dl (32.0-36.0); MEAN CELL VOLUME 66.9 fl (80-96); MEAN PLT VOLUME 9.2 fl (7.5-11.1); PLATELET COUNT 370 10^3/uL (134-434); RBC 4.48 M/mm3 (3.60-5.2); RDW 17.8 % (11.6-15.6)
[2024-02-21 08:52] LABS: BLOOD UREA NITROGEN 11.2 mg/dL (7-18); CALCIUM 8.5 mg/dL (8.5-10.1)
[2024-02-21 08:53] LABS: ALBUMIN 2.9 g/dl (3.4-5.0)
[2024-02-21 08:56] LABS: CREATININE 1.2 mg/dL (0.55-1.3)
[2024-02-21 08:57] LABS: BILIRUBIN,TOTAL 0.4 mg/dL (0.2-1); TOT PROT 6.3 g/dl (6.4-8.2)
[2024-02-21] MEDS: ACETAMINOPHEN 325 MG TABLET (FP) PO PRN (12:16)
[2024-02-22 08:22] LABS: HEMATOCRIT 31.3 % (32.4-45.2); MCH 21.6 pg (25.7-33.7); MCHC 32.1 g/dl (32.0-36.0); MEAN CELL VOLUME 67.4 fl (80-96); MEAN PLT VOLUME 9.4 fl (7.5-11.1); PLATELET COUNT 409 10^3/uL (134-434); POTASSIUM 4.4 mmol/L (3.5-5.1); RBC 4.64 M/mm3 (3.60-5.2); RDW 18.2 % (11.6-15.6); WHITE BLOOD COUNT 7.4 K/mm3 (4.0-10.0)
[2024-02-22 08:27] LABS: CALCIUM 8.4 mg/dL (8.5-10.1)
[2024-02-22 08:28] LABS: ALBUMIN 3.2 g/dl (3.4-5.0); BLOOD UREA NITROGEN 12.5 mg/dL (7-18)
[2024-02-22 08:31] LABS: CREATININE 1.3 mg/dL (0.55-1.3)
[2024-02-22 08:32] LABS: BILIRUBIN,TOTAL 0.4 mg/dL (0.2-1); TOT PROT 6.8 g/dl (6.4-8.2)
[2024-02-23 07:30] LABS: HEMOGLOBIN 9.8 GM/dL (10.7-15.3); WHITE BLOOD COUNT 7.5 K/mm3 (4.0-10.0)
[2024-02-23 07:31] LABS: HEMATOCRIT 31.2 % (32.4-45.2); MCH 20.7 pg (25.7-33.7); MCHC 31.2 g/dl (32.0-36.0); MEAN CELL VOLUME 66.4 fl (80-96); MEAN PLT VOLUME 8.9 fl (7.5-11.1); PLATELET COUNT 414 10^3/uL (134-434)
[2024-02-23 07:47] LABS: POTASSIUM 4.3 mmol/L (3.5-5.1)
[2024-02-23 07:49] LABS: CALCIUM 7.9 mg/dL (8.5-10.1)
[2024-02-23 07:50] LABS: BLOOD UREA NITROGEN 12.7 mg/dL (7-18)
[2024-02-23 07:53] LABS: CREATININE 1.4 mg/dL (0.55-1.3)
[2024-02-23 07:54] LABS: BILIRUBIN,TOTAL 0.3 mg/dL (0.2-1); TOT PROT 6.4 g/dl (6.4-8.2)
[2024-02-23] MEDS: MIDODRINE HCL 5 MG TABLET PO SCH (14:18)
[2024-02-24 06:48] VITALS: RESP 18
[2024-02-24 09:04] VITALS: BP 108/68; PULSE 103; TEMP 98.2
== END 2024-02-24 12:05 | DRG 640 ==
LOC: JER 10:35 → JERBED 17:27 → J5S 19:56 → OBSVTOIN 21:29 → J4W 02-21 17:13
PROVIDERS: ADMIT Internal Medicine; ATTEND Internal Medicine
DX: E86.0 Dehydration (principal); E43 Unspecified severe protein-calorie malnutrition; J96.11 Chronic respiratory failure with hypoxia; I50.32 Chronic diastolic (congestive) heart failure; I11.0 Hypertensive heart disease with heart failure; J45.909 Unspecified asthma, uncomplicated; J44.9 Chronic obstructive pulmonary disease, unspecified; E11.9 Type 2 diabetes mellitus without complications; E05.90 Thyrotoxicosis, unspecified without thyrotoxic crisis or storm; J06.9 Acute upper respiratory infection, unspecified; I95.1 Orthostatic hypotension; R63.4 Abnormal weight loss; Z68.26 Body mass index [BMI] 26.0-26.9, adult; R62.7 Adult failure to thrive; D64.9 Anemia, unspecified; E83.52 Hypercalcemia; M85.88 Other specified disorders of bone density and structure, other site; Z86.718 Personal history of other venous thrombosis and embolism; Z85.3 Personal history of malignant neoplasm of breast; Z85.038 Personal history of other malignant neoplasm of large intestine; Z85.43 Personal history of malignant neoplasm of ovary; Z99.81 Dependence on supplemental oxygen
CPT/HCPCS: 36415; 36600; 71045-TC-FY; 76705-TC; 80048; 80053; 82306; 82533; 82803; 82962; 83036; 83690; 83735; 83970; 84100; 84439; 84443; 84445; 84484; 85025; 85027; 85610; 85730; 86376; 86800; 87635; 93005; 93010; 97116-GP; 97162-GP; 99285-25; G0378; J1644; J3489